=== PATIENT | male | born 1955 | race Caucasian/White ===

== ENCOUNTER 2020-08-10 12:06 | Emergency (ER) | payer MEDICARE, MEDICAID, SELFPAY ==
[2020-08-10 11:43] VITALS: BP 99/64; PULSE 100; O2SAT 91
[2020-08-10 11:46] VITALS: BP 151/131; PULSE 103; RESP 20; TEMP 36.6; O2SAT 99; BMI 33.4
--- NOTE | 2020-08-10 11:48 | HMH.EDNVD ---
ED Disposition Clinical Impression: Gastroenteritis Leukocytosis Qualifiers: Leukocytosis type: other Qualified Code(s): D72.828 - Other elevated white blood cell count Disposition: Home, Self-Care Condition on Discharge: Good Instructions: DI for Diarrhea and Traveler's Diarrhea -- Adult, DI for Nausea -- Adult Referrals: Leonel Dixon MD [Primary Care Provider] - 3 days - Critical Care Critical Care Time: No Attestation: On , the high probability of a clinically significant, sudden or life threatening deterioration of the following system(s) required my full and direct attention, intervention and personal management. The time I documented below is in addition to time spent performing reported procedures but includes the following listed in this critical care notation. Medical Decision Making - Mikey Inquiry Pt receiving controlled substance: No Mikey was queried for this patient: No Vital Signs: 08/10/20 11:43 08/10/20 11:46 08/10/20 12:13 Temperature 97.9 F Temperature Source Oral Pulse Rate [Radial] 100 H 103 H 89 Respiratory Rate 20 Blood Pressure [Right Arm] 99/64 L 151/131 H 90/65 L Blood Pressure Mean [Right Arm] 75 137 73 Blood Pressure Source [Right Arm] Manual Cuff/ Doppler Automatic Cuff Automatic Cuff Blood Pressure Position [Right Arm] Sitting Sitting Sitting 02 Sat by Pulse Oximetry 91 L 99 91 L Oxygen Delivery Method Room Air Room Air Room Air 08/10/20 12:30 Temperature Temperature Source Pulse Rate [Radial] 89 Respiratory Rate Blood Pressure [Right Arm] 102/63 L Blood Pressure Mean [Right Arm] 76 Blood Pressure Source [Right Arm] Automatic Cuff Blood Pressure Position [Right Arm] Sitting 02 Sat by Pulse Oximetry Oxygen Delivery Method - Lab Data Lab Results 08/10/20 11:56: WBC 18.1 H, RBC 4.90, Hgb 15.1, Hct 46.3, MCV 94.3 H, MCH 30.9, MCHC 32.7, RDW 13.8, Plt Count 249, MPV 8.0, Neut % (Auto) 87.6 H, Lymph % (Auto) 2.9 L, [place] % (Auto) 8.2, Eos % (Auto) 0.9, Baso % (Auto) 0.4, Neut # (Auto) 15.9 H, Lymph # (Auto) 0.5 L, [place] # (Auto) 1.5 H, Eos # (Auto) 0.2, Baso # (Auto) 0.1, Total Counted 100, Neutrophils % (Manual) 84 H, Lymphocytes % (Manual) 3 L, Monocytes % (Manual) 12 H, Eosinophils % (Manual) 1, Platelet Estimate Normal, RBC Morphology Normal 08/10/20 11:56: Sodium 143, Potassium 4.5, Chloride 106, Carbon Dioxide 26, Anion Gap 15.5 H, BUN 21 H, Creatinine 1.30 H, Estimated Creat Clear 82, Estimated GFR 56 L, Est GFR ( Amer) 67, Glucose 188 H, Calcium 9.2, Total Bilirubin 0.3, AST 26, ALT 28, Alkaline Phosphatase 82, Total Protein 6.8, Albumin 4.0, Globulin 2.8, Albumin/Globulin Ratio 1.4, Lipase 55 08/10/20 12:05: Urine Color Yellow, Urine Appearance Clear, Urine pH 5.5, Ur Specific [place] >= 1.030, Urine Protein 1+, Urine Glucose (UA) Negative, Urine Ketones Trace, Urine Blood Negative, Urine Nitrate Negative, Urine Bilirubin 1+ A, Urine Urobilinogen 0.2, Ur Leukocyte Esterase Negative, Urine WBC 3-5, Ur Squamous Epith Cells 3-5 Result diagrams: 08/10/20 11:56 08/10/20 11:56 Orders (Tests/Meds): ED MEDICATIONS Discontinued Medications Generic Name Dose Route Start Last Admin Trade Name Freq PRN Reason Stop Dose Admin Sodium Chloride 1,000 mls @ 999 mls/hr 08/10/20 12:00 08/10/20 12:00 Sod Chlor 0.9% 1000ml Bag IV 08/10/20 13:00 999 mls/hr .Q1H1M MARLEN Administration Ondansetron HCl 4 mg 08/10/20 11:48 08/10/20 12:00 Ondansetron 4mg/2ml Vial IV 08/10/20 11:49 4 mg ONCE ONE Administration ORDERS Category Date Time Status Covid-19 IgG/IgM ([facility]) Stat Lab 08/10/20 11:56 Received Covid-19 Nasal PCR ([facility]) Routine Lab 08/10/20 11:46 Ordered Diarrhea 6-11 Panel, Cdiff PCR Stat Lab 08/10/20 12:05 Received Medical Decision Narrative: 65yo M evaluated for nausea/vomiting/diarrhea. Differential diagnosis includes but not limited to: Gastroenteritis, foodborne illness, colitis, small bowel obstruction, ileus, s
[2020-08-10 12:09] LABS: Chloride 106 mmol/L (98-107); Potassium 4.5 mmoL/L (3.5-5.1); Sodium 143 mmol/L (136-145)
[2020-08-10 12:11] LABS: Alanine Aminotransferase 28 U/L (12-78); Aspartate Amino Transferase 26 U/L (17-59); Blood Urea Nitrogen 21 mg/dl (9-20); Creatinine Clearance Estimated 82 mL/min (50-200); Estimated Glomerular Filt Rate 56 ml/min (>60); GFR (African American) 67 ML/MIN (>60)
[2020-08-10 12:12] LABS: Adenovirus F 40/41, stool Not Detected (NotDetected); Astrovirus Not Detected (NotDetected); Campylobacter Not Detected (NotDetected); Clostridium Difficile A/B, PCR Not Detected (NotDetected); Cryptosporidium Not Detected (NotDetected); Cyclospora Cayetanesis Not Detected (NotDetected); Entamoeba histolytica Not Detected (NotDetected); Enteroaggregative E coli Not Detected (NotDetected); Enteropathogenic E coli Not Detected (NotDetected); Enterotoxigenic E coli Not Detected (NotDetected); Giardia lamblia Not Detected (NotDetected); Microscopic, Urine URINE MICROSCOPIC (MICROSCOPIC); Norovirus Not Detected (NotDetected); Plesimonas Shigalloides, PCR Not Detected (NotDetected); Rotavirus A Not Detected (NotDetected); Salmonella, PCR Not Detected (NotDetected); Sapovirus Not Detected (NotDetected); Shiga-like toxin E coli Not Detected (NotDetected); Shigella Enterovasive E coli Not Detected (NotDetected); Vibrio Cholerae Not Detected (NotDetected); Vibrio, PCR Not Detected (NotDetected); Yersinia Entercolitica, PCR Not Detected (NotDetected)
[2020-08-10 12:12] LABS: Albumin/Globulin Ratio 1.4 (1.1-1.8); Alkaline Phosphatase 82 U/L (38-126); Anion Gap 15.5 mEq/L (5-15); Bilirubin,Total 0.3 mg/dl (0.2-1.3); Calcium 9.2 mg/dl (8.4-10.2); Carbon Dioxide 26 mmol/L (22.0-30.0); Globulin 2.8 g/dL (1.3-3.2); Glucose 188 mg/dl (74-100); Lipase 55 U/L (23-300); Total Protein,Serum 6.8 g/dl (6.3-8.2)
[2020-08-10 12:13] VITALS: BP 90/65; PULSE 89; O2SAT 91
[2020-08-10 12:13] LABS: Basophils # 0.1 K/mm3 (0-0.2); Basophils % 0.4 % (0.1-2.0); Eosinophils # 0.2 K/mm3 (0.0-0.4); Eosinophils % 0.9 % (0.1-12.0); Hematocrit 46.3 % (42.0-52.0); Hemoglobin 15.1 g/dL (14.1-18.0); Lymphocytes # 0.5 K/mm3 (0.7-4.5); Lymphocytes % 2.9 % (10-50); Mean Corpuscular HGB Conc 32.7 g/dL (31.8-35.4); Mean Corpuscular Hemoglobin 30.9 pg (27.0-31.2); Mean Corpuscular Volume 94.3 fl (80-94); Monocytes # 1.5 K/mm3 (0.1-1.0); Monocytes % 8.2 % (1.7-9.3); Neutrophils # 15.9 K/mm3 (1.8-7.8); Neutrophils % 87.6 % (37.0-80.0); Platelet Count 249 K/mm3 (142-424); Red Cell Distribution Width 13.8 % (11.5-17.5); White Blood Count 18.1 K/mm3 (4.8-10.8)
[2020-08-10 12:17] LABS: Appearance,Urine CLEAR (Clear); Blood, Urine Negative (Negative); Color,Urine YELLOW (Yellow); Glucose,Urine (UA) Negative (Negative); Ketones,Urine TRACE (Negative); Leukocyte Esterase,Urine Negative (Negative); Nitrate,Urine Negative (Negative); PH,Urine 5.5 (5.0-8.5); Protein,Urine 1+ (Negative); Specific Gravity, Urine >= 1.030 (1.005-1.030); Urobilinogen,Urine 0.2 EU/dl (0.2)
[2020-08-10 12:21] LABS: Bilirubin,Urine 1+ (Negative)
[2020-08-10 12:22] LABS: MANUAL DIFFERENTIAL MANUAL DIFFERENTIAL (MANUAL DIFF)
--- NOTE | 2020-08-10 12:22 | CT_ITS ---
PROCEDURE: CT ABDOMEN PELVIS WO CON CLINICAL INDICATION: n/v, pain, wbc 18 COMPARISON: No exams were available for comparison TECHNIQUE: Axial images obtained with sagittal and coronal reformats. All CT scans at the facility use one or more dose reduction, viz: automated exposure control, ma/kV adjustment per patient size (including targeted exams where dose is matched to indication, i.e. head), or iterative reconstruction technique. FINDINGS: Lower thorax: The lower lung davila are clear. There are small bilateral pleural effusions. There is mild generalized cardiomegaly. ABDOMEN: Liver: No masses or biliary dilatation. Gallbladder: Markedly contracted with a probable tiny calcified gallstone Pancreas: No masses or peripancreatic fluid collections. Spleen: unremarkable Adrenals: unremarkable Kidneys/ureters: Kidneys are normal in size and there is a tiny nonobstructing calculus lower pole of each kidney. There is a tiny exophytic benign-appearing cystic lesion mid pole right kidney. There is no obstructive uropathy of either kidney. ABDOMEN & PELVIS: Stomach bowel: There is a small hiatal hernia. The stomach is mildly dilated with air but appears normal, the duodenal sweep is normal. Small bowel is unremarkable. There are apparent surgical clips in the cecum. There is mild scattered stool and gas seen throughout the colon. There is moderate diffuse diverticulosis of the lower descending and sigmoid colon but there is no evidence of diverticulitis. The rectum appears normal. Peritoneum: There is a ventral hernia just inferior to the umbilicus the mouth of the hernia measuring 2.5 cm containing mesentery and a nondilated loop of small bowel. The hernia sac measures 12.8 x 7.2 by 9.6 cm. There are mild postsurgical changes from left inguinal hernia repair. There is slight haziness to the subcutaneous fat just at and inferior to the umbilicus in adjacent to the hernia which could represent a small area of cellulitis. Lymph nodes: No enlarged lymph nodes apparent. Vasculature: There is mild scattered arteriosclerotic calcification of the lower abdominal aorta at the bifurcation but there is no aneurysm. Bones: There are moderate multilevel degenerate changes lower thoracic spine. PELVIS: Reproductive: unremarkable Bladder: The urinary bladder is decompressed, the prostate is mildly enlarged. .. Appendix: The appendix is not definitely visualized and there may have been a previous appendectomy as there is a surgical clip right lower quadrant. IMPRESSION: Moderate sized ventral hernia inferior to the umbilicus with measurements as described above with nondilated non incarcerated loop of small bowel and mesentery. Possible small diffuse area of cellulitis just to the right of the ventral hernia 1. Small contracted gallbladder with a probable small gallstone 2. Moderate diffuse diverticulosis of the sigmoid colon without diverticulitis Dictated by: Dr. Ernst Mayen MD 08/10/2020 13:32 Dr. Ernst Mayen MD in [place] 08/10/2020 13:32
[2020-08-10 12:24] LABS: Eosinophils % 1 % (0-3); Lymphocytes % 3 % (10-50); Monocytes % 12 % (2-9); Neutrophils % 84 % (42-76); Total Cells Counted 100
[2020-08-10 12:25] LABS: RBC Morphology Normal
[2020-08-10 12:26] LABS: Platelet Estimate Normal
[2020-08-10 12:30] VITALS: BP 102/63; PULSE 89
--- NOTE | 2020-08-10 12:57 | PC.NURSE ---
pt going to radiology
--- NOTE | 2020-08-10 13:12 | PC.NURSE ---
pt returning from radiology
--- NOTE | 2020-08-10 13:13 | PC.NURSE ---
pt taken to restroom
--- NOTE | 2020-08-10 13:27 | PC.NURSE ---
pt going back to restroom
--- NOTE | 2020-08-10 13:39 | PC.NURSE ---
pt returned to room
[2020-08-10 13:59] LABS: Coronavirus 19 IgG Antibody Negative (Negative); Coronavirus 19 IgM Antibody Negative (Negative)
--- NOTE | 2020-08-10 14:16 | PC.NURSE ---
pt taken to restroom
--- NOTE | 2020-08-10 14:40 | PC.NURSE ---
Report given to [facility] by SHAINA Grimes and notified he is ready for pickup at this time.
[2020-08-10 14:48] VITALS: BP 102/63; PULSE 89; RESP 20; TEMP 36.6; O2SAT 99
== END 2020-08-10 14:49 | disposition home or self-care (01) ==
PROVIDERS: Emergency Provider Family Medicine; PCP Emergency Medicine
DX: K52.9 Noninfective gastroenteritis and colitis, unspecified (principal); R19.7 Diarrhea, unspecified; D72.828 Other elevated white blood cell count; Z01.84 Encounter for antibody response examination; E78.5 Hyperlipidemia, unspecified; I10 Essential (primary) hypertension; F41.8 Other specified anxiety disorders; Z79.899 Other long term (current) drug therapy
CPT/HCPCS: 74176; 80053; 81001; 83690; 85007; 85025; 86328; 87506; 96365; 96375; 99284; J2405

== ENCOUNTER 2020-08-12 20:26 | Emergency (ER) | payer MEDICARE, MEDICAID, SELFPAY ==
[2020-08-12 20:31] VITALS: BP 96/61; PULSE 94; RESP 16; TEMP 36.9; O2SAT 95; BMI 34.4
--- NOTE | 2020-08-12 21:21 | HMH.EDNVD ---
ED Disposition Clinical Impression: Ventral hernia without obstruction or gangrene, Diverticulosis, Obesity (BMI 30-39.9), Gastroenteritis, Elevated C-reactive protein (CRP) Disposition: Home, Self-Care Condition on Discharge: Good Instructions: DI for Diarrhea and Traveler's Diarrhea -- Adult Additional Instructions: see dr jo for follow up and use meds as directed Prescriptions: metroNIDAZOLE [Flagyl 500mg Tablet] 500 mg PO TID #30 tab Transmission Status: Pending to [facility] Referrals: Leonel Dioxn MD [Primary Care Provider] - - Critical Care Critical Care Time: No Attestation: On 08/12/20, the high probability of a clinically significant, sudden or life threatening deterioration of the following system(s) required my full and direct attention, intervention and personal management. The time I documented below is in addition to time spent performing reported procedures but includes the following listed in this critical care notation. Medical Decision Making - Medical Records Medical records reviewed: Yes: I reviewed the patient's medical records. - Mikey Inquiry Pt receiving controlled substance: No Vital Signs: 08/12/20 20:31 08/12/20 22:00 08/12/20 22:30 Temperature 98.5 F Temperature Source Oral Pulse Rate [Right] 94 H 97 H 90 Respiratory Rate 16 17 18 Blood Pressure [Right Arm] 96/61 L 121/65 116/65 Blood Pressure Mean [Right Arm] 72 83 82 Blood Pressure Source [Right Arm] Automatic Cuff Automatic Cuff Automatic Cuff Blood Pressure Position [Right Arm] Supine Supine Supine 02 Sat by Pulse Oximetry 95 94 L 93 L Oxygen Delivery Method Room Air Room Air Room Air 08/12/20 23:00 08/12/20 23:46 08/12/20 23:47 Temperature Temperature Source Pulse Rate [Right] 94 H Respiratory Rate 18 Blood Pressure [Right Arm] 107/56 L 144/77 H 102/58 L Blood Pressure Mean [Right Arm] 73 99 72 Blood Pressure Source [Right Arm] Automatic Cuff Automatic Cuff Automatic Cuff Blood Pressure Position [Right Arm] Supine Supine Standing 02 Sat by Pulse Oximetry 92 L Oxygen Delivery Method Room Air 08/13/20 00:30 Temperature Temperature Source Pulse Rate [Right] 80 Respiratory Rate 16 Blood Pressure [Right Arm] 110/65 Blood Pressure Mean [Right Arm] 80 Blood Pressure Source [Right Arm] Automatic Cuff Blood Pressure Position [Right Arm] Supine 02 Sat by Pulse Oximetry 94 L Oxygen Delivery Method Room Air - Lab Data Lab results reviewed: Yes: I reviewed the patient's lab results. Lab Results 08/12/20 20:50: WBC 7.9 D, RBC 4.71, Hgb 14.5, Hct 45.5, MCV 96.5 H, MCH 30.9, MCHC 32.0, RDW 14.0, Plt Count 247, MPV 8.5, Neut % (Auto) 62.5, Lymph % (Auto) 18.3, [place] % (Auto) 15.0 H, Eos % (Auto) 4.0, Baso % (Auto) 0.3, Neut # (Auto) 4.9, Lymph # (Auto) 1.4, [place] # (Auto) 1.2 H, Eos # (Auto) 0.3, Baso # (Auto) 0.0, ESR 25 H 08/12/20 20:50: Sodium 139, Potassium 4.0, Chloride 107, Carbon Dioxide 23, Anion Gap 13.0, BUN 29 H D, Creatinine 1.20, Estimated Creat Clear 89, Estimated GFR 61, Est GFR ( Amer) 74, Glucose 121 H, Calcium 8.5, Total Bilirubin 0.4, AST 23, ALT 21, Alkaline Phosphatase 57, C-Reactive Protein 76.6 H, Total Protein 6.5, Albumin 3.6, Globulin 2.9, Albumin/Globulin Ratio 1.2, Amylase < 30 L, Lipase 35, Procalcitonin 0.555 08/12/20 20:50: SARS-CoV-2 IgG Ab (Rapid) Negative, SARS-CoV-2 IgM Ab (Rapid) Negative Result diagrams: 08/12/20 20:50 08/12/20 20:50 Orders (Tests/Meds): ED MEDICATIONS Generic Name Dose Route Start Last Admin Trade Name Freq PRN Reason Stop Dose Admin Sodium Chloride 1,000 mls @ 999 mls/hr 08/12/20 20:45 08/12/20 22:17 Sod Chlor 0.9% 1000ml Bag IV 08/12/20 21:45 999 mls/hr .Q1H1M MARLEN Administration Sodium Chloride 1,000 mls @ 999 mls/hr 08/12/20 23:45 08/12/20 23:36 Sod Chlor 0.9% 1000ml Bag IV 08/13/20 00:45 999 mls/hr .Q1H1M MARLEN Administration Discontinued Medications Generic Name Dose Route Start Las
[2020-08-12 21:43] LABS: Sodium 139 mmol/L (136-145)
[2020-08-12 21:45] LABS: Alanine Aminotransferase 21 U/L (12-78); Alkaline Phosphatase 57 U/L (38-126); Aspartate Amino Transferase 23 U/L (17-59); Basophils % 0.3 % (0.1-2.0); Bilirubin,Total 0.4 mg/dl (0.2-1.3); Blood Urea Nitrogen 29 mg/dl (9-20); Carbon Dioxide 23 mmol/L (22.0-30.0); Creatinine Clearance Estimated 89 mL/min (50-200); Eosinophils # 0.3 K/mm3 (0.0-0.4); Estimated Glomerular Filt Rate 61 ml/min (>60); GFR (African American) 74 ML/MIN (>60); Hematocrit 45.5 % (42.0-52.0); Hemoglobin 14.5 g/dL (14.1-18.0); Lymphocytes # 1.4 K/mm3 (0.7-4.5); Lymphocytes % 18.3 % (10-50); Mean Corpuscular Hemoglobin 30.9 pg (27.0-31.2); Mean Corpuscular Volume 96.5 fl (80-94); Mean Platelet Volume 8.5 fl (7.4-10.4); Monocytes # 1.2 K/mm3 (0.1-1.0); Neutrophils # 4.9 K/mm3 (1.8-7.8); Neutrophils % 62.5 % (37.0-80.0); Platelet Count 247 K/mm3 (142-424); Red Blood Count 4.71 M/mm3 (4.60-6.20); White Blood Count 7.9 K/mm3 (4.8-10.8)
[2020-08-12 21:46] LABS: Albumin Level 3.6 g/dl (3.5-5.0); Albumin/Globulin Ratio 1.2 (1.1-1.8); Calcium 8.5 mg/dl (8.4-10.2); Chloride 107 mmol/L (98-107); Globulin 2.9 g/dL (1.3-3.2); Glucose 121 mg/dl (74-100); Lipase 35 U/L (23-300); Total Protein,Serum 6.5 g/dl (6.3-8.2)
[2020-08-12 21:51] LABS: C-Reactive Protein 76.6 mg/L (0-4)
[2020-08-12 21:59] LABS: Amylase < 30 U/L (30-110)
[2020-08-12 22:00] VITALS: BP 121/65; PULSE 97; RESP 17; O2SAT 94
[2020-08-12 22:00] LABS: Coronavirus 19 IgG Antibody Negative (Negative); Coronavirus 19 IgM Antibody Negative (Negative)
[2020-08-12 22:07] LABS: Procalcitonin 0.555 ng/mL (0.0-2.0)
[2020-08-12 22:30] VITALS: BP 116/65; PULSE 90; RESP 18; O2SAT 93
[2020-08-12 22:33] LABS: Erythrocyte Sedimentation Rate 25 mm/hr (0-20)
[2020-08-12 23:00] VITALS: BP 107/56; PULSE 94; RESP 18; O2SAT 92
[2020-08-12 23:46] VITALS: BP 144/77
[2020-08-12 23:47] VITALS: BP 102/58; BP 104/59
[2020-08-13 00:30] VITALS: BP 110/65; PULSE 80; RESP 16; O2SAT 94
[2020-08-13 02:19] LABS: Adenovirus F 40/41, stool Not Detected (NotDetected); Astrovirus Not Detected (NotDetected); Campylobacter Not Detected (NotDetected); Clostridium Difficile A/B, PCR Not Detected (NotDetected); Cryptosporidium Not Detected (NotDetected); Cyclospora Cayetanesis Not Detected (NotDetected); Entamoeba histolytica Not Detected (NotDetected); Enteroaggregative E coli Not Detected (NotDetected); Enteropathogenic E coli Not Detected (NotDetected); Enterotoxigenic E coli Not Detected (NotDetected); Giardia lamblia Not Detected (NotDetected); Norovirus Not Detected (NotDetected); Plesimonas Shigalloides, PCR Not Detected (NotDetected); Rotavirus A Not Detected (NotDetected); Salmonella, PCR Not Detected (NotDetected); Sapovirus Not Detected (NotDetected); Shiga-like toxin E coli Not Detected (NotDetected); Shigella Enterovasive E coli Not Detected (NotDetected); Vibrio Cholerae Not Detected (NotDetected); Vibrio, PCR Not Detected (NotDetected); Yersinia Entercolitica, PCR Not Detected (NotDetected)
[2020-08-13 02:31] VITALS: BP 115/67; PULSE 82; RESP 16; TEMP 36.7; O2SAT 98
[2020-08-13 02:35] LABS: Valproic Acid, (Depakene) 63.6 ug/ml (50-100)
== END 2020-08-13 02:34 | disposition home or self-care (01) ==
PROVIDERS: Emergency Provider Emergency Medicine; PCP Emergency Medicine
DX: K43.9 Ventral hernia without obstruction or gangrene (principal); K52.9 Noninfective gastroenteritis and colitis, unspecified; K57.90 Diverticulosis of intestine, part unspecified, without perforation or abscess without bleeding; R79.82 Elevated C-reactive protein (CRP); Z01.84 Encounter for antibody response examination; E66.9 Obesity, unspecified; Z68.34 Body mass index [BMI] 34.0-34.9, adult
CPT/HCPCS: 80053; 80164; 80165; 82150; 83690; 84145; 85025; 85651; 86140; 86328; 87507; 96365; 96366; 96375; 99283; J2405

== ENCOUNTER 2020-10-16 15:13 | Emergency (ER) | payer MEDICARE, MEDICAID, SELFPAY ==
[2020-10-16 15:14] VITALS: BP 140/65; PULSE 104; RESP 16; TEMP 36.6; O2SAT 96; BMI 36.0
--- NOTE | 2020-10-16 15:23 | XR_ITS ---
PROCEDURE: XR CHEST PORTABLE CLINICAL HISTORY: R/O pneumonia Cough COMPARISON: CT CT ABDOMEN PELVIS WO CON from 08/10/2020 FINDINGS: Borderline cardiomegaly without failure. There is an irregular opacity in the right lung base laterally possibly due to an area scarring. Upright PA and lateral chest may provide further evaluation. There is some atelectatic or fibrotic change in the right midlung. No acute bony abnormalities. IMPRESSION: There is an irregular opacity in the right lung base laterally possibly due to an area scarring. Upright PA and lateral chest may provide further evaluation. There is some atelectatic or fibrotic change in the right midlung Dictated by: Josias Thacker MD 10/16/2020 15:59 Josias Thacker MD in [place] 10/16/2020 15:59
[2020-10-16 15:32] LABS: Basophils % 0.3 % (0.1-2.0); Eosinophils # 0.1 K/mm3 (0.0-0.4); Eosinophils % 1.4 % (0.1-12.0); Hematocrit 44.9 % (42.0-52.0); Hemoglobin 14.8 g/dL (14.1-18.0); Lymphocytes # 1.1 K/mm3 (0.7-4.5); Lymphocytes % 13.3 % (10-50); Mean Corpuscular HGB Conc 32.9 g/dL (31.8-35.4); Mean Corpuscular Hemoglobin 30.9 pg (27.0-31.2); Mean Corpuscular Volume 93.8 fl (80-94); Mean Platelet Volume 7.9 fl (7.4-10.4); Monocytes # 0.4 K/mm3 (0.1-1.0); Monocytes % 4.6 % (1.7-9.3); Neutrophils # 6.4 K/mm3 (1.8-7.8); Neutrophils % 80.4 % (37.0-80.0); Platelet Count 198 K/mm3 (142-424); Red Blood Count 4.78 M/mm3 (4.60-6.20); Red Cell Distribution Width 13.9 % (11.5-17.5)
[2020-10-16 15:33] LABS: Chloride 106 mmol/L (98-107); Sodium 141 mmol/L (136-145)
[2020-10-16 15:34] LABS: Potassium 4.3 mmoL/L (3.5-5.1)
[2020-10-16 15:36] LABS: Blood Urea Nitrogen 15 mg/dl (9-20); Creatinine Clearance Estimated 112 mL/min (50-200); Estimated Glomerular Filt Rate 98 ml/min (>60); GFR (African American) 118 ML/MIN (>60)
[2020-10-16 15:37] LABS: Anion Gap 11.3 mEq/L (5-15); Calcium 9.4 mg/dl (8.4-10.2); Carbon Dioxide 28 mmol/L (22.0-30.0); Glucose 205 mg/dl (74-100)
--- NOTE | 2020-10-16 16:02 | HMH.EDNVD ---
ED Disposition Clinical Impression: Nausea vomiting and diarrhea Disposition: Home, Self-Care Condition on Discharge: Good Instructions: DI for Diarrhea and Traveler's Diarrhea -- Adult, Nausea and Vomiting-Adult Prescriptions: Ondansetron [Zofran 4mg ODT] 4 mg PO Q6 PRN #10 tab.rapdis PRN Reason: Nausea Prescription Printed Referrals: Leonel Dixon MD [Primary Care Provider] - 3 days - Critical Care Critical Care Time: No Attestation: On 10/16/20, the high probability of a clinically significant, sudden or life threatening deterioration of the following system(s) required my full and direct attention, intervention and personal management. The time I documented below is in addition to time spent performing reported procedures but includes the following listed in this critical care notation. Medical Decision Making - Medical Records Medical records reviewed: Yes: I reviewed the patient's medical records. - Mikey Inquiry Pt receiving controlled substance: No Vital Signs: 10/16/20 15:14 10/16/20 16:43 Temperature 97.9 F Temperature Source Oral Pulse Rate [Right Radial] 104 H 93 H Respiratory Rate 16 Blood Pressure [Right Arm] 140/65 102/53 L Blood Pressure Mean [Right Arm] 90 69 Blood Pressure Source [Right Arm] Automatic Cuff Automatic Cuff Blood Pressure Position [Right Arm] Supine Sitting 02 Sat by Pulse Oximetry 96 Oxygen Delivery Method Room Air - Lab Data Lab results reviewed: Yes: I reviewed the patient's lab results. Lab Results 10/16/20 15:15: WBC 8.0, RBC 4.78, Hgb 14.8, Hct 44.9, MCV 93.8, MCH 30.9, MCHC 32.9, RDW 13.9, Plt Count 198, MPV 7.9, Neut % (Auto) 80.4 H, Lymph % (Auto) 13.3, [place] % (Auto) 4.6, Eos % (Auto) 1.4, Baso % (Auto) 0.3, Neut # (Auto) 6.4, Lymph # (Auto) 1.1, [place] # (Auto) 0.4, Eos # (Auto) 0.1, Baso # (Auto) 0.0 10/16/20 15:15: Sodium 141, Potassium 4.3, Chloride 106, Carbon Dioxide 28, Anion Gap 11.3, BUN 15, Creatinine 0.80, Estimated Creat Clear 112, Estimated GFR 98, Est GFR ( Amer) 118, Glucose 205 H, Calcium 9.4 10/16/20 15:15: SARS-CoV-2 IgG Ab (Rapid) Negative, SARS-CoV-2 IgM Ab (Rapid) Negative Result diagrams: 10/16/20 15:15 10/16/20 15:15 Orders (Tests/Meds): ED MEDICATIONS Generic Name Dose Route Start Last Admin Trade Name Freq PRN Reason Stop Dose Admin Sodium Chloride 1,000 mls @ 999 mls/hr 10/16/20 16:15 10/16/20 16:15 Sod Chlor 0.9% 1000ml Bag IV 10/16/20 17:15 999 mls/hr .Q1H1M MARLEN Administration Discontinued Medications Generic Name Dose Route Start Last Admin Trade Name Freq PRN Reason Stop Dose Admin Ondansetron HCl 4 mg 10/16/20 16:03 10/16/20 16:16 Ondansetron 4mg/2ml Vial IV 10/16/20 16:04 4 mg ONCE ONE Administration Medical Decision Narrative: Patient has no vomiting or diarrhea here over the course of several hours. His labs are reassuring with no signs of acute dehydration and his clinical exam is not consistent with dehydration. No signs of significant metabolic derangement. His abdominal exam is benign with good bowel sounds in all 4 quadrants. Low suspicion for acute bowel obstruction given history and exam. No urinary symptoms, unlikely UTI. Discharged home with advised to follow-up with primary care provider in 2 to 3 days for reevaluation. Covid antibodies negative Nausea/Vomiting/Diarrhea HPI - General Chief complaint: Nausea/Vomiting/Diarrhea Stated complaint: N/V/D Time Seen by Provider: 10/16/20 16:02 Mode of Arrival: EMS Limitations: No Limitations Description of Symptoms (Recalled from ER Triage Doc. by RN): N/V/D - History of Present Illness HPI Narrative: This is a 65-year-old male with a past medical history significant for diabetes, resident of [facility], who presents here for nausea, vomiting, watery diarrhea he reports for several months, although nausea and vomiting only reported by [facility] this morning. He denies any abdominal pain. Not
[2020-10-16 16:43] VITALS: BP 102/53; PULSE 93
[2020-10-16 16:45] LABS: Coronavirus 19 IgG Antibody Negative (Negative); Coronavirus 19 IgM Antibody Negative (Negative)
--- NOTE | 2020-10-16 17:44 | PC.NURSE ---
[facility] called and stated that they do not have anyone to come pick pt up at this time but they should in about an hour or so.
[2020-10-16 19:14] VITALS: BP 124/79; PULSE 81; RESP 15; TEMP 36.7; O2SAT 98
--- NOTE | 2020-10-16 19:33 | PC.NURSE ---
unable to get a hold of [facility]. called [facility] and they advised they will try and get a hold of them or contact their strategic partner development manager to get in contact with them
--- NOTE | 2020-10-16 20:30 | PC.NURSE ---
continue to wait on ride
--- NOTE | 2020-10-16 20:54 | PC.NURSE ---
called asked for status update on transport. was advised that they wouldn't have any one till in the am. We advised them that we are unable to keep patient in the er all night. was advised they will call their abattoir supervisor.
--- NOTE | 2020-10-16 21:45 | PC.NURSE ---
spoke with [facility] [phone] who states he absolutely cannot get him home. offers car to staff and staff takes home. kraig garza [facility]
== END 2020-10-16 21:44 | disposition home or self-care (01) ==
PROVIDERS: Emergency Provider Emergency Medicine; PCP Emergency Medicine
DX: R11.2 Nausea with vomiting, unspecified (principal); R19.7 Diarrhea, unspecified; E11.9 Type 2 diabetes mellitus without complications; Z79.899 Other long term (current) drug therapy
CPT/HCPCS: 71045; 80048; 85025; 86328; 96365; 96375; 99283; J2405

== ENCOUNTER 2020-10-29 17:14 | Emergency (ER) | payer MEDICARE, MEDICAID, SELFPAY ==
[2020-10-29 17:15] VITALS: BP 118/67; PULSE 70; RESP 20; TEMP 36.7; O2SAT 96; BMI 34.4
[2020-10-29 17:45] VITALS: BP 95/58; PULSE 77; RESP 18; O2SAT 96
--- NOTE | 2020-10-29 17:55 | XR_ITS ---
PROCEDURE: XR LUMBAR SPINE 2-3V CLINICAL INDICATION: pain COMPARISON: CT CT ABDOMEN PELVIS WO CON from 08/10/2020 FINDINGS: AP and cross-table lateral views were obtained. There is normal curvature and alignment. All lumbar vertebrae appear intact. There is no significant joint space narrowing. The SI joints appear normal. There appear to be mild hypertrophic facet changes L4-5 and L5-S1 levels. IMPRESSION: Mild hypertrophic facet changes lower lumbar spine otherwise unremarkable study Dictated by: Dr. Ernst Mayen MD 10/30/2020 08:42 Dr. Ernst Mayen MD in [place] 10/30/2020 08:42
--- NOTE | 2020-10-29 17:55 | HMH.EDBACK ---
ED Disposition Clinical Impression: Lumbago Qualifiers: Chronicity: acute Back pain laterality: unspecified Sciatica presence: without sciatica Qualified Code(s): M54.5 - Low back pain Disposition: Home, Self-Care Condition on Discharge: Good Instructions: DI for Low Back Pain Referrals: PCP,No [Primary Care Provider] - 3 days - Critical Care Critical Care Time: No Attestation: On 10/29/20, the high probability of a clinically significant, sudden or life threatening deterioration of the following system(s) required my full and direct attention, intervention and personal management. The time I documented below is in addition to time spent performing reported procedures but includes the following listed in this critical care notation. Medical Decision Making - Mikey Inquiry Pt receiving controlled substance: No Vital Signs: 10/29/20 17:15 10/29/20 17:45 10/29/20 18:15 Temperature 98.1 F Temperature Source Oral Pulse Rate [Left Radial] 70 77 76 Respiratory Rate 20 18 20 Blood Pressure [Right Arm] 118/67 95/58 L 102/61 L Blood Pressure Mean [Right Arm] 84 70 74 Blood Pressure Source [Right Arm] Automatic Cuff Blood Pressure Position [Right Arm] Sitting 02 Sat by Pulse Oximetry 96 96 96 Oxygen Delivery Method Room Air Room Air Room Air 10/29/20 18:30 Temperature Temperature Source Pulse Rate [Left Radial] 76 Respiratory Rate 18 Blood Pressure [Right Arm] 133/85 Blood Pressure Mean [Right Arm] 101 Blood Pressure Source [Right Arm] Blood Pressure Position [Right Arm] 02 Sat by Pulse Oximetry 97 Oxygen Delivery Method Room Air Orders (Tests/Meds): ORDERS Category Date Time Status Lumbar spine XR 2-3 views [XR lumbar spine 2-3V] Stat Exams 10/29/20 17:55 Taken - Radiology Data #1 Image(s): L-Spine Image Reviewed: Yes I reviewed the patient's radiology image Preliminary Findings: Normal/NAD Medical Decision Narrative: 65yo M evaluated for nontraumatic low back pain. Patient is in no acute distress on initial evaluation. He is tolerating p.o. intake in the emergency department. X-rays reviewed by me personally without acute finding. Patient complains of a intermittent sore throat but denies fever. HEENT exam is benign. Patient seems appropriate and stable for discharge home at this time. He can follow-up with his PCP in 1 to 2 days. Back Pain HPI - General Chief Complaint: Back Pain/Injury Stated Complaint: back pain Time Seen by Provider: 10/29/20 17:55 Mode of Arrival: EMS Limitations: Physical Limitations Description of Symptoms (Recalled from ER Triage Doc. by RN): Patient c/o low back pain this day, assisted living staff reports patient almost fell off of [facility], also reports decreased mobility over past weeks. - History of Present Illness HPI Narrative: 65yo M resident of [facility] presents the emergency department secondary to low back pain. Patient reports he was using the restroom when he almost fell from the commode. He denies fall. Denies any other injury. Patient denies chest pain or shortness of breath. Reports he has a normal appetite. Denies fever, difficulty voiding or having a bowel movement. - Related Data Home Medications Medication Instructions Recorded Confirmed Atorvastatin Calcium [Lipitor 20mg 20 mg PO HS 08/12/20 10/29/20 Tab] Divalproex Sodium [Depakote] 750 mg PO BID 08/12/20 10/29/20 Tamsulosin HCl [Flomax 0.4mg 0.4 mg PO HS 08/12/20 10/29/20 capsule] risperiDONE [Risperidone] 1 mg PO HS 08/12/20 10/29/20 metroNIDAZOLE [Flagyl 500mg 500 mg PO TID 10/16/20 10/29/20 Tablet] Previous Rx's Medication Instructions Recorded lorazepam 0.5 mg tablet 0.5 mg PO TID PRN #90 tab 08/08/20 Ondansetron [Zofran 4mg ODT] 4 mg PO TIDP PRN #12 tab 08/10/20 Ondansetron [Zofran 4mg ODT] 4 mg PO Q6 PRN #10 tab.rapdis 10/16/20 hydrocodone 5 mg-acetaminophen 325 1 tab PO BID #30 tab 10/24/20 mg tablet
[2020-10-29 18:15] VITALS: BP 102/61; PULSE 76; RESP 20; O2SAT 96
[2020-10-29 18:30] VITALS: BP 133/85; PULSE 76; RESP 18; O2SAT 97
--- NOTE | 2020-10-29 19:18 | PC.NURSE ---
called and spoke with live. stated they have to see if management can come get him, as they have nobody on duty that is driving.
[2020-10-29 19:20] VITALS: BP 140/90; PULSE 73; RESP 16; TEMP 36.8; O2SAT 98
== END 2020-10-29 20:41 | disposition home or self-care (01) ==
PROVIDERS: Emergency Provider Family Medicine
DX: M54.5 Low back pain (principal); E78.5 Hyperlipidemia, unspecified; E11.9 Type 2 diabetes mellitus without complications; Z79.899 Other long term (current) drug therapy
CPT/HCPCS: 72100; 99283

== ENCOUNTER → 2021-02-21 07:25 | Outpatient (CLI) | payer MEDICARE, MEDICAID, SELFPAY ==
[2021-02-21 14:43] LABS: Basophils % 0.2 % (0.1-2.0); Eosinophils # 0.6 K/mm3 (0.0-0.4); Eosinophils % 7.6 % (0.1-12.0); Hematocrit 40.2 % (42.0-52.0); Hemoglobin 12.7 g/dL (14.1-18.0); Lymphocytes # 2.1 K/mm3 (0.7-4.5); Lymphocytes % 27.5 % (10-50); Mean Corpuscular HGB Conc 31.6 g/dL (31.8-35.4); Mean Corpuscular Hemoglobin 29.7 pg (27.0-31.2); Mean Corpuscular Volume 93.8 fl (80-94); Monocytes # 0.8 K/mm3 (0.1-1.0); Monocytes % 10.1 % (1.7-9.3); Neutrophils # 4.1 K/mm3 (1.8-7.8); Neutrophils % 54.5 % (37.0-80.0); Platelet Count 202 K/mm3 (142-424); Red Blood Count 4.28 M/mm3 (4.60-6.20); Red Cell Distribution Width 12.8 % (11.5-17.5); White Blood Count 7.5 K/mm3 (4.8-10.8)
[2021-02-21 14:51] LABS: Blood Urea Nitrogen 24 mg/dl (9-20); Chol/HDL Ratio 5.6 (1-3.5); Cholesterol 146 mg/dl (140-200); Estimated Glomerular Filt Rate 114 ml/min (>60); GFR (African American) 138 ML/MIN (>60); HDL Cholesterol 26 mg/dl (40-60); Triglycerides 189 mg/dl (30-150); VLDL Cholesterol 38 mg/dL (0-40)
[2021-02-21 15:02] LABS: Direct LDL Cholesterol 97.52 mg/dL (100-129)
== END ==
PROVIDERS: Visit Provider Emergency Medicine
DX: E11.65 Type 2 diabetes mellitus with hyperglycemia (principal); Z79.4 Long term (current) use of insulin
CPT/HCPCS: 36415; 80061; 82565; 83036; 84520; 85025

== ENCOUNTER 2021-04-12 09:13 | Inpatient (IN) | payer MEDICARE, MEDICAID, SELFPAY ==
[2021-04-12] VITALS (34 sets, daily range): BP systolic 74–110; BP diastolic 47–72; PULSE 63–119; RESP 16–45; TEMP 36.6–38.8; O2SAT 89–99; BMI 22.4; BMI 26.4
--- NOTE | 2021-04-12 09:15 | HMH.EDGENADL ---
ED Disposition Clinical Impression: Acute respiratory failure with hypoxia Sepsis Qualifiers: Sepsis type: sepsis due to unspecified organism Sepsis acute organ dysfunction status: with acute organ dysfunction Severe sepsis acute organ dysfunction type: acute respiratory failure Acute respiratory failure type: with hypoxia Severe sepsis shock status: without septic shock Qualified Code(s): A41.9 - Sepsis, unspecified organism; R65.20 - Severe sepsis without septic shock; J96.01 - Acute respiratory failure with hypoxia PNA (pneumonia) Qualifiers: Pneumonia type: due to unspecified organism Laterality: bilateral Lung location: lower lobe of lung Qualified Code(s): J18.9 - Pneumonia, unspecified organism Disposition: Admitted As Inpatient Condition on Discharge: Fair Time of Disposition: 10:42 - Critical Care Critical Care Time: Yes Attestation: On , the high probability of a clinically significant, sudden or life threatening deterioration of the following system(s) required my full and direct attention, intervention and personal management. The time I documented below is in addition to time spent performing reported procedures but includes the following listed in this critical care notation. Total Critical Care Time: 35 Vital system(s) involved:: Respiratory Failure My critical care processes included: Assessment & monitoring of V/S, Initial and Re-exams, Data Review/Interpretation, Coordinating Care, Medication Orders and management, Documentation Medical Decision Making - Medical Records Medical records reviewed: Yes: I reviewed the patient's medical records. - Mikey Inquiry Pt receiving controlled substance: No Vital Signs: 04/12/21 09:14 Temperature 101.8 F H Temperature Source Rectal Pulse Rate [Right] 114 H Respiratory Rate 42 H Blood Pressure [Right Arm] 102/70 L Blood Pressure Mean [Right Arm] 80 Blood Pressure Source [Right Arm] Automatic Cuff Blood Pressure Position [Right Arm] Supine 02 Sat by Pulse Oximetry 90 L Oxygen Delivery Method Nasal Cannula Oxygen Flow Rate (LPM) 4 - Lab Data Lab results reviewed: Yes: I reviewed the patient's lab results. Lab Results 04/12/21 09:16: SARS-CoV-2 (PCR) Not detected, Influenza A Untype (PCR) Not detected, Influenza Type B (PCR) Not detected 04/12/21 09:25: WBC 10.9 H, RBC 5.05, Hgb 15.4, Hct 46.8, MCV 92.7, MCH 30.5, MCHC 32.9, RDW 14.2, Plt Count 230, MPV 7.8, Neut % (Auto) 82.4 H, Lymph % (Auto) 8.2 L, [place] % (Auto) 9.0, Eos % (Auto) 0.2, Baso % (Auto) 0.2, Neut # (Auto) 9.0 H, Lymph # (Auto) 0.9, [place] # (Auto) 1.0, Eos # (Auto) 0.0, Baso # (Auto) 0.0 04/12/21 09:25: Sodium 147 H, Potassium 4.5, Chloride 109 H, Carbon Dioxide 28, Anion Gap 14.5, BUN 51 H, Creatinine 1.10, Estimated Creat Clear 67, Estimated GFR 68, Est GFR ( Amer) 82, Glucose 233 H, Calcium 9.4, Total Bilirubin 0.4, AST 29, ALT 20, Alkaline Phosphatase 57, Troponin I 0.02, NT-Pro-B Natriuret Pep 267 H, Total Protein 6.6, Albumin 3.6, Globulin 3.0, Albumin/Globulin Ratio 1.2 04/12/21 09:25: Lactate 1.6 Result diagrams: 04/12/21 09:25 04/12/21 09:25 Orders (Tests/Meds): ED MEDICATIONS Generic Name Dose Route Start Last Admin Trade Name Freq PRN Reason Stop Dose Admin Vancomycin HCl 1,000 mg/ 250 mls @ 125 mls/hr 04/12/21 09:16 Sodium Chloride IV 04/12/21 11:15 ONCE ONE Protocol Lactated Ringer's 2,070 mls @ 1,035 mls/hr 04/12/21 09:20 04/12/21 09:33 Lactated Ringer's 1000 Ml Bag 30 ml/kg infuse over 2 hr (2070 ml) 04/12/21 11:19 1,035 mls/hr IV Administration .Q2H ONE Discontinued Medications Generic Name Dose Route Start Last Admin Trade Name Freq PRN Reason Stop Dose Admin Cefepime HCl 2 gm/ Sodium 100 mls @ 200 mls/hr 04/12/21 09:16 04/12/21 09:33 Chloride IV 04/12/21 09:45 200 mls/hr ONCE ONE Administration Protocol ORDERS Category Date Time Status Troponin I Q3H Lab 04/12/21 12:30 Ordered Troponin I Q3H L
--- NOTE | 2021-04-12 09:16 | XR_ITS ---
PROCEDURE: XR CHEST PORTABLE CLINICAL HISTORY: sepsis COMPARISON: CR XR CHEST PORTABLE from 10/16/2020 FINDINGS: The cardiomediastinal silhouette and pulmonary vascularity are within normal limits. Patchy infiltrates are present in both lower lobes. Upper lobes are clear. No acute bony abnormalities. IMPRESSION: Patchy bilateral lower lobe infiltrates Dictated by: Josias Thacker MD 04/12/2021 09:50 Josias Thacker MD in [facility] 04/12/2021 09:50
--- NOTE | 2021-04-12 09:39 | ECG_ITS ---
APPROVED REPORT Exam: Resting ECG HR:114 bpm ECG Measurements Heart Rate 114 AXES PA 122 P 44 QRSd 84 QRS 0 QT 292 T 76 QTc 402 Conclusion Sinus tachycardia Possible Inferior infarct, age undetermined Abnormal ECG Electronically signed by : Flaquito Stewart, 04/14/2021 21:06:49
[2021-04-12 09:41] LABS: Basophils % 0.2 % (0.1-2.0); Eosinophils % 0.2 % (0.1-12.0); Hematocrit 46.8 % (42.0-52.0); Hemoglobin 15.4 g/dL (14.1-18.0); Lymphocytes # 0.9 K/mm3 (0.7-4.5); Lymphocytes % 8.2 % (10-50); Mean Corpuscular HGB Conc 32.9 g/dL (31.8-35.4); Mean Corpuscular Hemoglobin 30.5 pg (27.0-31.2); Mean Corpuscular Volume 92.7 fl (80-94); Mean Platelet Volume 7.8 fl (7.4-10.4); Neutrophils % 82.4 % (37.0-80.0); Platelet Count 230 K/mm3 (142-424); Red Blood Count 5.05 M/mm3 (4.60-6.20); Red Cell Distribution Width 14.2 % (11.5-17.5); White Blood Count 10.9 K/mm3 (4.8-10.8)
[2021-04-12 09:44] LABS: Chloride 109 mmol/L (98-107); Potassium 4.5 mmoL/L (3.5-5.1); Sodium 147 mmol/L (136-145)
[2021-04-12 09:46] LABS: Alanine Aminotransferase 20 U/L (12-78); Aspartate Amino Transferase 29 U/L (17-59); Blood Urea Nitrogen 51 mg/dl (9-20); Creatinine Clearance Estimated 67 mL/min (50-200); Estimated Glomerular Filt Rate 68 ml/min (>60); GFR (African American) 82 ML/MIN (>60)
[2021-04-12 09:47] LABS: Albumin Level 3.6 g/dl (3.5-5.0); Albumin/Globulin Ratio 1.2 (1.1-1.8); Alkaline Phosphatase 57 U/L (38-126); Anion Gap 14.5 mEq/L (5-15); Bilirubin,Total 0.4 mg/dl (0.2-1.3); Calcium 9.4 mg/dl (8.4-10.2); Carbon Dioxide 28 mmol/L (22.0-30.0); Glucose 233 mg/dl (74-100); Total Protein,Serum 6.6 g/dl (6.3-8.2)
[2021-04-12 09:48] LABS: Lactic Acid 1.6 mmol/L (0.7-2.1)
[2021-04-12 09:56] LABS: NT Pro Brain Natriuretic Pep. 267 pg/mL (0-125)
[2021-04-12 09:57] LABS: Coronavirus 19, PCR Not Detected (NotDetected); Influenza A, PCR Not Detected (NotDetected); Influenza B, PCR Not Detected (NotDetected)
[2021-04-12 10:00] LABS: Troponin I 0.02 ng/ml (0.00-0.034)
--- NOTE | 2021-04-12 10:00 | PC.NURSE ---
Spoke with Keke Carranza from [facility] to update her on patient condition and that patient was getting discharged. Keke states that she is leaving facility within the next 5 minutes and will be at hospital within the next 45 min.
--- NOTE | 2021-04-12 11:04 | PC.NURSE ---
Addendum entered by Jude Connolly RN 04/12/21 12:09: called * Original Note: cad second floor to give report to João. At this time he is busy and states that he will call me back to receive report.
--- NOTE | 2021-04-12 12:11 | PC.NURSE ---
tried to call report again, and stock handler floorperson states that João RN is trying to transfer a patient. waiting call back to take report on patient
--- NOTE | 2021-04-12 12:15 | PC.NURSE ---
called [facility] S[facility] to provide update on patient condition and informing them that he will be admitted as inpatient into the hospital.
--- NOTE | 2021-04-12 13:05 | PC.NURSE ---
contacted second floor again at this time to get report called on pt, SHAINA Simon speaking with receiving nurse at this time.
--- NOTE | 2021-04-12 13:07 | PC.NURSE ---
called report to SHAINA hale
--- NOTE | 2021-04-12 15:18 | HMH.PHACONS ---
- Pharmacy Consult Date: 04/12/21 Time: 15:18 Referring provider: AYE Reason for Consult:: VANCOMYCIN DOSING Allergies and ADEs:: Allergies Allergy/AdvReac Type Severity Reaction Status Date / Time No Known Allergies Allergy Verified 03/23/21 11:16 Home Medications:: Home Medications Medication Instructions Recorded Confirmed Type Ondansetron [Zofran 4mg ODT] 4 mg PO TIDP PRN #12 tab 08/10/20 04/12/21 Rx Atorvastatin Calcium [Lipitor 20mg 20 mg PO HS 08/12/20 04/12/21 History Tab] Divalproex Sodium [Depakote] 750 mg PO BID 08/12/20 04/12/21 History risperiDONE [Risperidone] 1 mg PO HS 08/12/20 04/12/21 History Benztropine Mesylate [Cogentin 1mg 1 mg PO DAILY 04/12/21 04/12/21 History tablet] Celecoxib [Celebrex 200mg cap] 200 mg PO BID 04/12/21 04/12/21 History Docusate Sodium [Colace] 100 mg PO BID 04/12/21 04/12/21 History Linagliptin [Tradjenta 5mg tablet] 5 mg PO DAILY 04/12/21 04/12/21 History Loperamide HCl [Imodium 2 mg 2 mg PO DAILY 04/12/21 04/12/21 History capsule] Metformin HCl [Glucophage 500mg 500 mg PO BID 04/12/21 04/12/21 History Tablet] Pantoprazole Sodium [Protonix 40mg 40 mg PO DAILY 04/12/21 04/12/21 History (granule) packet] Sertraline HCl [Zoloft 100mg 100 mg PO DAILY 04/12/21 04/12/21 History tablet] glipiZIDE [Glucotrol 5mg tablet] 5 mg PO BID 04/12/21 04/12/21 History lisinopriL [Zestril 10mg Tab] 10 mg PO DAILY 04/12/21 04/12/21 History Height: 1.7 m Weight: 76.459 kg Laboratory Results:: Laboratory Results - last 24 hr 04/12/21 09:16: SARS-CoV-2 (PCR) Not detected, Influenza A Untype (PCR) Not detected, Influenza Type B (PCR) Not detected 04/12/21 09:25: WBC 10.9 H, RBC 5.05, Hgb 15.4, Hct 46.8, MCV 92.7, MCH 30.5, MCHC 32.9, RDW 14.2, Plt Count 230, MPV 7.8, Neut % (Auto) 82.4 H, Lymph % (Auto) 8.2 L, [place] % (Auto) 9.0, Eos % (Auto) 0.2, Baso % (Auto) 0.2, Neut # (Auto) 9.0 H, Lymph # (Auto) 0.9, [place] # (Auto) 1.0, Eos # (Auto) 0.0, Baso # (Auto) 0.0 04/12/21 09:25: Sodium 147 H, Potassium 4.5, Chloride 109 H, Carbon Dioxide 28, Anion Gap 14.5, BUN 51 H, Creatinine 1.10, Estimated Creat Clear 67, Estimated GFR 68, Est GFR ( Amer) 82, Glucose 233 H, Calcium 9.4, Total Bilirubin 0.4, AST 29, ALT 20, Alkaline Phosphatase 57, Troponin I 0.02, NT-Pro-B Natriuret Pep 267 H, Total Protein 6.6, Albumin 3.6, Globulin 3.0, Albumin/Globulin Ratio 1.2 04/12/21 09:25: Lactate 1.6 Medical History: Reports:: BPH, Diabetes Mellitus Type 2, Gastroesophageal Reflux Disease(GERD), Hyperlipidemia, Hypertension, Seizures Assessment and Plan - Assessment and plan all Dx Assessment and Plan for all problems:: Subjective and Objective Data: This is a 65 year old MALE patient. Measured serum creatinine (SCr) is 1.1 mg/dL. Given a height of 170.18 cm and a weight of 76.459 kg, estimated creatinine clearance is 74.3 mL/min (using the CrCl TBW body weight). Patient received a one-time loading dose of vancomycin IV 1 gram in the ED 04/12/21 at 10:37. The following targets were selected for dosing: - Desired AUC = 500 mcg*h/mL - Desired Cmax = 35 mcg/mL - Desired Cmin = 12.5 mcg/mL - Vd coefficient = 0.65 L/kg - Ke equation = CrCl*0.54722+0.0044 Calculations: Based on above, the following are calculated parameters for AUC-based vancomycin dosing in this patient: - Calculated Vd = 49.55612L - Calculated Ke = 0.066 inverse hours - Calculated half-life = 10.5 hours Prescribed Dosing: Recommend empiric dose of vancomycin IV 1750mg [id number] Which is predicted to achieve the following parameters: - Estimated AUC = 532.7 mcg*h/mL - Estimated Cmax = 44.3 mcg/mL - Estimated Cmin = 10.3 mcg/mL Thank you for involving pharmacy in the care of this patient.
[2021-04-12 15:21] LABS: ABG Base Excess 1.6 mmol/L (-2.4-2.3); ABG HCO3 26.2 mmhg (22.0-26.0); ABG Oxygen Saturation 92 % (90-100); ABG PCO2 41.9 mmhg (35.0-45.0); ABG PH 7.41 mmol/L (7.35-7.45); ABG PO2 63.6 mmhg (80-100); ABG TCO2 27.5 mmhg (23-27)
[2021-04-12 15:22] LABS: Allen's Test Patient Unable; Source Left Radial
[2021-04-12 15:24] LABS: Lactate Arterial 1.7 mmol/L (0.4-2.0)
--- NOTE | 2021-04-12 15:32 | PC.NURSE ---
received report from jannette campbell
--- NOTE | 2021-04-12 16:39 | CA_ITS ---
APPROVED REPORT EXAM: Comprehensive 2D, Doppler, and color-flow Echocardiogram Livestock Counter: Ana Laura Ellison RT(R) Ht: 5 ft 7 in Wt: 168lbs BSA: 1.88 BP: 102/70 mmHg Indications: sepsis, HTN, DM, SOB, hyperlipidemia, acute resp failure, GERD LV Diastology E Decel Time 257.00 (160-240 msec) E/A Ratio 1.0 MED E' 7.80 (< 7 cm/sec) E'/MED E' Ratio 9.08 (>14) LAT E' 9.30 (<10 cm/sec) E/LAT E' Ratio 7.61 (>14) Mitral Valve MV E Max Doug. 71.00 (40-130 cm/s) MV A Velocity 71.00 (40-130 cm/s) E/A Ratio 1.00 MV Decel. Time 257.00 (160-240 ms) MV PHT 75.00 ms Left Ventricle Technically difficult study because of the patient factors and poor acoustic windows. Left atrium is mildly enlarged, left ventricle is normal size, mild concentric left ventricular hypertrophy, visually estimated ejection fraction 55% with no regional wall motion abnormality, grade 1 diastolic dysfunction seen without tissue Doppler evidence of raise left atrial pressure. Right Ventricle Right atrium and right ventricle are normal size and contractility. Aortic Valve Aortic valve is minimally thickened and fibrosed, there is no aortic stenosis or aortic insufficiency. Mitral Valve Mitral valve is grossly normal, there is trace mitral regurgitation. Tricuspid Valve Tricuspid valve grossly normal, there is trace tricuspid regurgitation, tricuspid regurgitation jet velocity is inadequate for calculation of the right ventricular systolic pressure. Pulmonic Valve Pulmonic valve is poorly visualized. Great Vessels Aortic root is normal size. Pericardium No significant pericardial effusion noted. Conclusion 1. Technically difficult study because of the patient factors and poor acoustic windows 2. Mildly enlarged left atrium, normal left ventricular size, mild concentric left ventricular hypertrophy, visually estimated ejection fraction 55% with no regional wall motion abnormality, grade 1 diastolic dysfunction without tissue Doppler evidence of raise left atrial pressure. 3. Mild mitral and tricuspid regurgitation. 4. No significant pericardial effusion noted. Electronically signed by : Eric Marsh, 04/12/2021 18:37:00
--- NOTE | 2021-04-12 16:44 | HMH.HP ---
*Admission Date: 04/12/21 *Chief complaint: pneumonia *History of present illness: Patient is a 65-year-old white male, jail resident. The jail staff had called the office earlier today late symptoms of labored breathing cough and clinical suggestions of pneumonia. Was taken to the emergency room for further evaluation. Imaging revealed patchy lower lobe infiltrations. Patient's saturations were marginal spite supplemental O2. Was tachypneic, and met criteria for sepsis. He is admitted for further evaluation and treatment. Shortly after arriving to the floor patient's oxygen requirements increased he became hypotensive. Vapotherm at 50%, 30 L was initiated as well as Levophed, concurrent with a fluid bolus. Placed on a regimen of cefepime and vancomycin, cultures were obtained. [facility] History Medical History: Reports:: BPH, Diabetes Mellitus Type 2, Gastroesophageal Reflux Disease(GERD), Hyperlipidemia, Hypertension, Seizures *Have you ever received a pneumonia vaccine?: Yes *Have you received a flu vaccine this season?: Yes Laterality Cases: Bilateral: Tonsillectomy - *Social History Smoking Status: Unknown if ever smoked Alcohol Intake: never *Occupational Status:: disabled *Travel in the last 8 weeks: None Family Hx:: Unable to obtain Review of Systems - Constitutional Reports fatigue, Reports fever(s) - Eyes Denies change in vision - ENT Denies abnormal hearing - *Cardiovascular Reports shortness of breath, Reports shortness of breath with activity - *Respiratory Reports change in phlegm color, Reports chest congestion, Reports cough, Reports shortness of breath - *Gastrointestinal Denies abdominal pain - *Genitourinary Denies difficulty urinating - *Musculoskeletal Reports abnormal walking, Reports muscle weakness - Integumentary/Breasts Denies change in skin color - *Neurologic Reports weakness - Psychiatric Denies behavioral changes - Endocrine Denies cold intolerance - Hematologic/Lymphatic Denies easy bleeding, Denies easy bruising - Allergic/Immunologic Reports hives Meds Home Medications Medication Instructions Recorded Confirmed Type Ondansetron [Zofran 4mg ODT] 4 mg PO TIDP PRN #12 tab 08/10/20 04/12/21 Rx Atorvastatin Calcium [Lipitor 20mg 20 mg PO HS 08/12/20 04/12/21 History Tab] Divalproex Sodium [Depakote] 750 mg PO BID 08/12/20 04/12/21 History risperiDONE [Risperidone] 1 mg PO HS 08/12/20 04/12/21 History Benztropine Mesylate [Cogentin 1mg 1 mg PO DAILY 04/12/21 04/12/21 History tablet] Celecoxib [Celebrex 200mg cap] 200 mg PO BID 04/12/21 04/12/21 History Docusate Sodium [Colace] 100 mg PO BID 04/12/21 04/12/21 History Linagliptin [Tradjenta 5mg tablet] 5 mg PO DAILY 04/12/21 04/12/21 History Loperamide HCl [Imodium 2 mg 2 mg PO DAILY 04/12/21 04/12/21 History capsule] Metformin HCl [Glucophage 500mg 500 mg PO BID 04/12/21 04/12/21 History Tablet] Pantoprazole Sodium [Protonix 40mg 40 mg PO DAILY 04/12/21 04/12/21 History (granule) packet] Sertraline HCl [Zoloft 100mg 100 mg PO DAILY 04/12/21 04/12/21 History tablet] glipiZIDE [Glucotrol 5mg tablet] 5 mg PO BID 04/12/21 04/12/21 History lisinopriL [Zestril 10mg Tab] 10 mg PO DAILY 04/12/21 04/12/21 History Allergies Allergy/AdvReac Type Severity Reaction Status Date / Time No Known Allergies Allergy Verified 03/23/21 11:16 Exam Vital signs and Labs for Last 24 Hours: Temp Pulse Resp BP Pulse Ox 98.2 F 83 19 95/59 L 97 04/12/21 16:00 04/12/21 16:00 04/12/21 16:00 04/12/21 16:00 04/12/21 16:14 Laboratory Results - last 24 hr 04/12/21 09:16: SARS-CoV-2 (PCR) Not detected, Influenza A Untype (PCR) Not detected, Influenza Type B (PCR) Not detected 04/12/21 09:25: WBC 10.9 H, RBC 5.05, Hgb 15.4, Hct 46.8, MCV 92.7, MCH 30.5, MCHC 32.9, RDW 14.2, Plt Count 230, MPV 7.8, Neut % (Auto) 82.4 H, Lymph % (Auto) 8.2 L, [place] % (Auto)
--- NOTE | 2021-04-12 16:45 | PC.NURSE ---
per telephone conversation with dr collier, we may attempt to wean pt off of vapotherm as tolerated. keep map above 65
--- NOTE | 2021-04-12 17:25 | DIET.NUTRFU ---
Addendum entered by Merline Nava 04/15/21 17:23: Speech eval recommendations per speech for mechanical soft diet with thin liquids with assistance all meals, diet altered. Please observe aspiration precautions and alternate sips/bites. No straws. Addendum entered by Merline Nava 04/15/21 16:29: Pt doing okay, had speech eval and placed on pureed diet with honey thickened liquids, awaiting MBS results. PO intakes 75% Original Note: Price Serna confirms pt has been on regular consistency diet but has been having new difficulty with s/s aspiration, was admit here at [facility] before speech eval was able to take place. Recommend speech evaluation, advancement to appropriate dysphagia therapeutic/ADA diet.
--- NOTE | 2021-04-12 18:06 | P.CONPHA_ITS ---
[facility] Pharmacy VTE Monitoring - Patient Demographics Admission date: 04/12/21 Report Date: 04/12/21 Time: 18:06 Allergies/Adverse Reactions: Patient Allergies No Known Allergies Allergy (Verified 03/23/21 11:16) Height: 1.7 m Weight: 76.459 kg Patient Problems: Current Active Problems Leukocytosis (Acute) Sepsis (Acute) PNA (pneumonia) (Acute) Acute respiratory failure with hypoxia (Acute) - VTE Risk Labs: VTE Related Lab Results Hgb 15.4 g/dL (14.1-18.0) 04/12/21 09:25 Hct 46.8 % (42.0-52.0) 04/12/21 09:25 Plt Count 230 K/mm3 (142-424) 04/12/21 09:25 BUN 51 mg/dl (9-20) H 04/12/21 09:25 Creatinine 1.10 mg/dl (0.66-1.25) 04/12/21 09:25 Estimated Creat Clear 67 mL/min (50-200) 04/12/21 09:25 VTE Risk Level: Low Risk - Prophylaxis VTE Prophylaxis Ordered?: Yes Types of VTE Prophylaxis: TEDS Knee High Location of Applied Device: Not Applicable Pharmacologic Type: Enoxaparin - VTE Diagnosis Confirmed Treatment or plan recommended: Continue Current Treatment
[2021-04-13] VITALS (18 sets, daily range): BP systolic 112–135; BP diastolic 60–83; PULSE 61–96; RESP 16–21; TEMP 36.7–36.9; O2SAT 93–100; BMI 27.3
--- NOTE | 2021-04-13 01:02 | PC.NURSE ---
He is alert to name and birthday. He does not answer questions at times. His speech is clear when he does speak. Difficulty getting him to take medications. His hands are contracted. He is incontinent of urine. Still need UA. Have attempted to obtain urine but was unsuccessful. He has been weaned off of vapotherm to 4LPM n/c. Levophed has been discontinued.
[2021-04-13 05:07] LABS: POC Glucose,Bedside 142 (70-110)
[2021-04-13 06:36] LABS: Basophils % 0.3 % (0.1-2.0); Eosinophils % 0.2 % (0.1-12.0); Lymphocytes # 0.8 K/mm3 (0.7-4.5); Lymphocytes % 12.3 % (10-50); Mean Corpuscular HGB Conc 33.4 g/dL (31.8-35.4); Mean Corpuscular Hemoglobin 31.5 pg (27.0-31.2); Mean Corpuscular Volume 94.1 fl (80-94); Mean Platelet Volume 8.8 fl (7.4-10.4); Monocytes # 0.4 K/mm3 (0.1-1.0); Monocytes % 6.7 % (1.7-9.3); Neutrophils # 5.2 K/mm3 (1.8-7.8); Neutrophils % 80.4 % (37.0-80.0); Platelet Count 103 K/mm3 (142-424); Red Blood Count 3.55 M/mm3 (4.60-6.20); Red Cell Distribution Width 13.9 % (11.5-17.5); White Blood Count 6.5 K/mm3 (4.8-10.8)
[2021-04-13 06:37] LABS: Hematocrit 33.4 % (42.0-52.0); Hemoglobin 11.2 g/dL (14.1-18.0)
[2021-04-13 06:53] LABS: Blood Urea Nitrogen 35 mg/dl (9-20); Carbon Dioxide 30 mmol/L (22.0-30.0); Chloride 112 mmol/L (98-107); Creatinine Clearance Estimated 85 mL/min (50-200); Estimated Glomerular Filt Rate 136 ml/min (>60); GFR (African American) 165 ML/MIN (>60); Glucose 160 mg/dl (74-100); Sodium 146 mmol/L (136-145)
[2021-04-13 06:57] LABS: Calcium 8.4 mg/dl (8.4-10.2)
--- NOTE | 2021-04-13 12:22 | HMH.ACPN2 ---
Internal Medicine - PN: Subj *Date: 04/13/21 *Time: 12:28 Interval history: wbc trending down to 6.5 hgb stable at 11.2 02 at 4 lpm off pressors lethargic, baseline Exam Vital signs and Labs for Last 24 Hours: Temp Pulse Resp BP Pulse Ox 98.3 F 73 18 123/80 96 04/13/21 08:00 04/13/21 11:04 04/13/21 10:00 04/13/21 10:00 04/13/21 11:03 Laboratory Results - last 24 hr 04/12/21 14:32: Specimen Source Left radial, O2 % 4plm nc, ABG pH 7.41, ABG pCO2 41.9, ABG pO2 63.6 L, ABG HCO3 26.2 H, ABG Total CO2 27.5 H, ABG O2 Saturation 92, ABG Base Excess 1.6, Josias Test Patient unable 04/12/21 14:32: ABG Lactate 1.7 04/13/21 05:00: POC Glucose 142 H 04/13/21 05:55: WBC 6.5 D, RBC 3.55 L D, Hgb 11.2 L D, Hct 33.4 L, MCV 94.1 H, MCH 31.5 H, MCHC 33.4, RDW 13.9, Plt Count 103 L D, MPV 8.8, Neut % (Auto) 80.4 H, Lymph % (Auto) 12.3, [place] % (Auto) 6.7, Eos % (Auto) 0.2, Baso % (Auto) 0.3, Neut # (Auto) 5.2, Lymph # (Auto) 0.8, [place] # (Auto) 0.4, Eos # (Auto) 0.0, Baso # (Auto) 0.0 04/13/21 05:55: Sodium 146 H, Potassium 4.0, Chloride 112 H, Carbon Dioxide 30, Anion Gap 8.0, BUN 35 H D, Creatinine 0.60 L D, Estimated Creat Clear 85, Estimated GFR 136, Est GFR ( Amer) 165 D, Glucose 160 H D, Calcium 8.4 D I & O for Last 24 hours: Intake & Output 04/10/21 04/11/21 04/12/21 04/13/21 23:59 23:59 23:59 23:59 Intake Total 1367 / 1367 Output Total 0 / 0 0 / 0 Balance 0 / 0 1367 / 1367 Weight 168 lb 9 oz 174 lb 11.2 oz Microbiology Reports for the Last 24 Hours: Microbiology 04/12/21 08:02 Sputum - Expectorated Sputum Gram Stain - Final 04/12/21 08:02 Sputum - Expectorated Sputum Sputum Culture - Preliminary - Constitutional no acute distress, disheveled, somnolent - *Routine HEENT Exam Head: Present: normocephalic Eye: Present: EOMI, PERRL ENT: Present: mucous membranes moist - *Routine Neck Exam Present: supple. Absent: lymphadenopathy - *Routine Respiratory Exam Present: crackles, diminished air movement. Absent: accessory muscle use, wheezes - *Routine Cardiovascular Exam Present: RRR - *Routine Abdominal Exam Present: soft, normoactive bowel sounds. Absent: tenderness - *Routine Extremities Exam Absent: cyanosis, clubbing, edema - *Routine Skin Exam Present: lesions. Absent: intact, jaundice Comments: stage 2 sacrum decub - *Routine Neurological Exam Present: vision grossly intact, hearing grossly intact. Absent: facial asymmetry - Routine Psychiatric Exam Present: depressed. Absent: good insight, agitated, paranoid Assessment and Plan (1) Acute respiratory failure with hypoxia Status: Acute Category: Medical Code(s): J96.01 - Acute respiratory failure with hypoxia (2) PNA (pneumonia) Status: Acute Qualifiers: Pneumonia type: due to unspecified organism Laterality: bilateral Lung location: lower lobe of lung Qualified Code(s): J18.9 - Pneumonia, unspecified organism Category: Medical Code(s): J18.9 - Pneumonia, unspecified organism (3) Sepsis Status: Acute Qualifiers: Sepsis type: sepsis due to unspecified organism Sepsis acute organ dysfunction status: with acute organ dysfunction Severe sepsis acute organ dysfunction type: acute respiratory failure Acute respiratory failure type: with hypoxia Severe sepsis shock status: without septic shock Qualified Code(s): A41.9 - Sepsis, unspecified organism; R65.20 - Severe sepsis without septic shock; J96.01 - Acute respiratory failure with hypoxia Category: Medical Code(s): A41.9 - Sepsis, unspecified organism (4) Leukocytosis Status: Acute Qualifiers: Leukocytosis type: other Qualified Code(s): D72.828 - Other elevated white blood cell count Category: Medical Code(s): D72.829 - Elevated white blood cell count, unspecified (5) Sacral decubitus ulcer, stage II Status: Acute Category: Medical Code(s): L89.152 - Pressure ulcer
--- NOTE | 2021-04-13 16:01 | PC.WOUNDNOTE ---
left buttock stage II [id number]
[2021-04-14] VITALS (12 sets, daily range): BP systolic 112–161; BP diastolic 62–89; PULSE 59–90; RESP 18–20; TEMP 36.6–37.6; O2SAT 92–99; BMI 27.7
--- NOTE | 2021-04-14 03:45 | PC.NURSE ---
He is A&Ox2. He stated he was in [place]. He is being turned and repositioned q 2 hours. He has been incontinent of urine. No BM this shift. Oral care provided.
[2021-04-14 06:11] LABS: Basophils % 0.5 % (0.1-2.0); Eosinophils # 0.1 K/mm3 (0.0-0.4); Eosinophils % 1.3 % (0.1-12.0); Hematocrit 32.1 % (42.0-52.0); Hemoglobin 10.5 g/dL (14.1-18.0); Lymphocytes # 1.1 K/mm3 (0.7-4.5); Mean Corpuscular HGB Conc 32.7 g/dL (31.8-35.4); Mean Corpuscular Hemoglobin 30.9 pg (27.0-31.2); Mean Corpuscular Volume 94.5 fl (80-94); Mean Platelet Volume 8.1 fl (7.4-10.4); Monocytes # 0.4 K/mm3 (0.1-1.0); Monocytes % 6.5 % (1.7-9.3); Neutrophils # 4.5 K/mm3 (1.8-7.8); Neutrophils % 73.7 % (37.0-80.0); Platelet Count 126 K/mm3 (142-424); White Blood Count 6.1 K/mm3 (4.8-10.8)
[2021-04-14 07:08] LABS: Chloride 114 mmol/L (98-107)
[2021-04-14 07:09] LABS: Sodium 147 mmol/L (136-145)
[2021-04-14 07:11] LABS: Alanine Aminotransferase 19 U/L (12-78); Aspartate Amino Transferase 25 U/L (17-59); Blood Urea Nitrogen 25 mg/dl (9-20); Carbon Dioxide 32 mmol/L (22.0-30.0); Creatinine Clearance Estimated 86 mL/min (50-200); Estimated Glomerular Filt Rate 168 ml/min (>60); GFR (African American) 203 ML/MIN (>60)
[2021-04-14 07:12] LABS: Albumin Level 2.4 g/dl (3.5-5.0); Albumin/Globulin Ratio 1.1 (1.1-1.8); Alkaline Phosphatase 49 U/L (38-126); Bilirubin,Total 0.2 mg/dl (0.2-1.3); Calcium 8.4 mg/dl (8.4-10.2); Globulin 2.2 g/dL (1.3-3.2); Glucose 117 mg/dl (74-100); Total Protein,Serum 4.6 g/dl (6.3-8.2)
--- NOTE | 2021-04-14 16:28 | HMH.ACPN2 ---
Internal Medicine - PN: Subj *Date: 04/14/21 *Time: 16:28 Interval history: His white count continues to trend down, he is off pressors. Is more alert, more talkative. Is complaining of being hungry, we will start a pur?ed diet. Speech evaluation is planned at the bedside. Currently receiving O2 at 3 L/min and maintaining a decent saturation. Exam Vital signs and Labs for Last 24 Hours: Temp Pulse Resp BP Pulse Ox 99.6 F 65 18 161/89 H 99 04/14/21 15:27 04/14/21 15:27 04/14/21 15:27 04/14/21 15:27 04/14/21 15:27 Laboratory Results - last 24 hr 04/14/21 05:45: WBC 6.1, RBC 3.40 L, Hgb 10.5 L, Hct 32.1 L, MCV 94.5 H, MCH 30.9, MCHC 32.7, RDW 14.0, Plt Count 126 L, MPV 8.1, Neut % (Auto) 73.7, Lymph % (Auto) 18.0, [place] % (Auto) 6.5, Eos % (Auto) 1.3, Baso % (Auto) 0.5, Neut # (Auto) 4.5, Lymph # (Auto) 1.1, [place] # (Auto) 0.4, Eos # (Auto) 0.1, Baso # (Auto) 0.0 04/14/21 05:45: Sodium 147 H, Potassium 4.0, Chloride 114 H, Carbon Dioxide 32 H, Anion Gap 5.0, BUN 25 H D, Creatinine 0.50 L, Estimated Creat Clear 86, Estimated GFR 168, Est GFR ( Amer) 203 D, Glucose 117 H D, Calcium 8.4, Total Bilirubin 0.2, AST 25, ALT 19, Alkaline Phosphatase 49, Total Protein 4.6 L D, Albumin 2.4 L, Globulin 2.2, Albumin/Globulin Ratio 1.1 I & O for Last 24 hours: Intake & Output 04/11/21 04/12/21 04/13/21 04/14/21 23:59 23:59 23:59 23:59 Intake Total 2422 / 2422 848 / 848 Output Total 0 / 0 0 / 0 Balance 0 / 0 2422 / 2422 848 / 848 Weight 168 lb 9 oz 174 lb 11.2 oz 176 lb 11.2 oz Microbiology Reports for the Last 24 Hours: Microbiology 04/12/21 09:25 Blood Blood Culture - Preliminary NO GROWTH AFTER 48 HOURS 04/12/21 09:25 Blood Blood Culture - Preliminary NO GROWTH AFTER 48 HOURS 04/12/21 08:02 Sputum - Expectorated Sputum Gram Stain - Final 04/12/21 08:02 Sputum - Expectorated Sputum Sputum Culture - Preliminary - Constitutional no acute distress, chronically ill appearing - *Routine HEENT Exam Head: Present: normocephalic Eye: Present: EOMI, PERRL ENT: Present: mucous membranes moist - *Routine Neck Exam Present: supple. Absent: lymphadenopathy - *Routine Respiratory Exam Present: crackles. Absent: accessory muscle use, respiratory distress - *Routine Cardiovascular Exam Present: RRR - *Routine Abdominal Exam Present: soft, normoactive bowel sounds. Absent: tenderness - *Routine Extremities Exam Absent: cyanosis, clubbing, edema - *Routine Skin Exam Present: warm. Absent: rash - *Routine Neurological Exam Present: alert, oriented X3, moving all extremities, vision grossly intact, hearing grossly intact Assessment and Plan (1) Acute respiratory failure with hypoxia Status: Acute Category: Medical Code(s): J96.01 - Acute respiratory failure with hypoxia (2) PNA (pneumonia) Status: Acute Qualifiers: Pneumonia type: due to unspecified organism Laterality: bilateral Lung location: lower lobe of lung Qualified Code(s): J18.9 - Pneumonia, unspecified organism Category: Medical Code(s): J18.9 - Pneumonia, unspecified organism (3) Sepsis Status: Acute Qualifiers: Sepsis type: sepsis due to unspecified organism Sepsis acute organ dysfunction status: with acute organ dysfunction Severe sepsis acute organ dysfunction type: acute respiratory failure Acute respiratory failure type: with hypoxia Severe sepsis shock status: without septic shock Qualified Code(s): A41.9 - Sepsis, unspecified organism; R65.20 - Severe sepsis without septic shock; J96.01 - Acute respiratory failure with hypoxia Category: Medical Code(s): A41.9 - Sepsis, unspecified organism (4) Leukocytosis Status: Acute Qualifiers: Leukocytosis type: other Qualified Code(s): D72.828 - Other elevated white blood cell count Category: Medical Code(s): D72.829 - Elevated white blood ce
[2021-04-14 21:18] LABS: Vancomycin,Trough 8.4 ug/mL (5.0-10.0)
[2021-04-15] VITALS (11 sets, daily range): BP systolic 109–121; BP diastolic 60–68; PULSE 58–71; RESP 16–19; TEMP 36.6–36.8; O2SAT 92–97; BMI 28.1
[2021-04-15 02:00] LABS: Vancomycin,Peak 23.3 ug/ml (11-39)
--- NOTE | 2021-04-15 03:48 | PC.NURSE ---
Patient is alert and oriented x2. Dsg applied to left gluteus. Patient has had no complaints this shift. He has been turned q 2 hour. He is incontinent of bowel & bladder. No BM this shift. Patient's vital signs are stable. Will continue to monitor.
[2021-04-15 05:50] LABS: POC Glucose,Bedside 121 (70-110)
--- NOTE | 2021-04-15 06:00 | FL_ITS ---
PROCEDURE: FL BARIUM SWALLOW MODIFIED CLINICAL INDICATION: Dysphagia COMPARISON: No exams were available for comparison TECHNIQUE: Patient administered varying consistencies of barium contrast, while viewed in lateral position under real-time fluoroscopy with cine recording. FLUOROSCOPY TIME:3 minutes and 43 seconds The study was performed in conjunction with speech pathologist. Please see that report & recommendations. FINDINGS: Patient was given varying consistencies of barium. No aspiration or penetration. No significant delay. There is some residual with mechanical soft. Initially the pill was lodged in the vallecular region.. IMPRESSION: No aspiration or penetration. There is some residual with mechanical soft. There was difficulty swallowing the barium tablet which was lodged initially in the vallecular region but eventually passed with thin wash. Please see speech pathologist report and recommendations. Dictated by: Josias Thacker MD 04/16/2021 15:15 Josias Thacker MD in [place] 04/16/2021 15:15
--- NOTE | 2021-04-15 08:22 | XR_ITS ---
PROCEDURE: XR CHEST PORTABLE CLINICAL HISTORY: pneumonia COMPARISON: CR XR CHEST PORTABLE from 10/16/2020 CR XR CHEST PORTABLE from 04/12/2021 FINDINGS: Cardiomegaly without failure. Patchy bibasilar airspace disease once again noted and may be slightly improved. Upper lobes are clear. No acute bony abnormalities. IMPRESSION: Slight improvement bibasilar infiltrates Dictated by: Josias Thacker MD 04/15/2021 08:50 Josias Thacker MD in [place] 04/15/2021 08:50
[2021-04-15 09:05] LABS: POC Glucose,Bedside 211 (70-110)
[2021-04-15 09:05] LABS: POC Glucose,Bedside 120 (70-110)
[2021-04-15 09:05] LABS: POC Glucose,Bedside 112 (70-110)
[2021-04-15 09:05] LABS: POC Glucose,Bedside 101 (70-110)
[2021-04-15 09:05] LABS: POC Glucose,Bedside 118 (70-110)
--- NOTE | 2021-04-15 09:33 | HMH.PTWOUND ---
Rehab Inpt Wound Evaluation Rehab IP Wound Evaluation Start: 04/15/21 09:28 Freq: Status: Active Protocol: Document 04/15/21 09:28 LEYDA (Rec: 04/15/21 09:33 LEYDA [id number]) Rehab PT Wound Assessment Patient Status Premedicated Prior to Dressing Change No Subjective Subjective Pt is alert to name, birthday and place. Pt agreea to allow CWS to look at wound on buttocks. Wound Medial Buttock Wound Type Skin Tear Wound Length (cm) 4 Wound Width (cm) 4 Wound Bed Appearance Dusky Red Percentage of Eschar (Purple) (%) 100 Wound Margins Description Indistinct Surrounding Tissue Appearance [place],Dark Red,Purple Drainage Amount Scant Drainage Odor No Odor Dressing Status Dry & Intact Primary Dressing Absorbant Pad Comment optifoam sacral Wound Debridement Amount of Tissue None Removed Dressing Change Patient Tolerance Tolerated Well Plan/Recommendation Comment At this time pressure relief and covering of wound are necessary. No debridement or skilled wound care required at this time. Wound appears to be a shearing injury and/or DTI. Monitor wound for continue changes and re- consult wound care if changes occur. Thank you Eval Complexity Eval Charge Codes 48155 - Moderate Complexity G-codes PT Current Status Other PT/OT Status PT Current Status Modifier CM-At least 80% but less than 100% impaired, limited or restricted PT Goal Status Other PT/OT Status PT Goal Status Modifer CM-At least 80% but less than 100% impaired, limited or restricted PHYSICIAN CERTIFICATION: I certify the specified therapy services for Jamil Sahu are required, authorized, and reviewed every 30 days.
--- NOTE | 2021-04-15 09:55 | PC.NURSE ---
Pt room air sat 95%
[2021-04-15 12:32] LABS: POC Glucose,Bedside 166 (70-110)
--- NOTE | 2021-04-15 12:35 | HMH.PULMCON ---
*Admission Date: 04/12/21 *Reason for consult:: Acute hypoxic respiratory failure, pneumonia *History of present illness: Mr. Sahu is a 65-year-old male no prior respiratory complaints, not on therapy, no significant smoking history presented to the hospital with worsening respiratory failure with hypoxia and presumed shock chest x-ray showing pulmonary infiltrates and pulmonary was called for further management. Patient admits significant improvement in his symptoms [facility] History Medical History: Reports:: BPH, Diabetes Mellitus Type 2, Gastroesophageal Reflux Disease(GERD), Hyperlipidemia, Hypertension, Seizures *Have you ever received a pneumonia vaccine?: Yes *Have you received a flu vaccine this season?: Yes Laterality Cases: Bilateral: Tonsillectomy - *Social History Smoking Status: Unknown if ever smoked Alcohol Intake: never *Occupational Status:: disabled *Travel in the last 8 weeks: None Family Hx:: Unable to obtain ROS - Cons Denies anorexia, Denies body ache(s), Denies chills - Card Reports shortness of breath with activity - Resp Respiratory: Reports shortness of breath, Reports chest congestion, Reports dyspnea, Reports excessive phlegm production, Reports cough with sputum production - GI Gastrointestingal: Denies: abdominal pain - Psych Reports abnormal sleep pattern Meds Home Medications Medication Instructions Recorded Confirmed Type Ondansetron [Zofran 4mg ODT] 4 mg PO TIDP PRN #12 tab 08/10/20 04/12/21 Rx Atorvastatin Calcium [Lipitor 20mg 20 mg PO HS 08/12/20 04/12/21 History Tab] Divalproex Sodium [Depakote] 750 mg PO BID 08/12/20 04/12/21 History risperiDONE [Risperidone] 1 mg PO HS 08/12/20 04/12/21 History Benztropine Mesylate [Cogentin 1mg 1 mg PO DAILY 04/12/21 04/12/21 History tablet] Celecoxib [Celebrex 200mg cap] 200 mg PO BID 04/12/21 04/12/21 History Docusate Sodium [Colace] 100 mg PO BID 04/12/21 04/12/21 History Linagliptin [Tradjenta 5mg tablet] 5 mg PO DAILY 04/12/21 04/12/21 History Loperamide HCl [Imodium 2 mg 2 mg PO DAILY 04/12/21 04/12/21 History capsule] Metformin HCl [Glucophage 500mg 500 mg PO BID 04/12/21 04/12/21 History Tablet] Pantoprazole Sodium [Protonix 40mg 40 mg PO DAILY 04/12/21 04/12/21 History (granule) packet] Sertraline HCl [Zoloft 100mg 100 mg PO DAILY 04/12/21 04/12/21 History tablet] glipiZIDE [Glucotrol 5mg tablet] 5 mg PO BID 04/12/21 04/12/21 History lisinopriL [Zestril 10mg Tab] 10 mg PO DAILY 04/12/21 04/12/21 History Allergies Allergy/AdvReac Type Severity Reaction Status Date / Time No Known Allergies Allergy Verified 03/23/21 11:16 Exam - Constitutional Constitutional:: Present: no acute distress, comfortable - HENMT Exam HENMT: Present: normocephalic, atraumatic - Eye Exam Eyes:: Present: normal appearance both eyes and related structures - Neck Exam Neck:: Present: normal visual inspection - Respiratory Exam Respiratory:: Present: able to speak in complete sentences, no respiratory distress, normal respiratory effort, crackles - Cardiovascular Exam Cardiac:: Present: S1, S2 - GI Exam GI:: Present: soft - Skin Exam Skin: Present: warm, no rash - Neurological Exam Neurological: Present: alert, awake - Extremities Exam Extremities: Present: no cyanosis, no clubbing, no edema Internal Medicine - CN: Reslt - Labs CBC & Chem 7: 04/14/21 05:45 04/14/21 05:45 - ABG Interpretation ABG results: 04/12/21 14:32 ABG pH 7.41 ABG pCO2 41.9 ABG pO2 63.6 L ABG HCO3 26.2 H ABG Total CO2 27.5 H ABG O2 Saturation 92 ABG Base Excess 1.6 Assessment and Plan (1) Acute respiratory failure with hypoxia Status: Acute Category: Medical Code(s): J96.01 - Acute respiratory failure with hypoxia (2) PNA (pneumonia) Status: Acute Qualifiers: Pneumonia type: due to unspecified organism Laterality: bilateral Lung location: lower lobe
--- NOTE | 2021-04-15 12:45 | HMH.ACPN2 ---
Internal Medicine - PN: Subj *Date: 04/15/21 *Time: 08:25 Interval history: pt states he is feeling ok Exam Vital signs and Labs for Last 24 Hours: Temp Pulse Resp BP Pulse Ox 98.3 F 58 L 16 121/68 92 L 04/15/21 11:29 04/15/21 12:43 04/15/21 11:29 04/15/21 11:29 04/15/21 11:29 Laboratory Results - last 24 hr 04/13/21 11:58: POC Glucose 120 H 04/13/21 16:30: POC Glucose 101 04/13/21 20:52: POC Glucose 118 H 04/14/21 11:40: POC Glucose 112 H 04/14/21 20:44: Vancomycin Trough 8.4 04/14/21 21:09: POC Glucose 211 H 04/15/21 01:00: Vancomycin Peak 23.3 04/15/21 05:30: POC Glucose 121 H 04/15/21 12:16: POC Glucose 166 H I & O for Last 24 hours: Intake & Output 04/13/21 04/14/21 04/15/21 04/16/21 11:59 11:59 11:59 11:59 Intake Total 1367 / 1367 1903 / 1903 2427 / 2427 Output Total 0 / 0 0 / 0 Balance 1367 / 1367 1903 / 1903 2427 / 2427 Weight 174 lb 11.2 oz 176 lb 11.2 oz 179 lb 9.6 oz Microbiology Reports for the Last 24 Hours: Microbiology 04/12/21 08:02 Sputum - Expectorated Sputum Gram Stain - Final 04/12/21 08:02 Sputum - Expectorated Sputum Sputum Culture - Preliminary 04/12/21 09:25 Blood Blood Culture - Preliminary NO GROWTH AFTER 48 HOURS 04/12/21 09:25 Blood Blood Culture - Preliminary NO GROWTH AFTER 48 HOURS - Constitutional no acute distress, chronically ill appearing - *Routine HEENT Exam Head: Present: normocephalic Eye: Present: PERRL ENT: Present: mucous membranes moist - *Routine Neck Exam Present: supple. Absent: lymphadenopathy - *Routine Respiratory Exam Present: CTA bilaterally - *Routine Cardiovascular Exam Present: RRR - *Routine Abdominal Exam Present: soft, normoactive bowel sounds. Absent: tenderness - *Routine Extremities Exam Absent: cyanosis, clubbing, edema Comments: left side weakness- prior cva - *Routine Skin Exam Present: warm. Absent: rash Comments: stage 2 on buttocks - *Routine Neurological Exam Present: alert, oriented X3 - Routine Psychiatric Exam Present: normal affect Assessment and Plan (1) Acute respiratory failure with hypoxia Status: Acute Category: Medical Code(s): J96.01 - Acute respiratory failure with hypoxia (2) PNA (pneumonia) Status: Acute Qualifiers: Pneumonia type: due to unspecified organism Laterality: bilateral Lung location: lower lobe of lung Qualified Code(s): J18.9 - Pneumonia, unspecified organism Category: Medical Code(s): J18.9 - Pneumonia, unspecified organism (3) Sepsis Status: Acute Qualifiers: Sepsis type: sepsis due to unspecified organism Sepsis acute organ dysfunction status: with acute organ dysfunction Severe sepsis acute organ dysfunction type: acute respiratory failure Acute respiratory failure type: with hypoxia Severe sepsis shock status: without septic shock Qualified Code(s): A41.9 - Sepsis, unspecified organism; R65.20 - Severe sepsis without septic shock; J96.01 - Acute respiratory failure with hypoxia Category: Medical Code(s): A41.9 - Sepsis, unspecified organism (4) Leukocytosis Status: Acute Qualifiers: Leukocytosis type: other Qualified Code(s): D72.828 - Other elevated white blood cell count Category: Medical Code(s): D72.829 - Elevated white blood cell count, unspecified (5) Sacral decubitus ulcer, stage II Status: Acute Category: Medical Code(s): L89.152 - Pressure ulcer of sacral region, stage 2 (6) Hypotension Status: Acute Category: Medical Code(s): I95.9 - Hypotension, unspecified (7) 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
--- NOTE | 2021-04-15 14:11 | HMH.SLMBS2 ---
Speech & Language Evaluation Speech/Language Mod Barium Swallow Start: 04/13/21 12:31 Freq: ONCE Status: Complete Protocol: Document 04/15/21 14:04 SHARRON (Rec: 04/15/21 14:11 SHARRON [id number]) General Information General Current Food Consistancy Dysphagia Mechanical Soft, Ground Meats,Thin Liquids Dentition Good Dentition Oxygen Status Room Air Facial Symmetry Symmetrical Patient Orientation Person,Place Ability to Follow Directions Good Communication Ability Mild Impairment MBS Recommendations Diet Dietary Recommendations Dysphagia Mechanical Soft, Ground Meats,Thin Liquids Treatment/Strategies Strategy/Precaution Recommend Sitting Upright (90 deg),No Straw,Small Bites and Sips, Alternate Liquids/Solids Mod Barium Swallow Impressions Summary and Impressions Oral Phase Impression No Impairment (WFL) Oral Phase Summary Mr. Sahu was given the following consistencies: honey , nectar, thins via straw and open cup, pudding, pureed, mechanical soft, regular, and pill with thin wash. No oral phase impairments noted. Pharyngeal Phase Impression Mild Impairment Pharyngeal Phase Summary Mr. Sahu exhibited residue in valleculae, pharyngeal wall, and pyriform sinuses with mechanical soft and regular. Mr. Sahu had vallecular residue with pill with thin wash. It required 5 boluses to clear pill from valleculae. Speech/Language MBS Assessment/Goals/Plan Assessment Date of Evaluation: 04/15/21 Evaluation Type Initial Certification Assessment/Problems Dysphagia Does Patient Qualify for Service No Qualify/Failure Comment Patient placed on least restrictive diet. Recommendations PHYSICIAN CERTIFICATION: The specified therapy services are required, authorized, and reviewed every 30 days. Diet Recommendations Mechanical Soft Liquid Type Recommendations Normal/Thin SL Swallow Guidelines Assist w/all meals,Alt bite w/ sip thru meal,Standard Aspiration Prec. Dysphagia Swallow Precautions/Strategies Sitting Upright (90 deg),No Straw,Small Bites and Sips, Alternate Liquids/Solids Plan Pt/Guardian verbally ack understanding Yes: RN and CM notifie
--- NOTE | 2021-04-15 14:50 | SW/DCPLANNER ---
Addendum entered by Susanne Pagan 04/15/21 14:56: PATIENT IS UNDER STATE GUARDIANSHIP, HIS ADJUSTER LEADER IS HANK WHITE.. Original Note: PATIENT ADMITTED TO [facility] FROM [place] [facility] WITH A DIAGNOSIS OF SEPSIS AND PNEUMONIA....PATIENT IS A LONGSTANDING RESIDENT OF [facility] AND HE IS THERE UNDER MEDICAID ICF LEVEL OF CARE, THEY ARE HOLDING HIS BED FOR HIS RETURN... DISPOSITION UNCERTAIN, CM WILL CONTINUE TO FOLLOW PATIENT THROUGH HIS ACUTE CARE STAY...
[2021-04-15 16:09] LABS: POC Glucose,Bedside 178 (70-110)
--- NOTE | 2021-04-15 16:19 | P.PN_ITS ---
Internal Medicine - PN: Subj *Date: 04/15/21 *Time: 16:19 Exam Vital signs and Labs for Last 24 Hours: Temp Pulse Resp BP Pulse Ox 97.8 F 59 L 18 109/67 L 92 L 04/15/21 15:29 04/15/21 15:29 04/15/21 15:29 04/15/21 15:29 04/15/21 15:29 Laboratory Results - last 24 hr 04/13/21 11:58: POC Glucose 120 H 04/13/21 16:30: POC Glucose 101 04/13/21 20:52: POC Glucose 118 H 04/14/21 11:40: POC Glucose 112 H 04/14/21 20:44: Vancomycin Trough 8.4 04/14/21 21:09: POC Glucose 211 H 04/15/21 01:00: Vancomycin Peak 23.3 04/15/21 05:30: POC Glucose 121 H 04/15/21 12:16: POC Glucose 166 H 04/15/21 15:53: POC Glucose 178 H I & O for Last 24 hours: Intake & Output 04/12/21 04/13/21 04/14/21 04/15/21 23:59 23:59 23:59 23:59 Intake Total 2422 / 2422 2526 / 2526 1289 / 1289 Output Total 0 / 0 0 / 0 Balance 0 / 0 2422 / 2422 2526 / 2526 1289 / 1289 Weight 76.459 kg 79.243 kg 80.15 kg 81.465 kg Microbiology Reports for the Last 24 Hours: Microbiology 04/12/21 08:02 Sputum - Expectorated Sputum Gram Stain - Final 04/12/21 08:02 Sputum - Expectorated Sputum Sputum Culture - Preliminary Assessment and Plan (1) Acute respiratory failure with hypoxia Status: Acute Category: Medical Code(s): J96.01 - Acute respiratory failure with hypoxia (2) PNA (pneumonia) Status: Acute Qualifiers: Pneumonia type: due to unspecified organism Laterality: bilateral Lung location: lower lobe of lung Qualified Code(s): J18.9 - Pneumonia, unspecified organism Category: Medical Code(s): J18.9 - Pneumonia, unspecified organism (3) Sepsis Status: Acute Qualifiers: Sepsis type: sepsis due to unspecified organism Sepsis acute organ dysfunc tion status: with acute organ dysfunction Severe sepsis acute organ dysfunction type: acute respiratory failure Acute respiratory failure type: with hypoxia Severe sepsis shock status: without septic shock Qualified Code(s): A41.9 - Sepsis, unspecified organism; R65.20 - Severe sepsis without septic shock; J96.01 - Acute respiratory failure with hypoxia Category: Medical Code(s): A41.9 - Sepsis, unspecified organism (4) Leukocytosis Status: Acute Qualifiers: Leukocytosis type: other Qualified Code(s): D72.828 - Other elevated white blood cell count Category: Medical Code(s): D72.829 - Elevated white blood cell count, unspecified (5) Sacral decubitus ulcer, stage II Status: Acute Category: Medical Code(s): L89.152 - Pressure ulcer of sacral region, stage 2 (6) Hypotension Status: Acute Category: Medical Code(s): I95.9 - Hypotension, unspecified (7) 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
--- NOTE | 2021-04-15 17:34 | PC.NURSE ---
Pt has been pleasant and cooperative this shift. Alert to person only. No complaints of pain or SOA. Pt is currently on room air with sats. >90%. Lung sounds reveal expiratory rhonchi. Telemetry reveals NSR. No edema noted. Stage 2 ulceration noted to coccyx and covered with a pressure-relief dressing. Pt has been turned/repositioned Q2H this shift and requires frequent oral care. Pt is incontinent of bowel/bladder and a brief is in place. Urine is clear and yellow. No BM thus far today. Pt requires assistance with feeding and appetite is good. Pt eats the majority of all meals. FSBS results have been 166 and 178. 18 G peripheral IV in the LT forearm is patent and infusing LR @ 75 ML/HR. VSS. Call light within reach. Will continue to monitor.
[2021-04-15 21:36] LABS: Vancomycin,Trough 7.2 ug/mL (5.0-10.0)
[2021-04-15 22:18] LABS: POC Glucose,Bedside 236 (70-110)
[2021-04-16] VITALS: BP 115/64; PULSE 50; PULSE 72; RESP 17; TEMP 36.7; O2SAT 97
[2021-04-16 04:00] VITALS: BP 122/71; PULSE 40; PULSE 55; RESP 16; TEMP 36.6; O2SAT 95
[2021-04-16 05:00] VITALS: BMI 29.8
[2021-04-16 06:00] LABS: POC Glucose,Bedside 80 (70-110)
--- NOTE | 2021-04-16 06:00 | XR_ITS ---
PROCEDURE INFORMATION: Exam: XR Chest Exam date and time: 04/16/2021 6:00 AM Age: 65 years old Clinical indication: Cough; Additional info: Pneumonia TECHNIQUE: Imaging protocol: XR of the chest. Views: 1 view. COMPARISON: CR XR CHEST PORTABLE 04/15/2021 8:39 AM FINDINGS: Lungs: Small amount of streaky consolidation in the mid right lung. The remaining pulmonary parenchyma is clear. No other pulmonary infiltrate or consolidation. No pulmonary nodules or masses. Pleural spaces: Unremarkable. No pleural effusion. No pneumothorax. Heart/Mediastinum: Unremarkable. No cardiomegaly. Bones/joints: Unremarkable. IMPRESSION: 1. Minimal streaky consolidation in the mid right lung may represent atelectasis or pneumonia. 2. No other acute changes in the chest.
[2021-04-16 06:25] VITALS: PULSE 54; PULSE 56
[2021-04-16 07:22] LABS: Basophils % 0.5 % (0.1-2.0); Eosinophils # 0.2 K/mm3 (0.0-0.4); Eosinophils % 3.1 % (0.1-12.0); Hematocrit 33.3 % (42.0-52.0); Hemoglobin 11.2 g/dL (14.1-18.0); Lymphocytes # 1.3 K/mm3 (0.7-4.5); Lymphocytes % 16.8 % (10-50); Mean Corpuscular HGB Conc 33.7 g/dL (31.8-35.4); Mean Platelet Volume 9.2 fl (7.4-10.4); Monocytes # 0.5 K/mm3 (0.1-1.0); Monocytes % 6.8 % (1.7-9.3); Neutrophils # 5.5 K/mm3 (1.8-7.8); Neutrophils % 72.9 % (37.0-80.0); Platelet Count 162 K/mm3 (142-424); Red Blood Count 3.62 M/mm3 (4.60-6.20); Red Cell Distribution Width 13.9 % (11.5-17.5); White Blood Count 7.6 K/mm3 (4.8-10.8)
[2021-04-16 07:27] LABS: Chloride 109 mmol/L (98-107)
[2021-04-16 07:28] LABS: Potassium 3.3 mmoL/L (3.5-5.1); Sodium 143 mmol/L (136-145)
[2021-04-16 07:31] LABS: Anion Gap 7.3 mEq/L (5-15); Blood Urea Nitrogen 12 mg/dl (9-20); Calcium 8.3 mg/dl (8.4-10.2); Carbon Dioxide 30 mmol/L (22.0-30.0); Creatinine Clearance Estimated 92 mL/min (50-200); Estimated Glomerular Filt Rate 217 ml/min (>60); GFR (African American) 263 ML/MIN (>60); Glucose 84 mg/dl (74-100)
[2021-04-16 08:00] VITALS: BP 102/52; PULSE 61; RESP 18; TEMP 36.5; O2SAT 98
--- NOTE | 2021-04-16 08:53 | HMH.PHACONS ---
- Pharmacy Consult Date: 04/16/21 Time: 08:54 Referring provider: DR. GRIFFITHS Reason for Consult:: VANCOMYCIN DOSE CHANGE Allergies and ADEs:: Allergies Allergy/AdvReac Type Severity Reaction Status Date / Time No Known Allergies Allergy Verified 03/23/21 11:16 Home Medications:: Home Medications Medication Instructions Recorded Confirmed Type Ondansetron [Zofran 4mg ODT] 4 mg PO TIDP PRN #12 tab 08/10/20 04/12/21 Rx Atorvastatin Calcium [Lipitor 20mg 20 mg PO HS 08/12/20 04/12/21 History Tab] Divalproex Sodium [Depakote] 750 mg PO BID 08/12/20 04/12/21 History risperiDONE [Risperidone] 1 mg PO HS 08/12/20 04/12/21 History Benztropine Mesylate [Cogentin 1mg 1 mg PO DAILY 04/12/21 04/12/21 History tablet] Celecoxib [Celebrex 200mg cap] 200 mg PO BID 04/12/21 04/12/21 History Docusate Sodium [Colace] 100 mg PO BID 04/12/21 04/12/21 History Linagliptin [Tradjenta 5mg tablet] 5 mg PO DAILY 04/12/21 04/12/21 History Loperamide HCl [Imodium 2 mg 2 mg PO DAILY 04/12/21 04/12/21 History capsule] Metformin HCl [Glucophage 500mg 500 mg PO BID 04/12/21 04/12/21 History Tablet] Pantoprazole Sodium [Protonix 40mg 40 mg PO DAILY 04/12/21 04/12/21 History (granule) packet] Sertraline HCl [Zoloft 100mg 100 mg PO DAILY 04/12/21 04/12/21 History tablet] glipiZIDE [Glucotrol 5mg tablet] 5 mg PO BID 04/12/21 04/12/21 History lisinopriL [Zestril 10mg Tab] 10 mg PO DAILY 04/12/21 04/12/21 History Height: 1.7 m Weight: 86.228 kg Laboratory Results:: Laboratory Results - last 24 hr 04/13/21 11:58: POC Glucose 120 H 04/13/21 16:30: POC Glucose 101 04/13/21 20:52: POC Glucose 118 H 04/14/21 11:40: POC Glucose 112 H 04/14/21 21:09: POC Glucose 211 H 04/15/21 12:16: POC Glucose 166 H 04/15/21 15:53: POC Glucose 178 H 04/15/21 20:51: Vancomycin Trough 7.2 04/15/21 22:11: POC Glucose 236 H 04/16/21 05:49: POC Glucose 80 04/16/21 06:22: WBC 7.6, RBC 3.62 L, Hgb 11.2 L, Hct 33.3 L, MCV 92.0, MCH 31.0, MCHC 33.7, RDW 13.9, Plt Count 162 D, MPV 9.2, Neut % (Auto) 72.9, Lymph % (Auto) 16.8, [place] % (Auto) 6.8, Eos % (Auto) 3.1, Baso % (Auto) 0.5, Neut # (Auto) 5.5, Lymph # (Auto) 1.3, [place] # (Auto) 0.5, Eos # (Auto) 0.2, Baso # (Auto) 0.0 04/16/21 06:22: Sodium 143, Potassium 3.3 L, Chloride 109 H, Carbon Dioxide 30, Anion Gap 7.3, BUN 12 D, Creatinine 0.40 L, Estimated Creat Clear 92, Estimated GFR 217, Est GFR ( Amer) 263 D, Glucose 84, Calcium 8.3 L Medical History: Reports:: BPH, Diabetes Mellitus Type 2, Gastroesophageal Reflux Disease(GERD), Hyperlipidemia, Hypertension, Seizures Assessment and Plan (1) Acute respiratory failure with hypoxia Status: Acute Category: Medical Code(s): J96.01 - Acute respiratory failure with hypoxia (2) PNA (pneumonia) Status: Acute Qualifiers: Pneumonia type: due to unspecified organism Laterality: bilateral Lung location: lower lobe of lung Qualified Code(s): J18.9 - Pneumonia, unspecified organism Category: Medical Code(s): J18.9 - Pneumonia, unspecified organism (3) Sepsis Status: Acute Qualifiers: Sepsis type: sepsis due to unspecified organism Sepsis acute organ dysfunction status: with acute organ dysfunction Severe sepsis acute organ dysfunction type: acute respiratory failure Acute respiratory failure type: with hypoxia Severe sepsis shock status: without septic shock Qualified Code(s): A41.9 - Sepsis, unspecified organism; R65.20 - Severe sepsis without septic shock; J96.01 - Acute respiratory failure with hypoxia Category: Medical Code(s): A41.9 - Sepsis, unspecified organism (4) Leukocytosis Status: Acute Qualifiers: Leukocytosis type: other Qualified Code(s): D72.828 - Other elevated white blood cell count Category: Medical Code(s): D72.829 - Elevated white blood cell count, unspecified (5) Sacral decubitus ulcer, stage II Status: Acute Category: Medical Code(s): L89.152 -
--- NOTE | 2021-04-16 09:18 | HMH.DCSUM ---
General - General Admission date:: 04/12/21 Discharge date: 04/16/21 HPI HPI: Patient is a 65-year-old white male, intermediate resident. The intermediate staff had called the office earlier today late symptoms of labored breathing cough and clinical suggestions of pneumonia. Was taken to the emergency room for further evaluation. Imaging revealed patchy lower lobe infiltrations. Patient's saturations were marginal spite supplemental O2. Was tachypneic, and met criteria for sepsis. He is admitted for further evaluation and treatment. Shortly after arriving to the floor patient's oxygen requirements increased he became hypotensive. Vapotherm at 50%, 30 L was initiated as well as Levophed, concurrent with a fluid bolus. Placed on a regimen of cefepime and vancomycin, cultures were obtained. Hospital Course Hospital Course: Patient is a 65-year-old white male, intermediate resident. The intermediate staff had called the office earlier today late symptoms of labored breathing cough and clinical suggestions of pneumonia. Was taken to the emergency room for further evaluation. Imaging revealed patchy lower lobe infiltrations. Patient's saturations were marginal spite supplemental O2. Was tachypneic, and met criteria for sepsis. He is admitted for further evaluation and treatment. Shortly after arriving to the floor patient's oxygen requirements increased he became hypotensive. Vapotherm at 50%, 30 L was initiated as well as Levophed, concurrent with a fluid bolus. Placed on a regimen of cefepime and vancomycin, cultures were obtained. 04/12/21 ECHO: Conclusion 1. Technically difficult study because of the patient factors and poor acoustic windows 2. Mildly enlarged left atrium, normal left ventricular size, mild concentric left ventricular hypertrophy, visually estimated ejection fraction 55% with no regional wall motion abnormality, grade 1 diastolic dysfunction without tissue Doppler evidence of raise left atrial pressure. 3. Mild mitral and tricuspid regurgitation. 4. No significant pericardial effusion noted. Electronically signed by : Eric Marsh, 04/16/21 CXR: IMPRESSION: 1. Minimal streaky consolidation in the mid right lung may represent atelectasis or pneumonia. 2. No other acute changes in the chest. Electronically signed by Demario Pina MD Sputum cultures preliminary are showing gram-negative cocci, he has been on cefepime and vancomycin IV Blood cultures negative at 48 hours Pulmonary has seen and recommends: Plan: -De-escalate antibiotics to Augmentin to complete total of 10-day course. -DuoNebs every 6 hours as needed. -Speech evaluation and aspiration precautions. Thank you for involving pulmonary in this patient care. Will continue to follow. Follow in the clinic 4 weeks with a repeat chest x-ray. After admission patient became hypotensive and requiring Levophed to maintain blood pressure with MAP greater than 60, he was weaned off of these, blood pressure currently 110s over 60s he also required Vapotherm and was gradually weaned down to 4 L currently he is on room air and saturation is 97%. Speech therapy was consulted for possible aspiration modified barium swallow was performed and diet was changed to mechanical soft with thin liquids. Patient has been tolerating these without any difficulty 65-year-old male patient sitting up in bed resting quietly with eyes open, he denies any respiratory distress or chest pain during the night. Discussed discharge back to [facility], patient is agreement with this. PLAN: 1. We will discharge back to [facility] 2. Augmentin p.o. twice daily x10 days 3. Mechanical soft diet thin liquids 4. Follow-up with PCP in 1 week 5. Follow-up with pulmonary in 4 weeks with chest x-ray Objective Vital signs: Temp Pulse Resp BP Pulse Ox 97.7 F
--- NOTE | 2021-04-16 10:08 | SW/DCPLANNER ---
Addendum entered by Negin Beck 04/16/21 11:15: COVID is negative: all patient information has been faxed to [facility]. Patient will discharge back today. Original Note: The plan is for this patient to discharge back to [facility] today. Ping with [facility] has stated that patient will need another COVID swab prior to returning. COVID swab has been ordered and will be faxed to [facility] once resulted.
[2021-04-16 10:13] LABS: Coronavirus 19, PCR Not Detected (NotDetected); Influenza A, PCR Not Detected (NotDetected); Influenza B, PCR Not Detected (NotDetected)
--- NOTE | 2021-04-16 10:15 | HMH.PULMPN ---
Internal Medicine - PN: Subj *Date: 04/16/21 *Time: 10:16 Interval history: No acute respiratory events overnight. Patient continued to remain on room air. Exam - Constitutional Constitutional:: Present: no acute distress, comfortable - HENMT Exam HENMT: Present: normocephalic, moist mucous membranes - Eye Exam Eyes:: Present: normal appearance both eyes and related structures - Neck Exam Neck:: Present: normal visual inspection - Respiratory Exam Respiratory:: Present: able to speak in complete sentences, lungs clear, no respiratory distress, normal respiratory effort. Absent: accessory muscle use - Cardiovascular Exam Cardiac:: Present: S1, S2 - GI Exam GI:: Present: soft - Skin Exam Skin: Present: warm, no rash, dry - Neurological Exam Neurological: Present: alert, awake - Extremities Exam Extremities: Present: no cyanosis, no clubbing Assessment and Plan (1) Acute respiratory failure with hypoxia Status: Acute Category: Medical Code(s): J96.01 - Acute respiratory failure with hypoxia (2) PNA (pneumonia) Status: Acute Qualifiers: Pneumonia type: due to unspecified organism Laterality: bilateral Lung location: lower lobe of lung Qualified Code(s): J18.9 - Pneumonia, unspecified organism Category: Medical Code(s): J18.9 - Pneumonia, unspecified organism (3) Sepsis Status: Acute Qualifiers: Sepsis type: sepsis due to unspecified organism Sepsis acute organ dysfunction status: with acute organ dysfunction Severe sepsis acute organ dysfunction type: acute respiratory failure Acute respiratory failure type: with hypoxia Severe sepsis shock status: without septic shock Qualified Code(s): A41.9 - Sepsis, unspecified organism; R65.20 - Severe sepsis without septic shock; J96.01 - Acute respiratory failure with hypoxia Category: Medical Code(s): A41.9 - Sepsis, unspecified organism (4) Leukocytosis Status: Acute Qualifiers: Leukocytosis type: other Qualified Code(s): D72.828 - Other elevated white blood cell count Category: Medical Code(s): D72.829 - Elevated white blood cell count, unspecified (5) Sacral decubitus ulcer, stage II Status: Acute Category: Medical Code(s): L89.152 - Pressure ulcer of sacral region, stage 2 (6) Hypotension Status: Acute Category: Medical Code(s): I95.9 - Hypotension, unspecified (7) 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 Patient was also found to be hypotensive on admission improved with 2 L normal saline bolus. Patient needing high flow oxygen department presentation. Patient was given concern for MDR patient was initiated on vancomycin and cefepime. Patient condition significantly improved, he was weaned to room to RA with saturations maintaining 95%. Patient hemodynamics improved. Echocardiogram also performed and did not show any significant cardiac dysfunction. Cultures no growth at 48 hours. Sputum appears to be a poor sample, showing mixed respiratory raquel. Interval update: Patient denies any new respiratory complaints. Chest clear to auscultate. Remained on room air since yesterday. Continue Augmentin to complete a total of 10-day course and follow the patient in the clinic with a repeat chest x-ray. Plan: -Augmentin to complete total of 10-day course. -DuoNebs every 6 hours as needed. -Speech evaluation and aspiration precautions. Thank you for involving pulmonary in this patient care. Will continue to follow. Follow in the clinic 4 weeks with a
[2021-04-16 11:24] LABS: POC Glucose,Bedside 113 (70-110)
== END 2021-04-16 12:45 | DRG 871 ==
LOC: ER 09:40 → 2ND 10:42 → ICU 14:37 → 2ND 04-15 02:51
PROVIDERS: Nurse Practitioner Family; Admitting Provider Family Medicine; Emergency Provider Family Medicine; PCP Emergency Medicine; Visit Provider Family Medicine
DX: A41.9 Sepsis, unspecified organism (principal); J96.01 Acute respiratory failure with hypoxia; J18.9 Pneumonia, unspecified organism; I69.354 Hemiplegia and hemiparesis following cerebral infarction affecting left non-dominant side; R65.20 Severe sepsis without septic shock; Z20.822 Contact with and (suspected) exposure to COVID-19; L89.152 Pressure ulcer of sacral region, stage 2; E11.9 Type 2 diabetes mellitus without complications; E78.5 Hyperlipidemia, unspecified; I10 Essential (primary) hypertension; F81.9 Developmental disorder of scholastic skills, unspecified; K21.9 Gastro-esophageal reflux disease without esophagitis; Z79.84 Long term (current) use of oral hypoglycemic drugs; N40.0 Benign prostatic hyperplasia without lower urinary tract symptoms
CPT/HCPCS: 36415; 70371; 71045; 80048; 80053; 80202; 82803; 82962; 83605; 83880; 84484; 85025; 87040; 87070; 87077; 87186; 87205; 92611; 93005; 93306; 94640; 94760; 96365; 96366; 96367; 96372; 99285; J2405; J3370; U0003

== ENCOUNTER 2021-05-23 17:49 | Emergency (ER) | payer MEDICARE, MEDICAID, SELFPAY ==
[2021-05-23 17:50] VITALS: BP 127/69; PULSE 92; RESP 20; TEMP 36.7; O2SAT 97; BMI 28.1
--- NOTE | 2021-05-23 17:58 | HMH.EDGENADL ---
ED Disposition Clinical Impression: Sacral decubitus ulcer Qualifiers: Pressure injury stage: stage 4 Qualified Code(s): L89.154 - Pressure ulcer of sacral region, stage 4 Disposition: Xfer SNF Condition on Discharge: Fair Instructions: DI for Pressure Injuries, How to Pack a Wound Additional Instructions: Patient has been evaluated for sacral decubitus ulcer. He will need outpatient wound care. Please follow-up with his primary care doctor and the wound clinic. Give antibiotics as prescribed. Return for any new or worsening symptoms, fevers or other concerns. Prescriptions: Sulfamethoxazole/Trimethoprim [Bactrim DS tablet] 1 each PO BID #14 tab Transmission Status: Pending to [facility] Time of Disposition: 20:43 - Critical Care Critical Care Time: No Attestation: On , the high probability of a clinically significant, sudden or life threatening deterioration of the following system(s) required my full and direct attention, intervention and personal management. The time I documented below is in addition to time spent performing reported procedures but includes the following listed in this critical care notation. Medical Decision Making - Medical Records Medical records reviewed: Yes: I reviewed the patient's medical records. - Mikey Inquiry Pt receiving controlled substance: No Vital Signs: 05/23/21 17:50 Temperature 98.1 F Temperature Source Oral Pulse Rate [Left Radial] 92 H Respiratory Rate 20 Blood Pressure [Right Arm] 127/69 Blood Pressure Mean [Right Arm] 88 Blood Pressure Source [Right Arm] Automatic Cuff Blood Pressure Position [Right Arm] Sitting 02 Sat by Pulse Oximetry 97 Oxygen Delivery Method Room Air - Lab Data Lab Results 05/23/21 18:40: WBC 8.9, RBC 3.83 L, Hgb 11.7 L, Hct 36.7 L, MCV 95.7 H, MCH 30.6, MCHC 32.0, RDW 14.5, Plt Count 320, MPV 8.6, Neut % (Auto) 70.2, Lymph % (Auto) 19.0, [place] % (Auto) 9.6 H, Eos % (Auto) 0.7, Baso % (Auto) 0.5, Neut # (Auto) 6.2, Lymph # (Auto) 1.7, [place] # (Auto) 0.9, Eos # (Auto) 0.1, Baso # (Auto) 0.0 05/23/21 18:40: Sodium 137, Potassium 4.6, Chloride 98, Carbon Dioxide 30, Anion Gap 13.6, BUN 9, Creatinine 0.40 L, Estimated Creat Clear 90, Estimated GFR 217, Est GFR ( Amer) 263, Glucose 140 H, Calcium 9.0, Total Bilirubin 0.4, AST 19, ALT 11 L, Alkaline Phosphatase 75, C-Reactive Protein 65.4 H, Total Protein 6.4 D, Albumin 3.0 L, Globulin 3.4 H, Albumin/Globulin Ratio 0.9 L, Procalcitonin 0.387 05/23/21 18:40: Lactate 1.2 Result diagrams: 05/23/21 18:40 05/23/21 18:40 Orders (Tests/Meds): ORDERS Category Date Time Status Blood Culture Stat Micro 05/23/21 17:57 Received Medical Decision Narrative: In summary this is a 65-year-old male with history of chronic debility presenting to the emergency department with a sacral wound. Patient clinically stable on arrival. Vital signs within normal limits. Wound is well-appearing. May benefit from debridement. Concern for worsening infection. Will obtain CBC, CMP, procalcitonin, lactic acid, blood cultures. Laboratory results are reassuring. No leukocytosis. No renal insufficiency. No abnormalities of glucose or electrolytes. Patient is afebrile, doubt sepsis. Blood cultures obtained. Plan to discharge home with prescription for Bactrim. Will need outpatient wound care. Stable for discharge. General Adult HPI - General Chief complaint: Wound/Laceration Stated complaint: wound Time Seen by Provider: 05/23/21 17:58 Mode of Arrival: EMS Limitations: No Limitations Description of Symptoms (Recalled from ER Triage Doc. by RN): nursing staff concerned with pt coccyx wound is starting to tunneling, wound has foul odor. pt has not been acting his norm. - History of Present Illness HPI narrative: 65-year-old male, bedbound, presenting to the emergency department with a wound to his sacrum. Over the last few days nursing staff has noticed that it is increasing in siz
[2021-05-23 19:06] LABS: Basophils % 0.5 % (0.1-2.0); Eosinophils # 0.1 K/mm3 (0.0-0.4); Eosinophils % 0.7 % (0.1-12.0); Hematocrit 36.7 % (42.0-52.0); Hemoglobin 11.7 g/dL (14.1-18.0); Lymphocytes # 1.7 K/mm3 (0.7-4.5); Mean Corpuscular Hemoglobin 30.6 pg (27.0-31.2); Mean Corpuscular Volume 95.7 fl (80-94); Mean Platelet Volume 8.6 fl (7.4-10.4); Monocytes # 0.9 K/mm3 (0.1-1.0); Monocytes % 9.6 % (1.7-9.3); Neutrophils # 6.2 K/mm3 (1.8-7.8); Neutrophils % 70.2 % (37.0-80.0); Platelet Count 320 K/mm3 (142-424); Red Blood Count 3.83 M/mm3 (4.60-6.20); Red Cell Distribution Width 14.5 % (11.5-17.5); White Blood Count 8.9 K/mm3 (4.8-10.8)
[2021-05-23 19:19] LABS: Lactic Acid 1.2 mmol/L (0.7-2.1)
[2021-05-23 19:24] LABS: Alanine Aminotransferase 11 U/L (12-78); Albumin/Globulin Ratio 0.9 (1.1-1.8); Alkaline Phosphatase 75 U/L (38-126); Anion Gap 13.6 mEq/L (5-15); Aspartate Amino Transferase 19 U/L (17-59); Bilirubin,Total 0.4 mg/dl (0.2-1.3); Blood Urea Nitrogen 9 mg/dl (9-20); Carbon Dioxide 30 mmol/L (22.0-30.0); Chloride 98 mmol/L (98-107); Creatinine Clearance Estimated 90 mL/min (50-200); Estimated Glomerular Filt Rate 217 ml/min (>60); GFR (African American) 263 ML/MIN (>60); Globulin 3.4 g/dL (1.3-3.2); Glucose 140 mg/dl (74-100); Potassium 4.6 mmoL/L (3.5-5.1); Sodium 137 mmol/L (136-145); Total Protein,Serum 6.4 g/dl (6.3-8.2)
[2021-05-23 19:29] LABS: C-Reactive Protein 65.4 mg/L (0-4)
[2021-05-23 19:43] LABS: Procalcitonin 0.387 ng/mL (0.0-2.0)
[2021-05-23 22:22] VITALS: BP 135/77; PULSE 98; RESP 20; TEMP 36.7; O2SAT 97
== END 2021-05-23 22:24 ==
PROVIDERS: Emergency Provider Emergency Medicine
DX: L89.154 Pressure ulcer of sacral region, stage 4 (principal); K21.9 Gastro-esophageal reflux disease without esophagitis; G40.909 Epilepsy, unspecified, not intractable, without status epilepticus; Z79.899 Other long term (current) drug therapy
CPT/HCPCS: 80053; 83605; 84145; 85025; 86140; 87040; 87077; 87186; 99283

== ENCOUNTER → 2021-06-22 00:56 | Outpatient (CLI) | payer MEDICARE, MEDICAID, SELFPAY ==
[2021-06-22 01:28] LABS: Basophils % 0.1 % (0.1-2.0); Eosinophils % 0.2 % (0.1-12.0); Hematocrit 36.4 % (42.0-52.0); Hemoglobin 11.4 g/dL (14.1-18.0); Lymphocytes # 0.8 K/mm3 (0.7-4.5); Lymphocytes % 6.6 % (10-50); Mean Corpuscular HGB Conc 31.3 g/dL (31.8-35.4); Mean Corpuscular Hemoglobin 30.5 pg (27.0-31.2); Mean Corpuscular Volume 97.5 fl (80-94); Mean Platelet Volume 8.4 fl (7.4-10.4); Monocytes # 0.9 K/mm3 (0.1-1.0); Monocytes % 7.3 % (1.7-9.3); Neutrophils # 10.5 K/mm3 (1.8-7.8); Neutrophils % 85.8 % (37.0-80.0); Platelet Count 233 K/mm3 (142-424); Red Blood Count 3.73 M/mm3 (4.60-6.20); Red Cell Distribution Width 15.3 % (11.5-17.5); White Blood Count 12.2 K/mm3 (4.8-10.8)
[2021-06-22 01:29] LABS: MANUAL DIFFERENTIAL MANUAL DIFFERENTIAL (MANUAL DIFF)
[2021-06-22 01:40] LABS: Hypochromasia 1+; Lymphocytes % 8 % (10-50); Monocytes % 1 % (2-9); Neutrophils % 80 % (42-76); Platelet Estimate Normal; Total Cells Counted 100
== END ==
PROVIDERS: Visit Provider Emergency Medicine
DX: R06.2 Wheezing (principal); R06.89 Other abnormalities of breathing
CPT/HCPCS: 85007; 85025

== ENCOUNTER 2021-07-02 14:00 | Observation (INO) | payer MEDICARE, MEDICAID, SELFPAY ==
[2021-07-02] VITALS (9 sets, daily range): BP systolic 109–138; BP diastolic 69–87; PULSE 85–103; RESP 14–20; TEMP 36.6–36.9; O2SAT 98–100; BMI 27.2; BMI 22.2
--- NOTE | 2021-07-02 14:14 | XR_ITS ---
PROCEDURE: XR CHEST PORTABLE CLINICAL HISTORY: reported crackles in bilateral bases COMPARISON: CR XR CHEST PORTABLE from 04/12/2021 CR XR CHEST PORTABLE from 04/15/2021 CR XR CHEST PORTABLE from 04/16/2021 FINDINGS: The cardiomediastinal silhouette and pulmonary vascularity are within normal limits. Increased density right lower lobe consistent with pneumonia. The fibrotic changes are present in the right midlung. No acute bony abnormalities. IMPRESSION: Right lower lobe pneumonia Dictated by: Josias Thacker MD 07/02/2021 15:35 Josias Thacker MD in [facility] 07/02/2021 15:35
--- NOTE | 2021-07-02 14:16 | PC.NURSE ---
Notified Rad of portable CXR
--- NOTE | 2021-07-02 14:33 | ECG_ITS ---
APPROVED REPORT Exam: Resting ECG HR:100 bpm ECG Measurements Heart Rate 100 AXES SD 122 P 54 QRSd 82 QRS 21 QT 328 T 53 QTc 423 Conclusion Normal sinus rhythm Normal ECG Electronically signed by : Flaquito Stewart MD 07/03/2021 17:28:11
--- NOTE | 2021-07-02 14:36 | PC.NURSE ---
Rad at bedside
--- NOTE | 2021-07-02 14:49 | HMH.EDGENADL ---
ED Disposition Clinical Impression: Pneumonia Qualifiers: Pneumonia type: due to unspecified organism Laterality: right Lung location: lower lobe of lung Qualified Code(s): J18.9 - Pneumonia, unspecified organism Disposition: Admitted as Observation Condition on Discharge: Fair Referrals: Provider,Referral, [Primary Care Provider] - - Critical Care Critical Care Time: No Attestation: On 07/02/21, the high probability of a clinically significant, sudden or life threatening deterioration of the following system(s) required my full and direct attention, intervention and personal management. The time I documented below is in addition to time spent performing reported procedures but includes the following listed in this critical care notation. Medical Decision Making - Mikey Inquiry Pt receiving controlled substance: No Vital Signs: 07/02/21 14:00 07/02/21 14:30 07/02/21 15:00 Temperature 98.1 F Temperature Source Oral Pulse Rate 100 H 98 H Pulse Rate [Right Radial] 97 H Respiratory Rate 14 16 16 Blood Pressure 126/81 120/78 Blood Pressure [Right Arm] 120/75 Blood Pressure Mean [Right Arm] 90 Blood Pressure Source Automatic Cuff Automatic Cuff Blood Pressure Source [Right Arm] Automatic Cuff Blood Pressure Position Sitting Sitting Blood Pressure Position [Right Arm] Sitting 02 Sat by Pulse Oximetry 98 99 98 Oxygen Delivery Method Nasal Cannula Room Air Room Air Oxygen Flow Rate (LPM) 3 07/02/21 15:30 Temperature Temperature Source Pulse Rate 98 H Pulse Rate [Right Radial] Respiratory Rate 16 Blood Pressure 136/87 Blood Pressure [Right Arm] Blood Pressure Mean [Right Arm] Blood Pressure Source Automatic Cuff Blood Pressure Source [Right Arm] Blood Pressure Position Sitting Blood Pressure Position [Right Arm] 02 Sat by Pulse Oximetry 100 Oxygen Delivery Method Room Air Oxygen Flow Rate (LPM) - Lab Data Lab Results 07/02/21 14:45: WBC 8.4, RBC 3.85 L, Hgb 11.9 L, Hct 38.0 L, MCV 98.9 H, MCH 31.0, MCHC 31.3 L, RDW 14.9, Plt Count 294, MPV 7.4, Neut % (Auto) 71.5, Lymph % (Auto) 20.5, [place] % (Auto) 5.1, Eos % (Auto) 2.4, Baso % (Auto) 0.6, Neut # (Auto) 6.0, Lymph # (Auto) 1.7, [place] # (Auto) 0.4, Eos # (Auto) 0.2, Baso # (Auto) 0.1 07/02/21 14:45: Sodium 139, Potassium 4.5, Chloride 98, Carbon Dioxide 33 H, Anion Gap 12.5, BUN 11, Creatinine 0.40 L, Estimated Creat Clear 91, Estimated GFR 217, Est GFR ( Amer) 262, Glucose 54 L, Calcium 9.2, Total Bilirubin 0.2, AST 19, ALT 8 L, Alkaline Phosphatase 84, Troponin I < 0.01, Total Protein 6.1 L, Albumin 2.8 L, Globulin 3.3 H, Albumin/Globulin Ratio 0.8 L 07/02/21 15:27: Lactate 1.2 Result diagrams: 07/02/21 14:45 07/02/21 14:45 Orders (Tests/Meds): ED MEDICATIONS Discontinued Medications Generic Name Dose Route Start Last Admin Trade Name Freq PRN Reason Stop Dose Admin Dextrose 50 ml 07/02/21 15:29 07/02/21 15:44 Dextrose 50% 50ml Syringe (Crash Cart) IVP 07/02/21 15:30 50 ml ONCE ONE Administration ORDERS Category Date Time Status BNP [Brain Natriuretic Peptide] Stat Lab 07/02/21 14:45 Received Rapid PCR Covid and Flu A/B Stat Lab 07/02/21 15:01 Ordered Troponin I Q3H Lab 07/02/21 17:15 Ordered Troponin I Q3H Lab 07/02/21 20:15 Ordered Blood Culture Stat Micro 07/02/21 15:27 Received - Radiology Data #1 Image(s): Chest Image Reviewed: Yes I reviewed the patient's radiology image, Yes I have reviewed radiologist's interpretation PROCEDURE: XR CHEST PORTABLE CLINICAL HISTORY: reported crackles in bilateral bases COMPARISON: CR XR CHEST PORTABLE from 04/12/2021 CR XR CHEST PORTABLE from 04/15/2021 CR XR CHEST PORTABLE from 04/16/2021 FINDINGS: The cardiomediastinal silhouette and pulmonary vascularity are within normal limits. Increased density right lower lobe consistent with pneumonia. The fibrotic changes are present in the right midlung. N
[2021-07-02 15:08] LABS: Chloride 98 mmol/L (98-107)
[2021-07-02 15:09] LABS: Potassium 4.5 mmoL/L (3.5-5.1); Sodium 139 mmol/L (136-145)
[2021-07-02 15:11] LABS: Alanine Aminotransferase 8 U/L (12-78); Aspartate Amino Transferase 19 U/L (17-59); Blood Urea Nitrogen 11 mg/dl (9-20); Creatinine Clearance Estimated 91 mL/min (50-200); Estimated Glomerular Filt Rate 217 ml/min (>60); GFR (African American) 262 ML/MIN (>60)
[2021-07-02 15:12] LABS: Albumin Level 2.8 g/dl (3.5-5.0); Albumin/Globulin Ratio 0.8 (1.1-1.8); Alkaline Phosphatase 84 U/L (38-126); Anion Gap 12.5 mEq/L (5-15); Bilirubin,Total 0.2 mg/dl (0.2-1.3); Calcium 9.2 mg/dl (8.4-10.2); Carbon Dioxide 33 mmol/L (22.0-30.0); Globulin 3.3 g/dL (1.3-3.2); Glucose 54 mg/dl (74-100); Total Protein,Serum 6.1 g/dl (6.3-8.2)
[2021-07-02 15:25] LABS: Troponin I < 0.01 ng/ml (0.00-0.034)
[2021-07-02 15:47] LABS: Basophils # 0.1 K/mm3 (0-0.2); Basophils % 0.6 % (0.1-2.0); Eosinophils # 0.2 K/mm3 (0.0-0.4); Eosinophils % 2.4 % (0.1-12.0); Hemoglobin 11.9 g/dL (14.1-18.0); Lymphocytes # 1.7 K/mm3 (0.7-4.5); Lymphocytes % 20.5 % (10-50); Mean Corpuscular HGB Conc 31.3 g/dL (31.8-35.4); Mean Corpuscular Volume 98.9 fl (80-94); Mean Platelet Volume 7.4 fl (7.4-10.4); Monocytes # 0.4 K/mm3 (0.1-1.0); Monocytes % 5.1 % (1.7-9.3); Neutrophils % 71.5 % (37.0-80.0); Platelet Count 294 K/mm3 (142-424); Red Blood Count 3.85 M/mm3 (4.60-6.20); Red Cell Distribution Width 14.9 % (11.5-17.5); White Blood Count 8.4 K/mm3 (4.8-10.8)
[2021-07-02 15:48] LABS: Lactic Acid 1.2 mmol/L (0.7-2.1)
--- NOTE | 2021-07-02 15:59 | PC.NURSE ---
speaking with Dr. Dixon
--- NOTE | 2021-07-02 16:06 | PC.NURSE ---
notified house of admission
[2021-07-02 16:14] LABS: Coronavirus 19, PCR Not Detected (NotDetected); Influenza A, PCR Not Detected (NotDetected); Influenza B, PCR Not Detected (NotDetected)
--- NOTE | 2021-07-02 16:35 | PC.NURSE ---
[id number] bed assignment request, 203 all staff notified
--- NOTE | 2021-07-02 17:44 | PC.NURSE ---
FINGER STICK IS 84
[2021-07-02 18:01] LABS: POC Glucose,Bedside 84 (70-110)
[2021-07-02 21:00] LABS: POC Glucose,Bedside 63 (70-110)
--- NOTE | 2021-07-02 21:00 | PC.NURSE ---
spoke with MD Destiny woodall about pt's fsbs of 63, instructed to recheck in one hour, will do so and continue to monitor
[2021-07-02 22:16] LABS: POC Glucose,Bedside 59 (70-110)
[2021-07-02 23:45] LABS: POC Glucose,Bedside 69 (70-110)
[2021-07-03] VITALS (7 sets, daily range): BP systolic 98–128; BP diastolic 63–75; PULSE 89–106; RESP 16–18; TEMP 36.7–37.2; O2SAT 96–100; BMI 22.1
[2021-07-03 05:14] LABS: POC Glucose,Bedside 75 (70-110)
--- NOTE | 2021-07-03 07:16 | HMH.PHAVTE ---
[facility] Pharmacy VTE Monitoring - Patient Demographics Admission date: 07/02/21 Report Date: 07/03/21 Time: 07:16 Allergies/Adverse Reactions: Patient Allergies No Known Allergies Allergy (Verified 05/23/21 21:28) Height: 1.78 m Weight: 70.32 kg Patient Problems: Current Active Problems PNA (pneumonia) (Acute) - VTE Risk Labs: VTE Related Lab Results Hgb 11.9 g/dL (14.1-18.0) L 07/02/21 14:45 Hct 38.0 % (42.0-52.0) L 07/02/21 14:45 Plt Count 294 K/mm3 (142-424) 07/02/21 14:45 BUN 11 mg/dl (9-20) 07/02/21 14:45 Creatinine 0.40 mg/dl (0.66-1.25) L 07/02/21 14:45 Estimated Creat Clear 91 mL/min (50-200) 07/02/21 14:45 Was VTE Risk Assessment Performed: Yes VTE Score: 6 VTE Risk Level: Moderate Risk - Prophylaxis VTE Prophylaxis Ordered?: Yes Types of VTE Prophylaxis: TEDS Knee High Location of Applied Device: Bilateral Lower Extremeties
--- NOTE | 2021-07-03 08:02 | SW/DCPLANNER ---
Addendum entered by Negin Beck 07/04/21 09:58: I have informed Ping with [facility] the plan is for this patient to return today. COVID swab has been collected: negative and faxed to [facility]. Original Note: This patient currently resides at [facility]. I spoke with Ping and patient is [facility] level of care. I will continue to follow up with Ping until patient is medically stable for discharge. Discharge date is unknown at this time.
[2021-07-03 08:46] LABS: NT Pro Brain Natriuretic Pep. 126 pg/mL (0-125)
--- NOTE | 2021-07-03 09:24 | HMH.PHAINT ---
MEDICATION RECONCILIATION COMPLETE USING [facility]
--- NOTE | 2021-07-03 11:19 | HMH.HP ---
*Admission Date: 07/02/21 *Chief complaint: hypotension *History of present illness: 66 yr old male presented to ed via ambulance from [facility]. Staff reported to have had a low blood pressure and crackles in the bases of his lungs today. Patient is a poor historian as he is only oriented to person with previous stroke and has a left hemiparesis. Patient is on oxygen 2 L nasal cannula at . Patient finished Levaquin on 06/27/2021. Patient also has a unstable ulcer to coccyx. Admitted for rt lower lobe pneumonia. [facility] History I have reviewed the patient's past medical history: Yes Medical History: Reports:: BPH, Cerebrovascular Accident, Diabetes Mellitus Type 2, Gastroesophageal Reflux Disease(GERD), Hyperlipidemia, Hypertension, Seizures *Have you ever received a pneumonia vaccine?: Yes *Have you received a flu vaccine this season?: Yes Laterality Cases: Bilateral: Tonsillectomy - *Social History Smoking Status: Unknown if ever smoked Alcohol Intake: never *Occupational Status:: disabled Housing: alf *Travel in the last 8 weeks: None Family Hx:: Unable to obtain Review of Systems - Review of Systems Review of systems:: unable to obtain Meds Home Medications Medication Instructions Recorded Confirmed Type Ondansetron [Zofran 4mg ODT] 4 mg PO TIDP PRN #12 tab 08/10/20 07/02/21 Rx risperiDONE [Risperidone] 1 mg PO HS 08/12/20 07/02/21 History Benztropine Mesylate [Cogentin 1mg 1 mg PO DAILY 04/12/21 07/02/21 History tablet] Celecoxib [Celebrex 200mg cap] 200 mg PO BID 04/12/21 07/02/21 History Docusate Sodium [Colace] 100 mg PO BID 04/12/21 07/02/21 History Linagliptin [Tradjenta 5mg tablet] 5 mg PO DAILY 04/12/21 07/02/21 History Loperamide HCl [Imodium 2 mg 2 mg PO DAILY 04/12/21 07/02/21 History capsule] Metformin HCl [Glucophage 500mg 500 mg PO BID 04/12/21 07/02/21 History Tablet] glipiZIDE [Glucotrol 5mg tablet] 5 mg PO BID 04/12/21 07/02/21 History lisinopriL [Zestril 10mg Tab] 10 mg PO DAILY 04/12/21 07/02/21 History Omeprazole [Omeprazole 20mg 20 mg PO DAILY 07/02/21 07/02/21 History Capsule] Sertraline HCl [Zoloft 100mg 100 mg PO DAILY 07/02/21 07/02/21 History tablet] Divalproex Sodium [Depakote] 750 mg PO BID 07/03/21 07/03/21 History Allergies Allergy/AdvReac Type Severity Reaction Status Date / Time No Known Allergies Allergy Verified 05/23/21 21:28 Exam Vital signs and Labs for Last 24 Hours: Temp Pulse Resp BP Pulse Ox 98.6 F 101 H 16 101/63 L 97 07/03/21 08:00 07/03/21 08:00 07/03/21 08:00 07/03/21 08:00 07/03/21 08:00 Laboratory Results - last 24 hr 07/02/21 14:45: WBC 8.4, RBC 3.85 L, Hgb 11.9 L, Hct 38.0 L, MCV 98.9 H, MCH 31.0, MCHC 31.3 L, RDW 14.9, Plt Count 294, MPV 7.4, Neut % (Auto) 71.5, Lymph % (Auto) 20.5, [place] % (Auto) 5.1, Eos % (Auto) 2.4, Baso % (Auto) 0.6, Neut # (Auto) 6.0, Lymph # (Auto) 1.7, [place] # (Auto) 0.4, Eos # (Auto) 0.2, Baso # (Auto) 0.1 07/02/21 14:45: Sodium 139, Potassium 4.5, Chloride 98, Carbon Dioxide 33 H, Anion Gap 12.5, BUN 11, Creatinine 0.40 L, Estimated Creat Clear 91, Estimated GFR 217, Est GFR ( Amer) 262, Glucose 54 L, Calcium 9.2, Total Bilirubin 0.2, AST 19, ALT 8 L, Alkaline Phosphatase 84, Troponin I < 0.01, Total Protein 6.1 L, Albumin 2.8 L, Globulin 3.3 H, Albumin/Globulin Ratio 0.8 L 07/02/21 14:45: NT-Pro-B Natriuret Pep 126 H 07/02/21 15:27: Lactate 1.2 07/02/21 16:02: SARS-CoV-2 (PCR) Not detected, Influenza A Untype (PCR) Not detected, Influenza Type B (PCR) Not detected 07/02/21 17:43: POC Glucose 84 07/02/21 20:49: POC Glucose 63 L 07/02/21 22:09: POC Glucose 59 L 07/02/21 23:38: POC Glucose 69 L 07/03/21 05:07: POC Glucose 75 I & O for Last 24 hours: Intake & Output 06/30/21 07/01/21 07/02/21 07/03/21 11:59 11:59 11:59 11:59 Intake Total 489 / 489 Output Total 0 / 0 Balance 489 / 489 Weight 155 lb 0.465 oz - Consti
[2021-07-03 11:23] LABS: POC Glucose,Bedside 85 (70-110)
--- NOTE | 2021-07-03 14:37 | HMH.PTWOUND ---
Rehab Inpt Wound Evaluation Rehab IP Wound Evaluation Start: 07/03/21 11:19 Freq: ONCE Status: Active Protocol: Document 07/03/21 11:19 LEYDA (Rec: 07/03/21 14:37 [email or web address] [id number]) Rehab PT Wound Assessment Patient Status Premedicated Prior to Dressing Change No Subjective Subjective Pt reports he does not want to roll over for CWS to check wound Wound Medial Buttock Wound Type Pressure Ulcer Wound Staging Stage IV Query Text:Stage I - Unbroken, red skin, no blanching. Stage II - Skin broken, superficial skin loss involving epidermis alone or also dermis. Partial loss of skin layers. Stage III - Pressure area involves epidermis, dermis and subcutaneous tissue, full thickness skin loss. Stage IV - Pressure area involves epidermis, subcutaneous tissue, bone and other supportive tissue. Full thickness skin loss with extensive destruction of underlying tissue and structures. Wound Length (cm) 4.0 Wound Width (cm) 4.0 Wound Depth (cm) 2.0 Wound Bed Appearance Beefy Red,Dusky Red,[place] Percentage Granulated (%) 100 Percentage of Slough (%) 0 Wound Margins Description Roll Under Edges Wound Drainage Description Serous Drainage Amount Small Drainage Odor No Odor Wound Topical Solution/Irrigant Saline Irrigant Packing Type Woundvac Sponge Primary Dressing Film Dressing Wound Debridement Amount of Tissue None Removed Dressing Change Patient Tolerance Tolerated Poorly Plan/Recommendation Comment NSG to continue w/ wound vac application and change - wound care to continue to consult as needed. Eval Complexity Eval Charge Codes 36867 - Low Complexity G-codes PT Current Status Other PT/OT Status PT Current Status Modifier CN-At least 100% impaired, limited or restricted PT Goal Status Other PT/OT Status PT Goal Status Modifer CN-At least 100% impaired, limited or restricted PHYSICIAN CERTIFICATION: I certify the specified therapy services for Jamil Sahu are required, authorized, and reviewed every 30 days.
--- NOTE | 2021-07-03 16:31 | PC.NURSE ---
Sacral wound cleaned with sterile water. Wound vac dressing changed and window dressing applied to sacral wound. Barrier film placed first, then foam imbedded into site. Wound vac set to 125. No further orders at this time.
--- NOTE | 2021-07-03 16:41 | HMH.PULMCON ---
*Admission Date: 07/02/21 *Reason for consult:: Pneumonia. *History of present illness: Mr. Sahu is 66-year-old male no significant smoking history, resides at [facility] nursing was brought to the ED complaining of worsening respiratory distress, hypotensive episode and bilateral lower lobe crackles. [facility] History Medical History: Reports:: BPH, Cerebrovascular Accident, Diabetes Mellitus Type 2, Gastroesophageal Reflux Disease(GERD), Hyperlipidemia, Hypertension, Seizures *Have you ever received a pneumonia vaccine?: Yes *Have you received a flu vaccine this season?: Yes Laterality Cases: Bilateral: Tonsillectomy - *Social History Smoking Status: Unknown if ever smoked Alcohol Intake: never *Occupational Status:: disabled Housing: [facility] *Travel in the last 8 weeks: None Family Hx:: Unable to obtain ROS - Cons Reports fatigue, Reports fever(s) - Card Denies chest pain at rest - Resp Respiratory: Reports excessive phlegm production, Reports cough with sputum production - GI Gastrointestingal: Denies: abdominal pain Meds Home Medications Medication Instructions Recorded Confirmed Type Ondansetron [Zofran 4mg ODT] 4 mg PO TIDP PRN #12 tab 08/10/20 07/02/21 Rx risperiDONE [Risperidone] 1 mg PO HS 08/12/20 07/02/21 History Benztropine Mesylate [Cogentin 1mg 1 mg PO DAILY 04/12/21 07/02/21 History tablet] Celecoxib [Celebrex 200mg cap] 200 mg PO BID 04/12/21 07/02/21 History Docusate Sodium [Colace] 100 mg PO BID 04/12/21 07/02/21 History Linagliptin [Tradjenta 5mg tablet] 5 mg PO DAILY 04/12/21 07/02/21 History Loperamide HCl [Imodium 2 mg 2 mg PO DAILY 04/12/21 07/02/21 History capsule] Metformin HCl [Glucophage 500mg 500 mg PO BID 04/12/21 07/02/21 History Tablet] glipiZIDE [Glucotrol 5mg tablet] 5 mg PO BID 04/12/21 07/02/21 History lisinopriL [Zestril 10mg Tab] 10 mg PO DAILY 04/12/21 07/02/21 History Omeprazole [Omeprazole 20mg 20 mg PO DAILY 07/02/21 07/02/21 History Capsule] Sertraline HCl [Zoloft 100mg 100 mg PO DAILY 07/02/21 07/02/21 History tablet] Divalproex Sodium [Depakote] 750 mg PO BID 07/03/21 07/03/21 History Allergies Allergy/AdvReac Type Severity Reaction Status Date / Time No Known Allergies Allergy Verified 05/23/21 21:28 Exam - Constitutional Constitutional:: Present: no acute distress, comfortable - HENMT Exam HENMT: Present: normocephalic, atraumatic - Eye Exam Eyes:: Present: normal sclera - Neck Exam Neck:: Present: normal visual inspection - Respiratory Exam Respiratory:: Present: respiratory distress, rhonchi. Absent: able to speak in complete sentences - Cardiovascular Exam Cardiac:: Present: S1, S2 - GI Exam GI:: Present: soft - Skin Exam Skin: Present: warm, no rash - Neurological Exam Neurological: Present: awake - Extremities Exam Extremities: Present: no cyanosis, no clubbing, no edema Internal Medicine - CN: Reslt - Labs CBC & Chem 7: 07/02/21 14:45 07/02/21 14:45 Assessment and Plan (1) PNA (pneumonia) Status: Acute Qualifiers: Pneumonia type: due to unspecified organism Laterality: right Lung location: lower lobe of lung Qualified Code(s): J18.9 - Pneumonia, unspecified organism Category: Medical Code(s): J18.9 - Pneumonia, unspecified organism (2) Acute respiratory failure with hypoxia Status: Acute Category: Medical Code(s): J96.01 - Acute respiratory failure with hypoxia (3) Sacral decubitus ulcer Status: Acute Qualifiers: Pressure injury stage: stage 4 Qualified Code(s): L89.154 - Pressure ulcer of sacral region, stage 4 Category: Medical Code(s): L89.159 - Pressure ulcer of sacral region, unspecified stage (4) 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
[2021-07-03 16:44] LABS: POC Glucose,Bedside 68 (70-110)
--- NOTE | 2021-07-03 16:45 | CT_ITS ---
PROCEDURE INFORMATION: Exam: CTA Chest With Contrast Exam date and time: 07/03/2021 4:45 PM Age: 66 years old Clinical indication: Other: Hypoxic resp failure TECHNIQUE: Imaging protocol: Computed tomographic angiography of the chest with contrast. 3D rendering (Not supervised by radiologist): MIP and/or 3D reconstructed images were created by the technologist. Radiation optimization: All CT scans at this facility use at least one of these dose optimization techniques: automated exposure control; mA and/or kV adjustment per patient size (includes targeted exams where dose is matched to clinical indication); or iterative reconstruction. Contrast material: ISOVUE 370; Contrast volume: 70 ml; Contrast route: INTRAVENOUS (IV); COMPARISON: CR XR CHEST PORTABLE 07/02/2021 2:37 PM FINDINGS: Pulmonary arteries: The pulmonary trunk, main, and branch pulmonary arteries contain no filling defects. Aorta: There are atheromatous calcifications of the aorta. No aortic aneurysm. No aortic dissection. Lungs: Patchy parenchymal infiltrate at the right lung base. There are chronic parenchymal changes within both lung davila. Areas of linear scarring or atelectasis are identified at the lung bases. No masses. Pleural spaces: Small bibasilar pleural effusions. No pneumothorax. Heart: No cardiomegaly. No pericardial effusion. Heart RV/LV ratio: Within normal limits. Coronary arteries: There are calcifications identified within the coronary arteries. Mediastinal space: No evidence of mediastinal or hilar mass. Lymph nodes: Unremarkable. No enlarged lymph nodes. Bones/joints: There are degenerative changes noted within the thoracic spine. No acute fracture. Soft tissues: There are gallstones present within the gallbladder. Borderline splenic enlargement. IMPRESSION: 1. No evidence of main or branch pulmonary embolism. 2. There is a patchy infiltrate identified at the right lung base. 3. Chronic parenchymal changes noted within both lung davila. 4. Gallstones. 5. Borderline splenic enlargement.
[2021-07-03 18:27] LABS: POC Glucose,Bedside 82 (70-110)
[2021-07-03 18:50] LABS: Basophils % 0.3 % (0.1-2.0); Eosinophils # 0.1 K/mm3 (0.0-0.4); Eosinophils % 1.3 % (0.1-12.0); Hematocrit 35.5 % (42.0-52.0); Hemoglobin 10.9 g/dL (14.1-18.0); Lymphocytes # 1.3 K/mm3 (0.7-4.5); Lymphocytes % 12.8 % (10-50); Mean Corpuscular HGB Conc 30.7 g/dL (31.8-35.4); Mean Corpuscular Hemoglobin 30.3 pg (27.0-31.2); Mean Corpuscular Volume 98.7 fl (80-94); Mean Platelet Volume 7.2 fl (7.4-10.4); Monocytes # 0.7 K/mm3 (0.1-1.0); Monocytes % 6.9 % (1.7-9.3); Neutrophils # 7.9 K/mm3 (1.8-7.8); Neutrophils % 78.5 % (37.0-80.0); Platelet Count 219 K/mm3 (142-424); Red Blood Count 3.59 M/mm3 (4.60-6.20); Red Cell Distribution Width 14.8 % (11.5-17.5); White Blood Count 10.1 K/mm3 (4.8-10.8)
[2021-07-03 19:00] LABS: Chloride 101 mmol/L (98-107); Sodium 137 mmol/L (136-145)
[2021-07-03 19:03] LABS: Blood Urea Nitrogen 8 mg/dl (9-20); Creatinine Clearance Estimated 74 mL/min (50-200); Estimated Glomerular Filt Rate 302 ml/min (>60); GFR (African American) 365 ML/MIN (>60)
[2021-07-03 19:04] LABS: Calcium 8.8 mg/dl (8.4-10.2); Carbon Dioxide 31 mmol/L (22.0-30.0); Glucose 110 mg/dl (74-100)
[2021-07-03 20:36] LABS: POC Glucose,Bedside 133 (70-110)
[2021-07-04] VITALS: BP 118/69; PULSE 88; RESP 17; TEMP 36.6; O2SAT 97
[2021-07-04 04:00] VITALS: BP 108/69; PULSE 93; RESP 19; TEMP 36.6; O2SAT 97
[2021-07-04 04:50] VITALS: BMI 22.0
[2021-07-04 05:35] LABS: POC Glucose,Bedside 108 (70-110)
[2021-07-04 06:56] LABS: Basophils % 0.3 % (0.1-2.0); Eosinophils # 0.1 K/mm3 (0.0-0.4); Eosinophils % 1.3 % (0.1-12.0); Hematocrit 30.3 % (42.0-52.0); Lymphocytes # 1.4 K/mm3 (0.7-4.5); Lymphocytes % 17.2 % (10-50); Mean Corpuscular HGB Conc 31.3 g/dL (31.8-35.4); Mean Corpuscular Hemoglobin 30.6 pg (27.0-31.2); Mean Corpuscular Volume 97.7 fl (80-94); Mean Platelet Volume 7.4 fl (7.4-10.4); Monocytes # 0.6 K/mm3 (0.1-1.0); Neutrophils # 5.9 K/mm3 (1.8-7.8); Neutrophils % 73.2 % (37.0-80.0); Platelet Count 218 K/mm3 (142-424); Red Cell Distribution Width 14.9 % (11.5-17.5)
[2021-07-04 07:02] LABS: Chloride 103 mmol/L (98-107); Sodium 137 mmol/L (136-145)
[2021-07-04 07:03] LABS: Potassium 3.8 mmoL/L (3.5-5.1)
[2021-07-04 07:05] LABS: Blood Urea Nitrogen 8 mg/dl (9-20); Creatinine Clearance Estimated 74 mL/min (50-200); Estimated Glomerular Filt Rate 302 ml/min (>60); GFR (African American) 365 ML/MIN (>60)
[2021-07-04 07:06] LABS: Anion Gap 7.8 mEq/L (5-15); Calcium 8.2 mg/dl (8.4-10.2); Carbon Dioxide 30 mmol/L (22.0-30.0); Glucose 101 mg/dl (74-100)
[2021-07-04 07:18] LABS: Hemoglobin 9.5 g/dL (14.1-18.0)
[2021-07-04 08:00] VITALS: BP 122/72; PULSE 104; RESP 20; TEMP 37.4; O2SAT 94
[2021-07-04 09:10] LABS: Coronavirus 19, PCR Not Detected (NotDetected); Influenza A, PCR Not Detected (NotDetected); Influenza B, PCR Not Detected (NotDetected)
--- NOTE | 2021-07-04 09:17 | HMH.PULMPN ---
Internal Medicine - PN: Subj *Date: 07/04/21 *Time: 11:36 Interval history: No acute respiratory vents overnight. Exam - Constitutional Constitutional:: Present: no acute distress, comfortable - HENMT Exam HENMT: Present: normocephalic, atraumatic - Eye Exam Eyes:: Present: normal appearance both eyes and related structures - Neck Exam Neck:: Present: normal visual inspection - Respiratory Exam Respiratory:: Present: able to speak in complete sentences, no respiratory distress, crackles - Cardiovascular Exam Cardiac:: Present: S1, S2 - GI Exam GI:: Present: soft - Skin Exam Skin: Present: warm, no rash - Neurological Exam Neurological: Present: alert, awake - Extremities Exam Extremities: Present: no cyanosis, no clubbing, no edema Assessment and Plan (1) PNA (pneumonia) Status: Acute Qualifiers: Pneumonia type: due to unspecified organism Laterality: right Lung location: lower lobe of lung Qualified Code(s): J18.9 - Pneumonia, unspecified organism Category: Medical Code(s): J18.9 - Pneumonia, unspecified organism (2) Acute respiratory failure with hypoxia Status: Acute Category: Medical Code(s): J96.01 - Acute respiratory failure with hypoxia (3) Sacral decubitus ulcer Status: Acute Qualifiers: Pressure injury stage: stage 4 Qualified Code(s): L89.154 - Pressure ulcer of sacral region, stage 4 Category: Medical Code(s): L89.159 - Pressure ulcer of sacral region, unspecified stage (4) 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 Sahu is a 66-year-old male no prior respiratory complaints, no significant smoking history, prior stroke with residual left-sided weakness, high aspiration risk, recently admitted to the hospital around April 2020 in the bilateral lower lobe pulmonary infiltrates during which she was treated with vancomycin and cefepime and eventually deescalated to Augmentin complete total of 7-day course presented to the hospital with low blood pressure and bibasilar crackles. Patient was at baseline 2 L nasal cannula at [facility] He recently finished levofloxacin on 06/27/2021. Chest x-ray bilateral lower lobe pulmonary infiltrates, right greater than left. When patient recent completion of antibiotics unclear whether the infiltrate noted at part of resolving pneumonia. Interval update: CTA performed lateral lower lobe right greater than left very minimal patchy airspace disease along with associated pleural thickening which more appeared to be chronic. Number embolism noted. Continue to remain afebrile with no evidence of leukocytosis. We will closely monitor, and have a low threshold to de-escalate/discontinue antibiotics at this point of time. Plan: -Strict aspiration precautions, given patient's prior stroke and weakness patient is high risk for aspiration and risk for recurrent pneumonias and hospitalizations. Patient also appeared to be needing feeding assistance, recommend evaluation and support as needed -Initiate incentive spirometry every 4 hours on a scheduled basis -Patient weaned to room air this morning saturations maintained at 94% and above. -Wean antibiotics to levofloxacin to complete a total of 5-day course. Thank you for involving pulmonary in this patient care. We will continue to follow.
--- NOTE | 2021-07-04 10:46 | HMH.DCSUM ---
General - General Admission date:: 07/02/21 Discharge date: 07/04/21 HPI HPI: 66 yr old male presented to ed via ambulance from [facility]. Staff reported to have had a low blood pressure and crackles in the bases of his lungs today. Patient is a poor historian as he is only oriented to person with previous stroke and has a left hemiparesis. Patient is on oxygen 2 L nasal cannula at [facility]. Patient finished Levaquin on 06/27/2021. Patient also has a unstable ulcer to coccyx. Admitted for rt lower lobe pneumonia. Hospital Course Hospital Course: Laboratory Tests 07/02/21 07/02/21 07/02/21 14:45 14:45 14:45 WBC 8.4 RBC 3.85 L Hgb 11.9 L Hct 38.0 L MCV 98.9 H MCH 31.0 MCHC 31.3 L RDW 14.9 Plt Count 294 MPV 7.4 Neut % (Auto) 71.5 Lymph % (Auto) 20.5 [place] % (Auto) 5.1 Eos % (Auto) 2.4 Baso % (Auto) 0.6 Neut # (Auto) 6.0 Lymph # (Auto) 1.7 [place] # (Auto) 0.4 Eos # (Auto) 0.2 Baso # (Auto) 0.1 Sodium 139 Potassium 4.5 Chloride 98 Carbon Dioxide 33 H Anion Gap 12.5 BUN 11 Creatinine 0.40 L Estimated Creat Clear 91 Estimated GFR 217 Est GFR ( Amer) 262 Glucose 54 L POC Glucose Lactate Calcium 9.2 Total Bilirubin 0.2 AST 19 ALT 8 L Alkaline Phosphatase 84 Troponin I < 0.01 NT-Pro-B Natriuret Pep 126 H Total Protein 6.1 L Albumin 2.8 L Globulin 3.3 H Albumin/Globulin Ratio 0.8 L SARS-CoV-2 (PCR) Influenza A Untype (PCR) Influenza Type B (PCR) 07/02/21 07/02/21 07/02/21 15:27 16:02 17:43 WBC RBC Hgb Hct MCV MCH MCHC RDW Plt Count MPV Neut % (Auto) Lymph % (Auto) [place] % (Auto) Eos % (Auto) Baso % (Auto) Neut # (Auto) Lymph # (Auto) [place] # (Auto) Eos # (Auto) Baso # (Auto) Sodium Potassium Chloride Carbon Dioxide Anion Gap BUN Creatinine Estimated Creat Clear Estimated GFR Est GFR ( Amer) Glucose POC Glucose 84 Lactate 1.2 Calcium Total Bilirubin AST ALT Alkaline Phosphatase Troponin I NT-Pro-B Natriuret Pep Total Protein Albumin Globulin Albumin/Globulin Ratio SARS-CoV-2 (PCR) Not detected Influenza A Untype (PCR) Not detected Influenza Type B (PCR) Not detected 07/02/21 07/02/21 07/02/21 20:49 22:09 23:38 WBC RBC Hgb Hct MCV MCH MCHC RDW Plt Count MPV Neut % (Auto) Lymph % (Auto) [place] % (Auto) Eos % (Auto) Baso % (Auto) Neut # (Auto) Lymph # (Auto) [place] # (Auto) Eos # (Auto) Baso # (Auto) Sodium Potassium Chloride Carbon Dioxide Anion Gap BUN Creatinine Estimated Creat Clear Estimated GFR Est GFR ( Amer) Glucose POC Glucose 63 L 59 L 69 L Lactate Calcium Total Bilirubin AST ALT Alkaline Phosphatase Troponin I NT-Pro-B Natriuret Pep Total Protein Albumin Globulin Albumin/Globulin Ratio SARS-CoV-2 (PCR) Influenza A Untype (PCR) Influenza Type B (PCR) 07/03/21 07/03/21 07/03/21 05:07 11:16 16:37 WBC RBC Hgb Hct MCV MCH MCHC RDW Plt Count MPV Neut % (Auto) Lymph % (Auto) [place] % (Auto) Eos % (Auto) Baso % (Auto) Neut # (Auto) Lymph # (Auto) [place] # (Auto) Eos # (Auto) Baso # (Auto) Sodium Potassium Chloride Carbon Dioxide Anion Gap BUN Creatinine Estimated Creat Clear Estimated GFR Est GFR ( Amer) Glucose POC Glucose 75 85 68 L Lactate Calcium Total Bilirubin AST ALT Alkaline Phosphatase Troponin I NT-Pro-B Natriuret Pep Total Protein Albumin Globulin Albumin/Globulin Ratio SARS-CoV-2 (PCR) Influen
[2021-07-04 12:00] VITALS: BP 120/67; PULSE 109; RESP 18; TEMP 37.1; O2SAT 100
[2021-07-04 15:45] VITALS: O2SAT 97
[2021-07-04 16:00] VITALS: BP 95/63; PULSE 94; RESP 19; TEMP 36.8; O2SAT 97
--- NOTE | 2021-07-04 16:18 | PC.NURSE ---
R arm appeared to have infiltrated with IVF's. IV removed and arm elevated. Swelling was decreasing. Pt appeared to have no pain. Report given to SHAINA Green @ [facility]. Pt sats 97% on RA when leaving via ems. Wound vac dsg/tubing intact, Norma aware of need for wound vac to be placed as well @ [facility] home.
[2021-07-05 10:19] LABS: POC Glucose,Bedside 161 (70-110)
== END 2021-07-04 15:55 ==
LOC: ER 16:10 → 2ND 16:24
PROVIDERS: Nurse Practitioner Family; Admitting Provider Emergency Medicine; Emergency Provider Emergency Medicine; Visit Provider Emergency Medicine
DX: J18.9 Pneumonia, unspecified organism (principal); Z20.822 Contact with and (suspected) exposure to COVID-19; E11.9 Type 2 diabetes mellitus without complications; Z79.84 Long term (current) use of oral hypoglycemic drugs; K21.9 Gastro-esophageal reflux disease without esophagitis; G40.909 Epilepsy, unspecified, not intractable, without status epilepticus; I10 Essential (primary) hypertension; Z79.899 Other long term (current) drug therapy; J96.01 Acute respiratory failure with hypoxia; L89.154 Pressure ulcer of sacral region, stage 4; I69.354 Hemiplegia and hemiparesis following cerebral infarction affecting left non-dominant side; R06.9 Unspecified abnormalities of breathing
CPT/HCPCS: G0378; 36415; 71045; 71275; 80048; 80053; 82962; 83605; 83880; 84484; 85025; 87040; 87077; 87186; 93005; 96365; 96367; 96375; 99284; C9803; J1956; Q9967; U0003; U0005

== ENCOUNTER → 2021-07-16 11:12 | Outpatient (CLI) | payer MEDICARE, MEDICAID, SELFPAY | PROVIDERS: Visit Provider Emergency Medicine | DX: L89.152 Pressure ulcer of sacral region, stage 2 (principal) | CPT/HCPCS: 87070; 87077; 87186; 87205 ==

== ENCOUNTER → 2021-07-25 06:48 | Outpatient (CLI) | payer MEDICARE, MEDICAID, SELFPAY ==
[2021-07-25 08:52] LABS: Basophils % 0.4 % (0.1-2.0); Eosinophils # 0.1 K/mm3 (0.0-0.4); Eosinophils % 1.9 % (0.1-12.0); Hemoglobin 9.8 g/dL (14.1-18.0); Lymphocytes # 1.3 K/mm3 (0.7-4.5); Lymphocytes % 22.1 % (10-50); Mean Corpuscular HGB Conc 31.5 g/dL (31.8-35.4); Mean Corpuscular Hemoglobin 30.5 pg (27.0-31.2); Mean Platelet Volume 8.5 fl (7.4-10.4); Monocytes # 0.4 K/mm3 (0.1-1.0); Monocytes % 6.3 % (1.7-9.3); Neutrophils # 4.2 K/mm3 (1.8-7.8); Neutrophils % 69.3 % (37.0-80.0); Platelet Count 190 K/mm3 (142-424); Red Blood Count 3.19 M/mm3 (4.60-6.20); Red Cell Distribution Width 15.4 % (11.5-17.5)
[2021-07-25 09:14] LABS: Alanine Aminotransferase 8 U/L (12-78); Albumin Level 2.2 g/dl (3.5-5.0); Albumin/Globulin Ratio 0.8 (1.1-1.8); Alkaline Phosphatase 56 U/L (38-126); Anion Gap 5.5 mEq/L (5-15); Aspartate Amino Transferase 14 U/L (17-59); Bilirubin,Total 0.1 mg/dl (0.2-1.3); Blood Urea Nitrogen 8 mg/dl (9-20); Calcium 8.1 mg/dl (8.4-10.2); Carbon Dioxide 34 mmol/L (22.0-30.0); Chloride 110 mmol/L (98-107); Estimated Glomerular Filt Rate 217 ml/min (>60); GFR (African American) 262 ML/MIN (>60); Globulin 2.7 g/dL (1.3-3.2); Glucose 113 mg/dl (74-100); Potassium 3.5 mmoL/L (3.5-5.1); Sodium 146 mmol/L (136-145); Total Protein,Serum 4.9 g/dl (6.3-8.2)
[2021-07-26 07:11] LABS: Prealbumin 12 mg/dL (10-36); Transferrin 110 mg/dL (177-329)
== END ==
PROVIDERS: Visit Provider Emergency Medicine
DX: L89.152 Pressure ulcer of sacral region, stage 2 (principal); R79.89 Other specified abnormal findings of blood chemistry
CPT/HCPCS: 36415; 80053; 84134; 84466; 85025

== ENCOUNTER 2021-08-06 08:38 | Inpatient (IN) | payer MEDICARE, MEDICAID, SELFPAY ==
[2021-08-06] VITALS (10 sets, daily range): BP systolic 99–128; BP diastolic 54–90; PULSE 81–119; RESP 19–34; TEMP 36.8–39.4; O2SAT 90–98; BMI 24.4; BMI 18.1
--- NOTE | 2021-08-06 08:47 | XR_ITS ---
PROCEDURE INFORMATION: Exam: XR Chest Exam date and time: 08/06/2021 8:47 AM Age: 66 years old Clinical indication: Other: Fever TECHNIQUE: Imaging protocol: XR of the chest. Views: 1 view. COMPARISON: CR XR CHEST PORTABLE 07/02/2021 2:37 PM FINDINGS: Lungs: Increasing consolidation right lung base. Left lung is clear. Pleural spaces: Unremarkable. No pleural effusion. No pneumothorax. Heart/Mediastinum: Unremarkable. No cardiomegaly. Diaphragm: There is nonspecific elevation of the right hemidiaphragm. Bones/joints: Degenerative changes of the spine. Other findings: Study limited by patient rotation to the right. IMPRESSION: Increasing consolidation at the right lung base concerning for worsening pneumonia. Recommend following until clear.
--- NOTE | 2021-08-06 08:47 | CT_ITS ---
PROCEDURE: CT BONY PELVIS CLINICAL INDICATION: sacral ulcer and fever COMPARISON: CT CT ABDOMEN PELVIS WO CON from 08/10/2020 TECHNIQUE: Axial images obtained with sagittal and coronal reformats. All CT scans at the facility use one or more dose reduction, viz: automated exposure control, ma/kV adjustment per patient size (including targeted exams where dose is matched to indication, i.e. head), or iterative reconstruction technique. FINDINGS: Postsurgical changes anterior abdominal wall with fat containing left paracentral abdominal wall hernia adjacent to the mesh. The hernia defect measures 14 mm in transverse. An additional small hernia is present just inferior to this region also containing fat. A ventral abdominal wall hernia centrally is noted containing a loop of small bowel at the S1 level. No evidence of bowel obstruction. Colonic diverticulosis. Calcification present in the right lower quadrant possibly due to fat necrosis. Moderate amount of retained colonic feces. There is a small left inguinal hernia containing fat. Soft tissue thickening is noted posterior to the proximal coccyx level. Small amount of soft tissue gas is present just to the left of this region in the subcutaneous tissues. No obvious fluid collection. Small abscesses may not be visualized without IV contrast.. No obvious bony erosive change. No intrapelvic fluid collection.. IMPRESSION: Cellulitis posterior and to the left of the proximal coccyx. There is a small amount of soft tissue gas to the left of the proximal coccyx level. No obvious fluid collection. Small abscesses may not be visualized without IV contrast. Multiple abdominal wall hernias as described above. Other nonacute findings. Dictated by: Josias Thacker MD 08/06/2021 09:56 Josias Thacker MD in OV 08/06/2021 09:56
--- NOTE | 2021-08-06 08:54 | HMH.EDFEV ---
ED Disposition Clinical Impression: Pneumonia, Acute respiratory failure with hypoxia, Hypernatremia, Hypokalemia, Severe sepsis with acute organ dysfunction Disposition: Admitted As Inpatient Condition on Discharge: Good - Critical Care Critical Care Time: Yes Attestation: On 08/06/21, the high probability of a clinically significant, sudden or life threatening deterioration of the following system(s) required my full and direct attention, intervention and personal management. The time I documented below is in addition to time spent performing reported procedures but includes the following listed in this critical care notation. Total Critical Care Time: 30 Vital system(s) involved:: Shock (Septic) My critical care processes included: Assessment & monitoring of V/S, Initial and Re-exams, Data Review/Interpretation, Coordinating Care, Medication Orders and management, Documentation Medical Decision Making - Medical Records Medical records reviewed: Yes: I reviewed the patient's medical records. - Mikey Inquiry Pt receiving controlled substance: No Vital Signs: 08/06/21 09:12 08/06/21 10:00 08/06/21 10:30 Temperature 102.9 F H Temperature Source Rectal Pulse Rate 95 H 99 H Pulse Rate [Left Radial] 119 H Respiratory Rate 24 29 H 26 H Blood Pressure 118/77 114/81 Blood Pressure [Right Arm] 118/67 Blood Pressure Mean 83 88 Blood Pressure Mean [Right Arm] 84 Blood Pressure Source [Right Arm] Automatic Cuff Blood Pressure Position [Right Arm] Sitting 02 Sat by Pulse Oximetry 90 L 98 94 L Oxygen Delivery Method Nasal Cannula Oxygen Flow Rate (LPM) 5 08/06/21 11:00 Temperature Temperature Source Pulse Rate 96 H Pulse Rate [Left Radial] Respiratory Rate 24 Blood Pressure 128/90 Blood Pressure [Right Arm] Blood Pressure Mean 100 Blood Pressure Mean [Right Arm] Blood Pressure Source [Right Arm] Blood Pressure Position [Right Arm] 02 Sat by Pulse Oximetry 96 Oxygen Delivery Method Oxygen Flow Rate (LPM) - Lab Data Lab Results 08/06/21 09:15: WBC 7.7, RBC 3.79 L, Hgb 11.5 L, Hct 37.2 L, MCV 98.0 H, MCH 30.3, MCHC 30.9 L, RDW 15.1, Plt Count 330, MPV 8.3, Neut % (Auto) 78.3, Lymph % (Auto) 15.1, [place] % (Auto) 5.8, Eos % (Auto) 0.6, Baso % (Auto) 0.2, Neut # (Auto) 6.0, Lymph # (Auto) 1.2, [place] # (Auto) 0.5, Eos # (Auto) 0.0, Baso # (Auto) 0.0 08/06/21 09:15: Sodium 159 H*, Potassium 2.8 L*, Chloride 116 H, Carbon Dioxide 37 H, Anion Gap 8.8, BUN 20, Creatinine 0.60 L, Estimated Creat Clear 86, Estimated GFR 136, Est GFR ( Amer) 164, Glucose 144 H, Calcium 8.7, Total Bilirubin 0.4, AST 21, ALT 7 L, Alkaline Phosphatase 100, Troponin I < 0.01, Total Protein 6.1 L, Albumin 2.9 L, Globulin 3.2, Albumin/Globulin Ratio 0.9 L 08/06/21 09:15: Lactate 1.2 08/06/21 09:15: SARS-CoV-2 (PCR) Not detected, Influenza A Untype (PCR) Not detected, Influenza Type B (PCR) Not detected 08/06/21 10:40: VBG pH 7.42 H, VBG pCO2 42.0, VBG pO2 67.0 H, VBG HCO3 26.6, VBG Total CO2 27.9 H, VBG O2 Saturation 92.8 H, VBG Base Excess 2.2 Result diagrams: 08/06/21 15:50 08/06/21 15:50 Orders (Tests/Meds): ED MEDICATIONS Generic Name Dose Route Start Last Admin Trade Name Freq PRN Reason Stop Dose Admin Acetaminophen 650 mg 08/06/21 12:22 Acetaminophen 325mg Tab PO 09/05/21 12:21 Q4HP PRN Fever or Mild Pain Docusate Sodium 100 mg 08/06/21 12:22 08/06/21 14:17 Docusate Sodium 100 Mg Capsule PO 09/05/21 12:21 Not Given DAILY MARLEN Piperacillin Sod/Tazobactam 50 mls @ 100 mls/hr 08/06/21 13:00 08/06/21 13:36 Sod 3.375 gm/ Sodium Chloride IV 08/20/21 12:59 100 mls/hr Q8H MARLEN Administration Vancomycin/PEG/NADA/Lysine/Water 1.5 gm in 300 mls @ 150 mls/hr 08/06/21 23:00 Vancomycin 1.5gm/300ml (Peg) Premix IV 08/20/21 22:59 Q12H MARLEN Sodium Chloride 1,000 mls @ 50 mls/hr 08/06/21 12:22 08/06/21 13:27 Sod Chlor 0.9% 1000ml Bag IV 09/05/21 12:21 50 mls
--- NOTE | 2021-08-06 09:33 | ECG_ITS ---
APPROVED REPORT Exam: Resting ECG HR:101 bpm ECG Measurements Heart Rate 101 AXES MS 112 P 51 QRSd 80 QRS 24 QT 452 T 56 QTc 586 Conclusion Sinus tachycardia Nonspecific ST and T wave abnormality Abnormal ECG Electronically signed by : Flaquito Stewart MD 08/06/2021 20:01:58
[2021-08-06 09:37] LABS: Coronavirus 19, PCR Not Detected (NotDetected); Influenza A, PCR Not Detected (NotDetected); Influenza B, PCR Not Detected (NotDetected)
[2021-08-06 09:46] LABS: Chloride 116 mmol/L (98-107)
[2021-08-06 09:48] LABS: Basophils % 0.2 % (0.1-2.0); Blood Urea Nitrogen 20 mg/dl (9-20); Creatinine Clearance Estimated 86 mL/min (50-200); Eosinophils % 0.6 % (0.1-12.0); Estimated Glomerular Filt Rate 136 ml/min (>60); GFR (African American) 164 ML/MIN (>60); Hematocrit 37.2 % (42.0-52.0); Hemoglobin 11.5 g/dL (14.1-18.0); Lactic Acid 1.2 mmol/L (0.7-2.1); Lymphocytes # 1.2 K/mm3 (0.7-4.5); Lymphocytes % 15.1 % (10-50); Mean Corpuscular HGB Conc 30.9 g/dL (31.8-35.4); Mean Corpuscular Hemoglobin 30.3 pg (27.0-31.2); Mean Platelet Volume 8.3 fl (7.4-10.4); Monocytes # 0.5 K/mm3 (0.1-1.0); Monocytes % 5.8 % (1.7-9.3); Neutrophils % 78.3 % (37.0-80.0); Platelet Count 330 K/mm3 (142-424); Red Blood Count 3.79 M/mm3 (4.60-6.20); Red Cell Distribution Width 15.1 % (11.5-17.5); White Blood Count 7.7 K/mm3 (4.8-10.8)
[2021-08-06 09:49] LABS: Alanine Aminotransferase 7 U/L (12-78); Albumin Level 2.9 g/dl (3.5-5.0); Albumin/Globulin Ratio 0.9 (1.1-1.8); Alkaline Phosphatase 100 U/L (38-126); Aspartate Amino Transferase 21 U/L (17-59); Bilirubin,Total 0.4 mg/dl (0.2-1.3); Calcium 8.7 mg/dl (8.4-10.2); Carbon Dioxide 37 mmol/L (22.0-30.0); Globulin 3.2 g/dL (1.3-3.2); Glucose 144 mg/dl (74-100); Total Protein,Serum 6.1 g/dl (6.3-8.2)
[2021-08-06 09:53] LABS: Anion Gap 8.8 mEq/L (5-15); Potassium 2.8 mmoL/L (3.5-5.1); Sodium 159 mmol/L (136-145)
--- NOTE | 2021-08-06 09:57 | PC.NURSE ---
notified of critical lab results
[2021-08-06 10:12] LABS: Troponin I < 0.01 ng/ml (0.00-0.034)
--- NOTE | 2021-08-06 10:28 | HMH.PHACONS ---
- Pharmacy Consult Date: 08/06/21 Time: 10:28 Referring provider: DR. MCLEAN Reason for Consult:: VANCOMYCIN DOSING CONSULT Allergies and ADEs:: Allergies Allergy/AdvReac Type Severity Reaction Status Date / Time No Known Allergies Allergy Verified 05/23/21 21:28 Home Medications:: Home Medications Medication Instructions Recorded Confirmed Type Ondansetron [Zofran 4mg ODT] 4 mg PO TIDP PRN #12 tab 08/10/20 07/02/21 Rx risperiDONE [Risperidone] 1 mg PO HS 08/12/20 07/02/21 History Benztropine Mesylate [Cogentin 1mg 1 mg PO DAILY 04/12/21 07/02/21 History tablet] Docusate Sodium [Colace] 100 mg PO BID 04/12/21 07/02/21 History Linagliptin [Tradjenta 5mg tablet] 5 mg PO DAILY 04/12/21 07/02/21 History Loperamide HCl [Imodium 2 mg 2 mg PO DAILY 04/12/21 07/02/21 History capsule] Metformin HCl [Glucophage 500mg 500 mg PO BID 04/12/21 07/02/21 History Tablet] glipiZIDE [Glucotrol 5mg tablet] 5 mg PO BID 04/12/21 07/02/21 History lisinopriL [Zestril 10mg Tab] 10 mg PO DAILY 04/12/21 07/02/21 History Omeprazole [Omeprazole 20mg 20 mg PO DAILY 07/02/21 07/02/21 History Capsule] Sertraline HCl [Zoloft 100mg 100 mg PO DAILY 07/02/21 07/02/21 History tablet] Divalproex Sodium [Depakote] 750 mg PO BID 07/03/21 07/03/21 History levoFLOXacin [Levaquin 750mg 750 mg PO DAILY 4 Days #4 tab 07/04/21 Rx tablet] Height: 1.83 m Weight: 81.647 kg Laboratory Results:: Laboratory Results - last 24 hr 08/06/21 09:15: WBC 7.7, RBC 3.79 L, Hgb 11.5 L, Hct 37.2 L, MCV 98.0 H, MCH 30.3, MCHC 30.9 L, RDW 15.1, Plt Count 330, MPV 8.3, Neut % (Auto) 78.3, Lymph % (Auto) 15.1, [place] % (Auto) 5.8, Eos % (Auto) 0.6, Baso % (Auto) 0.2, Neut # (Auto) 6.0, Lymph # (Auto) 1.2, [place] # (Auto) 0.5, Eos # (Auto) 0.0, Baso # (Auto) 0.0 08/06/21 09:15: Sodium 159 H*, Potassium 2.8 L*, Chloride 116 H, Carbon Dioxide 37 H, Anion Gap 8.8, BUN 20, Creatinine 0.60 L, Estimated Creat Clear 86, Estimated GFR 136, Est GFR ( Amer) 164, Glucose 144 H, Calcium 8.7, Total Bilirubin 0.4, AST 21, ALT 7 L, Alkaline Phosphatase 100, Troponin I < 0.01, Total Protein 6.1 L, Albumin 2.9 L, Globulin 3.2, Albumin/Globulin Ratio 0.9 L 08/06/21 09:15: Lactate 1.2 08/06/21 09:15: SARS-CoV-2 (PCR) Not detected, Influenza A Untype (PCR) Not detected, Influenza Type B (PCR) Not detected Medical History: Reports:: BPH, Cerebrovascular Accident, Diabetes Mellitus Type 2, Gastroesophageal Reflux Disease(GERD), Hyperlipidemia, Hypertension, Seizures Assessment and Plan - Assessment and plan all Dx Assessment and Plan for all problems:: LOADING DOSE = 20 MG/KG x 81.647 KG = 1632.94 MG ~ 1750 MG RECOMMEND GIVING VANCOMYCIN 1750 MG IV ONCE A LOADING DOSE. THANK YOU FOR THE CONSULT, PHARMACY WILL CONTINUE TO FOLLOW AND WILL MAKE RECOMMENDATIONS FOR DOSING REGIMEN IF ADMITTED.
--- NOTE | 2021-08-06 11:48 | PC.NURSE ---
pt arrived to the floor at this time
--- NOTE | 2021-08-06 12:16 | HMH.PHAINT ---
MEDICATION RECONCILIATION COMPLETE USING COPY OF [facility].
[2021-08-06 12:17] LABS: VBG Base Excess 2.2 mmol/L (-2.4-2.3); VBG HCO3 26.6 mmol/L (23-30); VBG Oxygen Saturation 92.8 % (50-70); VBG PH 7.42 mmol/L (7.31-7.41); VBG Total CO2 27.9 mmol/L (23-27)
--- NOTE | 2021-08-06 12:17 | P.CONPHA_ITS ---
[facility] Pharmacy VTE Monitoring - Patient Demographics Admission date: 08/06/21 Report Date: 08/06/21 Time: 12:17 Allergies/Adverse Reactions: Patient Allergies No Known Allergies Allergy (Verified 05/23/21 21:28) Height: 1.83 m Weight: 81.647 kg - VTE Risk Labs: VTE Related Lab Results Hgb 11.5 g/dL (14.1-18.0) L 08/06/21 09:15 Hct 37.2 % (42.0-52.0) L 08/06/21 09:15 Plt Count 330 K/mm3 (142-424) 08/06/21 09:15 BUN 20 mg/dl (9-20) 08/06/21 09:15 Creatinine 0.60 mg/dl (0.66-1.25) L 08/06/21 09:15 Estimated Creat Clear 86 mL/min (50-200) 08/06/21 09:15 Was VTE Risk Assessment Performed: No Clinical Trial Participant: No - Prophylaxis VTE Prophylaxis Ordered?: Yes Types of VTE Prophylaxis: TEDS Knee High Location of Applied Device: Bilateral Lower Extremeties
--- NOTE | 2021-08-06 12:56 | HMH.HP ---
*Admission Date: 08/06/21 *Chief complaint: Fever, SOA *History of present illness: 66 YOM presented to [facility] ED with fever and increasing SOA. He has had pneumonia recently and oxygenation 91% on 4l per NC. He has a Stage 4 Ulcer with packing intact. [facility] History I have reviewed the patient's past medical history: Yes Medical History: Reports:: BPH, Cerebrovascular Accident, Diabetes Mellitus Type 2, Gastroesophageal Reflux Disease(GERD), Hyperlipidemia, Hypertension, Seizures *Have you ever received a pneumonia vaccine?: Yes *Have you received a flu vaccine this season?: Yes Laterality Cases: Bilateral: Tonsillectomy - *Social History Smoking Status: Unknown if ever smoked Alcohol Intake: never Alcohol Intake Frequency:: 0-2 drinks per day Substance Use Type: denies use *Occupational Status:: disabled Housing: assisted *Travel in the last 8 weeks: None Family Hx:: Unable to obtain Review of Systems - Review of Systems Review of systems:: unable to obtain - Constitutional Reports fatigue, Reports fever(s) - *Respiratory Reports chest congestion, Reports cough, Reports shortness of breath, Reports shortness of breath with activity Meds Home Medications Medication Instructions Recorded Confirmed Type risperiDONE [Risperidone] 1 mg PO HS 08/12/20 08/06/21 History Benztropine Mesylate [Cogentin 1mg 1 mg PO HS 04/12/21 08/06/21 History tablet] Linagliptin [Tradjenta 5mg tablet] 5 mg PO DAILYDM 04/12/21 08/06/21 History Metformin HCl [Glucophage 500mg 500 mg PO BIDWMEAL 04/12/21 08/06/21 History Tablet] glipiZIDE [Glucotrol 5mg tablet] 5 mg PO BIDWMEAL 04/12/21 08/06/21 History lisinopriL [Zestril 10mg Tab] 10 mg PO DAILY 04/12/21 08/06/21 History Omeprazole [Omeprazole 20mg 20 mg PO DAILY 07/02/21 08/06/21 History Capsule] Sertraline HCl [Zoloft 100mg 100 mg PO DAILY 07/02/21 08/06/21 History tablet] Divalproex Sodium [Depakote] 750 mg PO BID 07/03/21 08/06/21 History Docusate Sodium [Docusate Sod 100 mg PO BID 08/06/21 08/06/21 History Liquid 100mg/10mL udc] Ipratropium/Albuterol Sulfate 3 ml IH Q4HP PRN 08/06/21 08/06/21 History [Iprat-Albut 0.5-3(2.5) mg/3 ml] predniSONE [Prednisone 20mg 20 mg PO DAILY 08/06/21 08/06/21 History Tab] Allergies Allergy/AdvReac Type Severity Reaction Status Date / Time No Known Allergies Allergy Verified 05/23/21 21:28 Exam Vital signs and Labs for Last 24 Hours: Temp Pulse Resp BP Pulse Ox 98.4 F 90 34 H 126/83 95 08/06/21 12:35 08/06/21 12:35 08/06/21 12:35 08/06/21 12:35 08/06/21 12:35 Laboratory Results - last 24 hr 08/06/21 09:15: WBC 7.7, RBC 3.79 L, Hgb 11.5 L, Hct 37.2 L, MCV 98.0 H, MCH 30.3, MCHC 30.9 L, RDW 15.1, Plt Count 330, MPV 8.3, Neut % (Auto) 78.3, Lymph % (Auto) 15.1, [place] % (Auto) 5.8, Eos % (Auto) 0.6, Baso % (Auto) 0.2, Neut # (Auto) 6.0, Lymph # (Auto) 1.2, [place] # (Auto) 0.5, Eos # (Auto) 0.0, Baso # (Auto) 0.0 08/06/21 09:15: Sodium 159 H*, Potassium 2.8 L*, Chloride 116 H, Carbon Dioxide 37 H, Anion Gap 8.8, BUN 20, Creatinine 0.60 L, Estimated Creat Clear 86, Estimated GFR 136, Est GFR ( Amer) 164, Glucose 144 H, Calcium 8.7, Total Bilirubin 0.4, AST 21, ALT 7 L, Alkaline Phosphatase 100, Troponin I < 0.01, Total Protein 6.1 L, Albumin 2.9 L, Globulin 3.2, Albumin/Globulin Ratio 0.9 L 08/06/21 09:15: Lactate 1.2 08/06/21 09:15: SARS-CoV-2 (PCR) Not detected, Influenza A Untype (PCR) Not detected, Influenza Type B (PCR) Not detected 08/06/21 10:40: VBG pH 7.42 H, VBG pCO2 42.0, VBG pO2 67.0 H, VBG HCO3 26.6, VBG Total CO2 27.9 H, VBG O2 Saturation 92.8 H, VBG Base Excess 2.2 I & O for Last 24 hours: Intake & Output 08/03/21 08/04/21 08/05/21 08/06/21 23:59 23:59 23:59 23:59 Weight 134 lb 7 oz - Constitutional mild distress, thin, chronically ill appearing - *Routine HEENT Exam Head: Present: normocephalic Eye: Present: EOMI ENT: Present: mucous membranes dr
--- NOTE | 2021-08-06 13:12 | PC.NURSE ---
called maldonado of the court to get premession for pictures to be taken. verified conent with l.king nicolas. spoke with malika cervantes at guardianship. during this time it was relayed from them that guardianship was changed over to [facility] with a phone number of [phone].
[2021-08-06 13:33] LABS: Chloride 97 mmol/L (98-107)
[2021-08-06 13:34] LABS: Sodium 133 mmol/L (136-145)
[2021-08-06 13:36] LABS: Albumin Level 1.7 g/dl (3.5-5.0); Albumin/Globulin Ratio 0.9 (1.1-1.8); Alkaline Phosphatase 37 U/L (38-126); Anion Gap 16.9 mEq/L (5-15); Aspartate Amino Transferase 14 U/L (17-59); Bilirubin,Total 0.8 mg/dl (0.2-1.3); Blood Urea Nitrogen 13 mg/dl (9-20); Carbon Dioxide 21 mmol/L (22.0-30.0); Creatinine Clearance Estimated 64 mL/min (50-200); Estimated Glomerular Filt Rate 302 ml/min (>60); GFR (African American) 365 ML/MIN (>60); Total Protein,Serum 3.7 g/dl (6.3-8.2)
[2021-08-06 13:37] LABS: Glucose 95 mg/dl (74-100); Lactic Acid 0.8 mmol/L (0.7-2.1)
[2021-08-06 13:39] LABS: Alanine Aminotransferase < 4 U/L (12-78)
[2021-08-06 13:40] LABS: Potassium 1.9 mmoL/L (3.5-5.1)
[2021-08-06 13:40] LABS: Troponin I < 0.01 ng/ml (0.00-0.034)
--- NOTE | 2021-08-06 13:42 | PC.NURSE ---
lab called and reported a critical potassium of 1.9 and a calcium of 5.3. this was immediately relayed to lakesha lester. lakesha lester also stated to order a wound consult on patient for wound to coccyx
--- NOTE | 2021-08-06 13:48 | PC.NURSE ---
placed dressing over bilateral ankles. redness to r ankle and l ankle noted to have scab. will float heels. dressing placed over coccyx until wound eval done
[2021-08-06 13:53] LABS: Basophils % 0.3 % (0.1-2.0); Eosinophils % 0.6 % (0.1-12.0); Hematocrit 24.3 % (42.0-52.0); Lymphocytes # 0.9 K/mm3 (0.7-4.5); Lymphocytes % 17.8 % (10-50); Mean Corpuscular HGB Conc 29.9 g/dL (31.8-35.4); Mean Corpuscular Hemoglobin 30.3 pg (27.0-31.2); Mean Corpuscular Volume 101.2 fl (80-94); Mean Platelet Volume 9.3 fl (7.4-10.4); Monocytes # 0.3 K/mm3 (0.1-1.0); Neutrophils # 3.8 K/mm3 (1.8-7.8); Neutrophils % 76.3 % (37.0-80.0); Platelet Count 190 K/mm3 (142-424); Red Cell Distribution Width 15.5 % (11.5-17.5)
[2021-08-06 14:01] LABS: Hemoglobin 7.3 g/dL (14.1-18.0)
--- NOTE | 2021-08-06 14:21 | PC.WOUNDNOTE ---
l ankle scab 1cmx0.5cm
--- NOTE | 2021-08-06 14:22 | PC.WOUNDNOTE ---
Addendum entered by Negin Marr RN 08/06/21 14:23: l coccyx Original Note: [id number] wound. stage 4.
--- NOTE | 2021-08-06 14:23 | PC.WOUNDNOTE ---
picture of l coccyx wound without measurement tool
--- NOTE | 2021-08-06 14:30 | PC.NURSE ---
1425 notified of critical potassium 1.9 and hgb of 7.3. these relayed to lakesha lester. he stated to order wound care for patient on l coccyx wound
--- NOTE | 2021-08-06 14:46 | SW/DCPLANNER ---
Addendum entered by Negin Beck 08/13/21 14:24: This patient will return to [facility] today pending EOL. I have informed Nurse Community Service Director and Edison mansfield/ [facility]. I will continue to follow up w/ Nurse Community Service Director and Hospice once I receive approval for EOL. COVID swab from today is negative and has been faxed. Addendum entered by Negin Beck 08/13/21 11:15: I have received DNR approval and I am currently waiting for EOL approval to set up with Hospice and return to [facility]. Addendum entered by Negin Beck 08/12/21 10:24: Sindi (Nurse Community Service Director) reached out to me this AM regarding DNR/EOL paperwork has incomplete sections. I am working to get completed paperwork and to receive approval for DNR/EOL. I will continue to follow up with Dr Dixon/Sindi/Price Serna. Addendum entered by Susanne Pagan 08/09/21 11:34: PATIENT REMAINS IN THE ACUTE HOSPITAL AND IS A LONGSTANDING RESIDENT OF [facility] IN [place] WHERE HE IS UNDER STATE GUARDIANSHIP... PATIENTS CONTINUES TO SHOW DECLINE AND PATIENT HAS EXPRESSED THAT HE DOES NOT WANT ANY AIR TESTER FEEDING TUBES, I WITNESSED THIS MYSELF.. THE PROCESS OF GETTING A DNR/END OF LIFE PAPERWORK HAS BEEN STARTED... I HAVE GOTTEN A CONSULTING NOTE FROM DR WILL AND ALL THE PAPERWORK FROM HIS PRIMARY EDUAR HAS BEEN COMPLETED.. I HAVE SENT IT IN THE NURSE EXPAMINER AND HAVE BEEN IN TOUCH WITH EDISON AT [facility] TO LET HER KNOW WHAT HAS BEEN DONE..WAITING TO HEAR BACK FROM THE EXAMINER... Addendum entered by Negin Beck 08/07/21 11:42: Price Serna asked that I assist with DNR EOL forms for this patient. I have faxed forms to Abelino mansfield/ Dr Dixon office for completion. Addendum entered by Negin Beck 08/07/21 09:39: Edison mansfield/ [facility] Serna has stated that she is currently in the process of completing all DNR/EOL paperwork for this patient. Original Note: This patient currently resides at [facility]. I spoke with Edison from [facility] to confirm patient is ICF level of care. I will continue to follow up with Edison until patient is medically stable for discharge.
--- NOTE | 2021-08-06 15:22 | PC.NURSE ---
at 1340 lab called and stated that patient calcium was 5.3 and potassium was 1.9 d.beatrice lester was immediately notified of this. while on phone with him he stated to put in a wound consult on patient. 1426 hayden barron aprn was also notified of hgb dropping to 7.3. did attempt to redraw labs but patient is now refusing to be stuck
[2021-08-06 15:31] LABS: Calcium 5.3 mg/dl (8.4-10.2)
--- NOTE | 2021-08-06 15:46 | PC.NURSE ---
lab relayed they felt recent labs were invalid and were going to attempt a redraw. was made aware
[2021-08-06 16:14] LABS: Basophils % 0.3 % (0.1-2.0); Eosinophils # 0.1 K/mm3 (0.0-0.4); Eosinophils % 1.1 % (0.1-12.0); Hematocrit 33.4 % (42.0-52.0); Lymphocytes # 1.2 K/mm3 (0.7-4.5); Lymphocytes % 17.1 % (10-50); Mean Corpuscular HGB Conc 31.2 g/dL (31.8-35.4); Mean Corpuscular Hemoglobin 30.6 pg (27.0-31.2); Mean Platelet Volume 9.4 fl (7.4-10.4); Monocytes # 0.4 K/mm3 (0.1-1.0); Monocytes % 5.1 % (1.7-9.3); Neutrophils # 5.4 K/mm3 (1.8-7.8); Neutrophils % 76.5 % (37.0-80.0); Platelet Count 269 K/mm3 (142-424); Red Blood Count 3.41 M/mm3 (4.60-6.20); Red Cell Distribution Width 15.5 % (11.5-17.5); White Blood Count 7.1 K/mm3 (4.8-10.8)
[2021-08-06 16:18] LABS: Chloride 116 mmol/L (98-107); Potassium 3.1 mmoL/L (3.5-5.1)
[2021-08-06 16:20] LABS: Blood Urea Nitrogen 22 mg/dl (9-20); Creatinine Clearance Estimated 64 mL/min (50-200); Estimated Glomerular Filt Rate 217 ml/min (>60); GFR (African American) 262 ML/MIN (>60)
[2021-08-06 16:21] LABS: Alanine Aminotransferase 8 U/L (12-78); Albumin Level 2.6 g/dl (3.5-5.0); Albumin/Globulin Ratio 0.8 (1.1-1.8); Alkaline Phosphatase 91 U/L (38-126); Anion Gap 9.1 mEq/L (5-15); Aspartate Amino Transferase 23 U/L (17-59); Bilirubin,Total 0.6 mg/dl (0.2-1.3); Calcium 8.4 mg/dl (8.4-10.2); Carbon Dioxide 35 mmol/L (22.0-30.0); Globulin 3.1 g/dL (1.3-3.2); Glucose 149 mg/dl (74-100); Total Protein,Serum 5.7 g/dl (6.3-8.2)
[2021-08-06 16:31] LABS: Hemoglobin 10.4 g/dL (14.1-18.0)
[2021-08-06 16:40] LABS: Sodium 157 mmol/L (136-145)
[2021-08-06 16:41] LABS: Troponin I < 0.01 ng/ml (0.00-0.034)
[2021-08-07 00:09] LABS: POC Glucose,Bedside 140 (70-110)
[2021-08-07 04:00] VITALS: BP 134/87; PULSE 66; RESP 20; TEMP 37.1; O2SAT 97
--- NOTE | 2021-08-07 04:29 | PC.NURSE ---
Pt was febrile x1 this shift. Tyenol administered. Other VSS. Pt is currently on 6L high flow O2. No complaints stated. Pt noted to have wheezing to lungs. FSBS within normal limits this shift. Pt is incontinent of urine x3 this shift. Turned and repositioned. Will continue to monitor.
[2021-08-07 04:35] LABS: POC Glucose,Bedside 124 (70-110)
[2021-08-07 05:00] VITALS: BMI 19.5
[2021-08-07 06:17] LABS: Anion Gap 7.9 mEq/L (5-15); Blood Urea Nitrogen 18 mg/dl (9-20); Calcium 8.3 mg/dl (8.4-10.2); Carbon Dioxide 34 mmol/L (22.0-30.0); Chloride 118 mmol/L (98-107); Creatinine Clearance Estimated 69 mL/min (50-200); Estimated Glomerular Filt Rate 167 ml/min (>60); GFR (African American) 203 ML/MIN (>60); Glucose 123 mg/dl (74-100)
[2021-08-07 06:21] LABS: Potassium 2.9 mmoL/L (3.5-5.1); Sodium 157 mmol/L (136-145)
--- NOTE | 2021-08-07 06:31 | PC.NURSE ---
Critical lab values reported to . Sodium 157. Potasssium 2.9. New orders received.
[2021-08-07 08:00] VITALS: BP 125/64; PULSE 89; PULSE 90; RESP 20; TEMP 36.6; O2SAT 95
--- NOTE | 2021-08-07 08:39 | HMH.ACPN2 ---
Internal Medicine - PN: Subj *Date: 08/07/21 *Time: 08:39 Interval history: pt laying in bed. Exam Vital signs and Labs for Last 24 Hours: Temp Pulse Resp BP Pulse Ox 98.7 F 66 20 134/87 97 08/07/21 04:00 08/07/21 04:00 08/07/21 04:00 08/07/21 04:00 08/07/21 04:00 Laboratory Results - last 24 hr 08/06/21 09:15: WBC 7.7, RBC 3.79 L, Hgb 11.5 L, Hct 37.2 L, MCV 98.0 H, MCH 30.3, MCHC 30.9 L, RDW 15.1, Plt Count 330, MPV 8.3, Neut % (Auto) 78.3, Lymph % (Auto) 15.1, [place] % (Auto) 5.8, Eos % (Auto) 0.6, Baso % (Auto) 0.2, Neut # (Auto) 6.0, Lymph # (Auto) 1.2, [place] # (Auto) 0.5, Eos # (Auto) 0.0, Baso # (Auto) 0.0 08/06/21 09:15: Sodium 159 H*, Potassium 2.8 L*, Chloride 116 H, Carbon Dioxide 37 H, Anion Gap 8.8, BUN 20, Creatinine 0.60 L, Estimated Creat Clear 86, Estimated GFR 136, Est GFR ( Amer) 164, Glucose 144 H, Calcium 8.7, Total Bilirubin 0.4, AST 21, ALT 7 L, Alkaline Phosphatase 100, Troponin I < 0.01, Total Protein 6.1 L, Albumin 2.9 L, Globulin 3.2, Albumin/Globulin Ratio 0.9 L 08/06/21 09:15: Lactate 1.2 08/06/21 09:15: SARS-CoV-2 (PCR) Not detected, Influenza A Untype (PCR) Not detected, Influenza Type B (PCR) Not detected 08/06/21 10:40: VBG pH 7.42 H, VBG pCO2 42.0, VBG pO2 67.0 H, VBG HCO3 26.6, VBG Total CO2 27.9 H, VBG O2 Saturation 92.8 H, VBG Base Excess 2.2 08/06/21 12:15: Troponin I < 0.01 08/06/21 13:09: WBC Cancelled, Corrected WBC Cancelled, RBC Cancelled, Hgb Cancelled, Hct Cancelled, MCV Cancelled, MCH Cancelled, MCHC Cancelled, RDW Cancelled, Plt Count Cancelled, MPV Cancelled, Neut % (Auto) Cancelled, Lymph % (Auto) Cancelled, [place] % (Auto) Cancelled, Eos % (Auto) Cancelled, Baso % (Auto) Cancelled, Neut # (Auto) Cancelled, Lymph # (Auto) Cancelled, [place] # (Auto) Cancelled, Eos # (Auto) Cancelled, Baso # (Auto) Cancelled 08/06/21 13:09: Sodium Cancelled, Potassium Cancelled, Chloride Cancelled, Carbon Dioxide Cancelled, Anion Gap Cancelled, BUN Cancelled, Creatinine Cancelled, Estimated Creat Clear Cancelled, Estimated GFR Cancelled, Est GFR ( Amer) Cancelled, Glucose Cancelled, Calcium Cancelled, Total Bilirubin Cancelled, AST Cancelled, ALT Cancelled, Alkaline Phosphatase Cancelled, Total Protein Cancelled, Albumin Cancelled, Globulin Cancelled, Albumin/Globulin Ratio Cancelled 08/06/21 13:09: Lactate 0.8 08/06/21 15:50: Troponin I < 0.01 08/06/21 15:50: WBC 7.1, RBC 3.41 L, Hgb 10.4 L, Hct 33.4 L, MCV 98.0 H, MCH 30.6, MCHC 31.2 L, RDW 15.5, Plt Count 269, MPV 9.4, Neut % (Auto) 76.5, Lymph % (Auto) 17.1, [place] % (Auto) 5.1, Eos % (Auto) 1.1, Baso % (Auto) 0.3, Neut # (Auto) 5.4, Lymph # (Auto) 1.2, [place] # (Auto) 0.4, Eos # (Auto) 0.1, Baso # (Auto) 0.0 08/06/21 15:50: Sodium 157 H*, Potassium 3.1 L, Chloride 116 H, Carbon Dioxide 35 H, Anion Gap 9.1, BUN 22 H, Creatinine 0.40 L D, Estimated Creat Clear 64, Estimated GFR 217, Est GFR ( Amer) 262 D, Glucose 149 H, Calcium 8.4, Total Bilirubin 0.6, AST 23, ALT 8 L, Alkaline Phosphatase 91, Total Protein 5.7 L, Albumin 2.6 L D, Globulin 3.1, Albumin/Globulin Ratio 0.8 L 08/06/21 23:52: POC Glucose 140 H 08/07/21 04:18: POC Glucose 124 H 08/07/21 05:37: Sodium 157 H*, Potassium 2.9 L*, Chloride 118 H, Carbon Dioxide 34 H, Anion Gap 7.9, BUN 18, Creatinine 0.50 L D, Estimated Creat Clear 69, Estimated GFR 167, Est GFR ( Amer) 203 D, Glucose 123 H, Calcium 8.3 L I & O for Last 24 hours: Intake & Output 08/04/21 08/05/21 08/06/21 08/07/21 11:59 11:59 11:59 11:59 Intake Total 1354 / 1354 Balance 1354 / 1354 Weight 180 lb 144 lb 3 oz - Constitutional no acute distress, chronically ill appearing - *Routine HEENT Exam Head: Present: normocephalic Eye: Present: PERRL ENT: Present: mucous membranes moist - *Routine Neck Exam Present: supple. Absent: lymphadenopathy - *Routine Respiratory Exam Present: rhonchi - *Routine Cardiovascular Exam Present: RRR - *Routine Abdominal Exam Present: soft, normoactive
[2021-08-07 08:49] LABS: MANUAL DIFFERENTIAL MANUAL DIFFERENTIAL (MANUAL DIFF)
[2021-08-07 09:03] LABS: Basophils % 0.4 % (0.1-2.0); Eosinophils # 0.1 K/mm3 (0.0-0.4); Hematocrit 33.5 % (42.0-52.0); Lymphocytes # 0.9 K/mm3 (0.7-4.5); Lymphocytes % 17.6 % (10-50); Mean Platelet Volume 9.9 fl (7.4-10.4); Monocytes # 0.2 K/mm3 (0.1-1.0); Monocytes % 3.7 % (1.7-9.3); Neutrophils # 4.1 K/mm3 (1.8-7.8); Neutrophils % 76.5 % (37.0-80.0); Platelet Count 220 K/mm3 (142-424); Red Blood Count 3.35 M/mm3 (4.60-6.20); Red Cell Distribution Width 15.4 % (11.5-17.5); White Blood Count 5.4 K/mm3 (4.8-10.8)
--- NOTE | 2021-08-07 10:52 | HMH.PTWOUND ---
Rehab Inpt Wound Evaluation Rehab IP Wound Evaluation Start: 08/06/21 13:46 Freq: ONCE Status: Active Protocol: Document 08/07/21 10:19 [email or web address] (Rec: 08/07/21 10:37 [email or web address] [id number]) Rehab PT Wound Assessment Patient Status Premedicated Prior to Dressing Change Yes Subjective Subjective Pt reports he is okay today - repoorts no c/o pain in L ankle wound but does reports soreness in sacral wound Pt uses wound vac at snf for sacral wound Wound Left Lateral Ankle Wound Type Pressure Ulcer Is This a Chronic Wound Yes Wound Staging Stage II Query Text:Stage I - Unbroken, red skin, no blanching. Stage II - Skin broken, superficial skin loss involving epidermis alone or also dermis. Partial loss of skin layers. Stage III - Pressure area involves epidermis, dermis and subcutaneous tissue, full thickness skin loss. Stage IV - Pressure area involves epidermis, subcutaneous tissue, bone and other supportive tissue. Full thickness skin loss with extensive destruction of underlying tissue and structures. Wound Length (cm) 1.0 Wound Width (cm) 1.0 Wound Bed Appearance [place] Percentage Granulated (%) 100 Wound Margins Description Indistinct Surrounding Tissue Appearance [place] Wound Drainage Description None Drainage Amount None Drainage Odor No Odor Dressing Status Dry & Intact Primary Dressing Absorbant Pad Comment optifoam Dressing Change Date 08/07/21 Medial Sacrum Wound Type Pressure Ulcer Is This a Chronic Wound Yes Wound Staging Stage IV Query Text:Stage I - Unbroken, red skin, no blanching. Stage II - Skin broken, superficial skin loss involving epidermis alone or also dermis. Partial loss of skin layers. Stage III - Pressure area involves epidermis, dermis and subcutaneous tissue, full thickness skin loss. Stage IV - Pressure area involves epidermis, subcutaneous tissue, bone and other supportive tissue. Full thickness skin loss with extensive destruction of underlying tissue and structures. Wound Length (cm) 4.5 Wound Width (cm) 3.5 Wound Bed Appearance
[2021-08-07 12:00] VITALS: BP 115/66; PULSE 80; RESP 18; TEMP 37.2; O2SAT 100
[2021-08-07 12:13] LABS: POC Glucose,Bedside 224 (70-110)
[2021-08-07 13:04] LABS: Eosinophils % 1 % (0-3); Hypochromasia 2+; Lymphocytes % 18 % (10-50); Monocytes % 5 % (2-9); Neutrophils % 73 % (42-76); Platelet Estimate Normal; Total Cells Counted 100
[2021-08-07 15:18] VITALS: BMI 19.4
[2021-08-07 15:52] VITALS: BP 121/77; PULSE 74; RESP 25; TEMP 37; O2SAT 97
[2021-08-07 16:00] VITALS: PULSE 70
[2021-08-07 17:11] LABS: POC Glucose,Bedside 134 (70-110)
--- NOTE | 2021-08-07 18:10 | HMH.SLDYSPHA ---
Speech & Language Evaluation Speech/Language Dysphagia Evaluation Start: 08/07/21 13:43 Freq: ONCE Status: Active Protocol: Document 08/07/21 13:43 CMAY (Rec: 08/07/21 15:04 CMAY [id number]) Dysphagia Assess/Goals/Plan Assessment Date of Evaluation: 08/07/21 Evaluation Type Initial Certification Assessment/Problems Dysphagia; Past CVA Does Patient Qualify for Service No Qualify/Failure Comment Patient does not qualify for ST services at this time based on the results of today's evaluation. Recommendations PHYSICIAN CERTIFICATION: The specified therapy services are required, authorized, and reviewed every 30 days. Diet Recommendations If comfort care: Pureed and HTL SL Swallow Guidelines Assist w/all meals,High aspiration risk,Oral care pre/ post meals Crush Meds Crush all meds Dysphagia Swallow Precautions/Strategies Sitting Upright (90 deg), Liquids from Straw,Liquids from Spoon Plan Pt/Guardian verbally ack understanding Yes of dx/prognosis/goals G -code Required No Education Instructions provided Education provided to patient regarding swallowing safety strategies to implement such as sitting upright during intake and sitting upright for at least 30 minutes following intake. Pt/Caregiver able to recall information Reinforcement needed Reinforcement needed Yes Speech & Language HPI History Present Illness Description of Patient Problem Patient had a past CVA and is currently on a pureed diet with honey thick liquids at the [facility] he residues at. Pt/Caregiver Concerns Concerns of coughing/choking Rehab Services Assessed Speech therapy Language Primary Language [place]ammarinese [place] Lang/Spoken in Home Sammarinese General Information General Current Food Consistancy Pureed,Honey Liquids Dentition Poor Dentition Oxygen Status Nasal Cannula Patient Orientation Person Ability to Follow Directions Good Communication Ability Mild Impairment Dysphagia:Food Presentation Evaluation Food Type Pureed,Liquid,Pudding Normal/Thin Liquid Response Coughing after swallow,Wet voice [place] Consistency Liquid Response Multiple swallow attempts,
[2021-08-07 20:00] VITALS: BP 103/66; PULSE 86; PULSE 90; RESP 18; TEMP 36.8; O2SAT 97
[2021-08-08] VITALS (8 sets, daily range): BP systolic 100–119; BP diastolic 59–70; PULSE 60–94; RESP 16–21; TEMP 36.6–37.1; O2SAT 91–100; BMI 19.8
[2021-08-08 00:03] LABS: Vancomycin,Trough 20.9 ug/mL (5.0-10.0)
--- NOTE | 2021-08-08 00:07 | HMH.PHAINT ---
CALLED PHARMACY [facility] 20.9; SAULO FLORES WITH ORDERS RECEIVED TO GO AHEAD AND GIVE THE DOSE OF VANCOMYCIN SCHEDULED AT 2300, REPEATED AND VERIFIED
[2021-08-08 03:14] LABS: MANUAL DIFFERENTIAL MANUAL DIFFERENTIAL (MANUAL DIFF)
[2021-08-08 03:22] LABS: Basophils % 0.2 % (0.1-2.0); Eosinophils # 0.1 K/mm3 (0.0-0.4); Eosinophils % 1.8 % (0.1-12.0); Hematocrit 32.3 % (42.0-52.0); Hemoglobin 10.1 g/dL (14.1-18.0); Lymphocytes # 1.3 K/mm3 (0.7-4.5); Lymphocytes % 20.8 % (10-50); Mean Corpuscular HGB Conc 31.1 g/dL (31.8-35.4); Mean Corpuscular Hemoglobin 30.7 pg (27.0-31.2); Mean Corpuscular Volume 98.5 fl (80-94); Mean Platelet Volume 8.9 fl (7.4-10.4); Monocytes # 0.3 K/mm3 (0.1-1.0); Monocytes % 4.3 % (1.7-9.3); Neutrophils # 4.5 K/mm3 (1.8-7.8); Neutrophils % 72.9 % (37.0-80.0); Platelet Count 226 K/mm3 (142-424); Red Blood Count 3.28 M/mm3 (4.60-6.20); Red Cell Distribution Width 15.3 % (11.5-17.5); White Blood Count 6.2 K/mm3 (4.8-10.8)
[2021-08-08 03:59] LABS: Blood Urea Nitrogen 13 mg/dl (9-20); Carbon Dioxide 30 mmol/L (22.0-30.0); Chloride 118 mmol/L (98-107); Creatinine Clearance Estimated 69 mL/min (50-200); Estimated Glomerular Filt Rate 217 ml/min (>60); GFR (African American) 262 ML/MIN (>60); Glucose 142 mg/dl (74-100)
[2021-08-08 04:04] LABS: Vancomycin,Peak 45.1 ug/ml (11-39)
[2021-08-08 04:09] LABS: Sodium 151 mmol/L (136-145)
[2021-08-08 04:26] LABS: Eosinophils % 4 % (0-3); Lymphocytes % 20 % (10-50); Neutrophils % 76 % (42-76); Platelet Estimate Normal; Total Cells Counted 100
[2021-08-08 04:27] LABS: Macrocytosis 1+
--- NOTE | 2021-08-08 08:51 | HMH.ACPN2 ---
Internal Medicine - PN: Subj *Date: 08/08/21 *Time: 08:51 Interval history: awake with no specific c/o Exam Vital signs and Labs for Last 24 Hours: Temp Pulse Resp BP Pulse Ox 97.9 F 68 21 119/69 100 08/08/21 08:00 08/08/21 08:00 08/08/21 08:00 08/08/21 08:00 08/08/21 08:00 Laboratory Results - last 24 hr 08/06/21 13:09: WBC 5.0 D, Corrected WBC [employer]ist, RBC 2.40 L D, Hgb 7.3 L D, Hct 24.3 L, MCV 101.2 H, MCH 30.3, MCHC 29.9 L, RDW 15.5, Plt Count 190 D, MPV 9.3, Neut % (Auto) 76.3, Lymph % (Auto) 17.8, [place] % (Auto) 5.0, Eos % (Auto) 0.6, Baso % (Auto) 0.3, Neut # (Auto) 3.8, Lymph # (Auto) 0.9, [place] # (Auto) 0.3, Eos # (Auto) 0.0, Baso # (Auto) 0.0 08/06/21 13:09: Sodium 133 L, Potassium 1.9 L* D, Chloride 97 L, Carbon Dioxide 21 L, Anion Gap 16.9 H, BUN 13 D, Creatinine 0.30 L D, Estimated Creat Clear 64, Estimated GFR 302, Est GFR ( Amer) 365 D, Glucose 95 D, Calcium 5.3 L* D, Total Bilirubin 0.8, AST 14 L D, ALT < 4 L D, Alkaline Phosphatase 37 L, Total Protein 3.7 L D, Albumin 1.7 L D, Globulin 2.0, Albumin/Globulin Ratio 0.9 L 08/06/21 15:50: WBC 7.1 D, RBC 3.41 L D, Hgb 10.4 L D, Hct 33.4 L, MCV 98.0 H, MCH 30.6, MCHC 31.2 L, RDW 15.5, Plt Count 269 D, MPV 9.4, Neut % (Auto) 76.5, Lymph % (Auto) 17.1, [place] % (Auto) 5.1, Eos % (Auto) 1.1, Baso % (Auto) 0.3, Neut # (Auto) 5.4, Lymph # (Auto) 1.2, [place] # (Auto) 0.4, Eos # (Auto) 0.1, Baso # (Auto) 0.0 08/06/21 15:50: Sodium 157 H*, Potassium 3.1 L D, Chloride 116 H, Carbon Dioxide 35 H, Anion Gap 9.1, BUN 22 H D, Creatinine 0.40 L D, Estimated Creat Clear 64, Estimated GFR 217, Est GFR ( Amer) 262 D, Glucose 149 H D, Calcium 8.4, Total Bilirubin 0.6, AST 23 D, ALT 8 L D, Alkaline Phosphatase 91, Total Protein 5.7 L D, Albumin 2.6 L D, Globulin 3.1, Albumin/Globulin Ratio 0.8 L 08/07/21 05:37: WBC 5.4, RBC 3.35 L, Hgb 10.0 L, Hct 33.5 L, MCV 100.0 H, MCH 30.0, MCHC 30.0 L, RDW 15.4, Plt Count 220, MPV 9.9, Neut % (Auto) 76.5, Lymph % (Auto) 17.6, [place] % (Auto) 3.7, Eos % (Auto) 2.0, Baso % (Auto) 0.4, Neut # (Auto) 4.1, Lymph # (Auto) 0.9, [place] # (Auto) 0.2, Eos # (Auto) 0.1, Baso # (Auto) 0.0, Total Counted 100, Neutrophils % (Manual) 73, Band Neutrophils % 2.0, Lymphocytes % (Manual) 18, Monocytes % (Manual) 5, Eosinophils % (Manual) 1, Basophils % (Manual) 1.0, Platelet Estimate Normal, Hypochromasia 2+ 08/07/21 12:03: POC Glucose 224 H 08/07/21 17:01: POC Glucose 134 H 08/07/21 22:56: Vancomycin Trough 20.9 H 08/08/21 03:10: Vancomycin Peak 45.1 H* 08/08/21 03:10: Sodium 151 H*, Potassium 3.0 L, Chloride 118 H, Carbon Dioxide 30, Anion Gap 6.0, BUN 13 D, Creatinine 0.40 L, Estimated Creat Clear 69, Estimated GFR 217, Est GFR ( Amer) 262 D, Glucose 142 H, Calcium 8.0 L 08/08/21 03:10: WBC 6.2, RBC 3.28 L, Hgb 10.1 L, Hct 32.3 L, MCV 98.5 H, MCH 30.7, MCHC 31.1 L, RDW 15.3, Plt Count 226, MPV 8.9, Neut % (Auto) 72.9, Lymph % (Auto) 20.8, [place] % (Auto) 4.3, Eos % (Auto) 1.8, Baso % (Auto) 0.2, Neut # (Auto) 4.5, Lymph # (Auto) 1.3, [place] # (Auto) 0.3, Eos # (Auto) 0.1, Baso # (Auto) 0.0, Total Counted 100, Neutrophils % (Manual) 76, Lymphocytes % (Manual) 20, Eosinophils % (Manual) 4 H, Platelet Estimate Normal, Macrocytosis 1+ I & O for Last 24 hours: Intake & Output 08/05/21 08/06/21 08/07/21 08/08/21 11:59 11:59 11:59 11:59 Intake Total 1594 / 1594 2400 / 2400 Balance 1594 / 1594 2400 / 2400 Weight 180 lb 144 lb 3 oz 146 lb 11.2 oz - Constitutional no acute distress, chronically ill appearing - *Routine HEENT Exam Head: Present: hematoma Eye: Present: EOMI, PERRL ENT: Present: mucous membranes dry - *Routine Neck Exam Absent: JVD - *Routine Respiratory Exam Present: decreased breath sounds - *Routine Cardiovascular Exam Present: RRR - *Routine Abdominal Exam Present: soft - *Routine Extremities Exam Absent: calf tenderness - *Routine Skin Exam Absent: petechiae - *Routine Neurological Exam chronic changes
--- NOTE | 2021-08-08 09:00 | HMH.PHACONS ---
- Pharmacy Consult Date: 08/08/21 Time: 09:00 Referring provider: DIANA Reason for Consult:: VANCOMYCIN MANAGEMENT Allergies and ADEs:: Allergies Allergy/AdvReac Type Severity Reaction Status Date / Time No Known Allergies Allergy Verified 05/23/21 21:28 Home Medications:: Home Medications Medication Instructions Recorded Confirmed Type risperiDONE [Risperidone] 1 mg PO HS 08/12/20 08/06/21 History Benztropine Mesylate [Cogentin 1mg 1 mg PO HS 04/12/21 08/06/21 History tablet] Linagliptin [Tradjenta 5mg tablet] 5 mg PO DAILYDM 04/12/21 08/06/21 History Metformin HCl [Glucophage 500mg 500 mg PO BIDWMEAL 04/12/21 08/06/21 History Tablet] glipiZIDE [Glucotrol 5mg tablet] 5 mg PO BIDWMEAL 04/12/21 08/06/21 History lisinopriL [Zestril 10mg Tab] 10 mg PO DAILY 04/12/21 08/06/21 History Omeprazole [Omeprazole 20mg 20 mg PO DAILY 07/02/21 08/06/21 History Capsule] Sertraline HCl [Zoloft 100mg 100 mg PO DAILY 07/02/21 08/06/21 History tablet] Divalproex Sodium [Depakote] 750 mg PO BID 07/03/21 08/06/21 History Docusate Sodium [Docusate Sod 100 mg PO BID 08/06/21 08/06/21 History Liquid 100mg/10mL udc] Ipratropium/Albuterol Sulfate 3 ml IH Q4HP PRN 08/06/21 08/06/21 History [Iprat-Albut 0.5-3(2.5) mg/3 ml] predniSONE [Prednisone 20mg 20 mg PO DAILY 08/06/21 08/06/21 History Tab] Height: 1.83 m Weight: 66.542 kg Laboratory Results:: Laboratory Results - last 24 hr 08/06/21 13:09: WBC 5.0 D, Corrected WBC [employer], RBC 2.40 L D, Hgb 7.3 L D, Hct 24.3 L, MCV 101.2 H, MCH 30.3, MCHC 29.9 L, RDW 15.5, Plt Count 190 D, MPV 9.3, Neut % (Auto) 76.3, Lymph % (Auto) 17.8, [place] % (Auto) 5.0, Eos % (Auto) 0.6, Baso % (Auto) 0.3, Neut # (Auto) 3.8, Lymph # (Auto) 0.9, [place] # (Auto) 0.3, Eos # (Auto) 0.0, Baso # (Auto) 0.0 08/06/21 13:09: Sodium 133 L, Potassium 1.9 L* D, Chloride 97 L, Carbon Dioxide 21 L, Anion Gap 16.9 H, BUN 13 D, Creatinine 0.30 L D, Estimated Creat Clear 64, Estimated GFR 302, Est GFR ( Amer) 365 D, Glucose 95 D, Calcium 5.3 L* D, Total Bilirubin 0.8, AST 14 L D, ALT < 4 L D, Alkaline Phosphatase 37 L, Total Protein 3.7 L D, Albumin 1.7 L D, Globulin 2.0, Albumin/Globulin Ratio 0.9 L 08/06/21 15:50: WBC 7.1 D, RBC 3.41 L D, Hgb 10.4 L D, Hct 33.4 L, MCV 98.0 H, MCH 30.6, MCHC 31.2 L, RDW 15.5, Plt Count 269 D, MPV 9.4, Neut % (Auto) 76.5, Lymph % (Auto) 17.1, [place] % (Auto) 5.1, Eos % (Auto) 1.1, Baso % (Auto) 0.3, Neut # (Auto) 5.4, Lymph # (Auto) 1.2, [place] # (Auto) 0.4, Eos # (Auto) 0.1, Baso # (Auto) 0.0 08/06/21 15:50: Sodium 157 H*, Potassium 3.1 L D, Chloride 116 H, Carbon Dioxide 35 H, Anion Gap 9.1, BUN 22 H D, Creatinine 0.40 L D, Estimated Creat Clear 64, Estimated GFR 217, Est GFR ( Amer) 262 D, Glucose 149 H D, Calcium 8.4, Total Bilirubin 0.6, AST 23 D, ALT 8 L D, Alkaline Phosphatase 91, Total Protein 5.7 L D, Albumin 2.6 L D, Globulin 3.1, Albumin/Globulin Ratio 0.8 L 08/07/21 05:37: WBC 5.4, RBC 3.35 L, Hgb 10.0 L, Hct 33.5 L, MCV 100.0 H, MCH 30.0, MCHC 30.0 L, RDW 15.4, Plt Count 220, MPV 9.9, Neut % (Auto) 76.5, Lymph % (Auto) 17.6, [place] % (Auto) 3.7, Eos % (Auto) 2.0, Baso % (Auto) 0.4, Neut # (Auto) 4.1, Lymph # (Auto) 0.9, [place] # (Auto) 0.2, Eos # (Auto) 0.1, Baso # (Auto) 0.0, Total Counted 100, Neutrophils % (Manual) 73, Band Neutrophils % 2.0, Lymphocytes % (Manual) 18, Monocytes % (Manual) 5, Eosinophils % (Manual) 1, Basophils % (Manual) 1.0, Platelet Estimate Normal, Hypochromasia 2+ 08/07/21 12:03: POC Glucose 224 H 08/07/21 17:01: POC Glucose 134 H 08/07/21 22:56: Vancomycin Trough 20.9 H 08/08/21 03:10: Vancomycin Peak 45.1 H* 08/08/21 03:10: Sodium 151 H*, Potassium 3.0 L, Chloride 118 H, Carbon Dioxide 30, Anion Gap 6.0, BUN 13 D, Creatinine 0.40 L, Estimated Creat Clear 69, Estimated GFR 217, Est GFR ( Amer) 262 D, Glucose 142 H, Calcium 8.0 L 08/08/21 03:10: WBC 6.2, RBC 3.28 L, Hgb 10.1 L, Hct 32.3 L, MCV 98.5 H, MCH 30.7, MCHC 31.1 L,
[2021-08-08 11:38] LABS: POC Glucose,Bedside 121 (70-110)
[2021-08-08 17:05] LABS: POC Glucose,Bedside 119 (70-110)
--- NOTE | 2021-08-08 17:36 | PC.NURSE ---
No acute changes. Remains on 6 L O2 per nasal cannula. Lungs coarse throughout. Oral care provided. Pt is total care, turned Q2H. Dressing to sacrum changed per MD orders. Pt incontinent of bowel and bladder this shift. No concerns voiced. Currently resting.
[2021-08-08 18:28] LABS: POC Glucose,Bedside 65 (70-110)
[2021-08-09] VITALS (9 sets, daily range): BP systolic 113–134; BP diastolic 69–84; PULSE 50–90; RESP 16–20; TEMP 36.5–37.2; O2SAT 91–100
[2021-08-09 00:59] LABS: POC Glucose,Bedside 90 (70-110)
--- NOTE | 2021-08-09 03:32 | PC.NURSE ---
PT IS ALERT THIS SHIFT, ABLE TO ANSWER QUESTIONS AND FOLLOW COMMANDS. TOLERATING 6LNC WELL. PT REMAINS DEPENDENT OF CARE. X2 ASSIST. TURNED Q2H THIS SHIFT. INCONTINENT TO BOWEL AND BLADDER, KEPT CLEAN AND DRY. DRESSING TO BOTTOM CDI. TOLERATES SWALLOWING NIGHT TIMES MEDS WELL. NO C/O THUS FAR. VSS WILL CONTINUE TO MONITOR.
--- NOTE | 2021-08-09 06:44 | PC.NURSE ---
CHANGED PT DRESSING. DRESSED WET TO DRY. SLIGHT SEROSANG DRAINAGE UPON REMOVAL. PT TOLERATING DRESSING CHANGE WELL. CONTINUING TO BE TURNED Q2H.
[2021-08-09 08:29] LABS: Chloride 117 mmol/L (98-107)
[2021-08-09 08:32] LABS: Anion Gap 7.7 mEq/L (5-15); Blood Urea Nitrogen 10 mg/dl (9-20); Carbon Dioxide 28 mmol/L (22.0-30.0); Creatinine Clearance Estimated 70 mL/min (50-200); Estimated Glomerular Filt Rate 217 ml/min (>60); GFR (African American) 262 ML/MIN (>60)
[2021-08-09 08:33] LABS: Glucose 105 mg/dl (74-100)
[2021-08-09 08:47] LABS: Sodium 150 mmol/L (136-145)
[2021-08-09 08:48] LABS: Potassium 2.7 mmoL/L (3.5-5.1)
--- NOTE | 2021-08-09 08:53 | XR_ITS ---
PROCEDURE: XR CHEST PORTABLE CLINICAL HISTORY: has pneumonia COMPARISON: CR XR CHEST PORTABLE from 04/16/2021 CR XR CHEST PORTABLE from 07/02/[address] ANGIO CHEST PE PROTOCOL from 07/03/2021 CR XR CHEST PORTABLE from 08/06/2021 FINDINGS: The cardiomediastinal silhouette and pulmonary vascularity are within normal limits. Airspace disease once again noted in the right lower lobes which appears somewhat worse from the previous exam. The left lung is clear. No acute bony abnormalities. IMPRESSION: Right lower lobe pneumonia which appears worse Dictated by: Josias Thacker MD 08/09/2021 12:25 Josias Thacker MD in [facility] 08/09/2021 12:25
[2021-08-09 08:57] LABS: MANUAL DIFFERENTIAL MANUAL DIFFERENTIAL (MANUAL DIFF)
--- NOTE | 2021-08-09 08:57 | HMH.ACPN2 ---
Internal Medicine - PN: Subj *Date: 08/09/21 *Time: 08:57 Interval history: pt with cough and looks ok - no specific c/o -labs abn - Exam Vital signs and Labs for Last 24 Hours: Temp Pulse Resp BP Pulse Ox 98.0 F 69 20 125/73 98 08/09/21 07:52 08/09/21 07:52 08/09/21 07:52 08/09/21 07:52 08/09/21 07:52 Laboratory Results - last 24 hr 08/08/21 05:17: POC Glucose 119 H 08/08/21 11:21: POC Glucose 121 H 08/08/21 18:08: POC Glucose 65 L 08/09/21 00:09: POC Glucose 90 08/09/21 08:15: Sodium 150 H, Potassium 2.7 L*, Chloride 117 H, Carbon Dioxide 28, Anion Gap 7.7, BUN 10, Creatinine 0.40 L, Estimated Creat Clear 70, Estimated GFR 217, Est GFR ( Amer) 262, Glucose 105 H, Calcium 8.0 L I & O for Last 24 hours: Intake & Output 08/06/21 08/07/21 08/08/21 08/09/21 11:59 11:59 11:59 11:59 Intake Total 1594 / 1594 2400 / 2400 1250 / 1250 Balance 1594 / 1594 2400 / 2400 1250 / 1250 Weight 180 lb 144 lb 3 oz 146 lb 11.2 oz Microbiology Reports for the Last 24 Hours: Microbiology 08/06/21 09:15 Blood Blood Culture - Preliminary NO GROWTH AFTER 48 HOURS 08/06/21 09:15 Blood Blood Culture - Preliminary NO GROWTH AFTER 48 HOURS - Constitutional no acute distress, chronically ill appearing - *Routine HEENT Exam Head: Present: normocephalic Eye: Present: EOMI, PERRL ENT: Present: mucous membranes dry - *Routine Neck Exam Absent: JVD - *Routine Respiratory Exam Present: decreased breath sounds, rhonchi - *Routine Cardiovascular Exam Present: RRR - *Routine Abdominal Exam Present: soft - *Routine Extremities Exam Absent: calf tenderness - *Routine Skin Exam Absent: rash - *Routine Neurological Exam Present: alert, CN II-XII intact - Routine Psychiatric Exam Present: unable to assess Assessment and Plan (1) Decubitus ulcer of sacral region, stage 4 Status: Acute Category: Medical Code(s): L89.154 - Pressure ulcer of sacral region, stage 4 (2) PNA (pneumonia) Status: Acute Qualifiers: Pneumonia type: due to unspecified organism Laterality: right Lung location: lower lobe of lung Qualified Code(s): J18.9 - Pneumonia, unspecified organism Category: Medical Code(s): J18.9 - Pneumonia, unspecified organism (3) Acute respiratory failure with hypoxia Status: Acute Category: Medical Code(s): J96.01 - Acute respiratory failure with hypoxia (4) Severe sepsis with acute organ dysfunction Status: Acute Category: Medical Code(s): A41.9 - Sepsis, unspecified organism; R65.20 - Severe sepsis without septic shock (5) Hypernatremia Status: Acute Category: Medical Code(s): E87.0 - Hyperosmolality and hypernatremia (6) Hypokalemia Status: Acute Category: Medical Code(s): E87.6 - Hypokalemia (7) Malnutrition Status: Acute Category: Medical Code(s): E46 - Unspecified protein-calorie malnutrition (8) Sacral decubitus ulcer, stage II Status: Acute Category: Medical Code(s): L89.152 - Pressure ulcer of sacral region, stage 2 (9) Dysphagia Status: Acute Qualifiers: Dysphagia type: unspecified Qualified Code(s): R13.10 - Dysphagia, unspecified Category: Medical Code(s): R13.10 - Dysphagia, unspecified - Assessment and plan all Dx Assessment and Plan for all problems:: will adjust ivf and obtain cxr - still working on hospice care at this time
[2021-08-09 09:01] LABS: Basophils % 0.2 % (0.1-2.0); Eosinophils % 0.7 % (0.1-12.0); Hematocrit 29.7 % (42.0-52.0); Hemoglobin 9.3 g/dL (14.1-18.0); Lymphocytes % 15.3 % (10-50); Mean Corpuscular HGB Conc 31.5 g/dL (31.8-35.4); Mean Corpuscular Hemoglobin 29.9 pg (27.0-31.2); Mean Corpuscular Volume 94.8 fl (80-94); Mean Platelet Volume 8.8 fl (7.4-10.4); Monocytes # 0.2 K/mm3 (0.1-1.0); Monocytes % 3.7 % (1.7-9.3); Neutrophils # 5.1 K/mm3 (1.8-7.8); Neutrophils % 80.1 % (37.0-80.0); Platelet Count 242 K/mm3 (142-424); Red Blood Count 3.13 M/mm3 (4.60-6.20); Red Cell Distribution Width 15.2 % (11.5-17.5); White Blood Count 6.4 K/mm3 (4.8-10.8)
--- NOTE | 2021-08-09 09:39 | HMH.ACPN2 ---
Internal Medicine - PN: Subj *Date: 08/09/21 *Time: 10:31 Interval history: I was asked to see Mr. Sahu today given his chronic debility, history of CVA, recurring pneumonias, CODE STATUS, and desire for patient to continue to eat. On interview patient is very clear that he does not want a feeding tube. In reviewing his chart he has significant electrolyte abnormalities including hyponatremia, hypokalemia, presented in what appears to be sepsis secondary to pneumonia. Pneumonia most likely from aspiration. Discussed with Mr. Sahu that he will likely continue to aspirate or inhale food as long as he eats. He states he understands but enjoys eating. Reviewed labs and imaging. -Febrile and hypotensive on admission; hypoxemic. Hypernatremia, hypo-kalemia, hyperchloremia indicative of dehydration with significant free water deficit. Overall met sepsis criteria on admission. -Chronic conditions including CVA with residual left-sided deficits, seizure disorder, diabetes, hypertension; pressure ulcers from immobility and bedbound status; protein calorie malnutrition -This is his third admission in 5 months for pneumonia/respiratory failure Exam Vital signs and Labs for Last 24 Hours: Temp Pulse Resp BP Pulse Ox 98.0 F 69 20 125/73 98 08/09/21 07:52 08/09/21 07:52 08/09/21 07:52 08/09/21 07:52 08/09/21 07:52 Laboratory Results - last 24 hr 08/08/21 05:17: POC Glucose 119 H 08/08/21 11:21: POC Glucose 121 H 08/08/21 18:08: POC Glucose 65 L 08/09/21 00:09: POC Glucose 90 08/09/21 08:15: Sodium 150 H, Potassium 2.7 L*, Chloride 117 H, Carbon Dioxide 28, Anion Gap 7.7, BUN 10, Creatinine 0.40 L, Estimated Creat Clear 70, Estimated GFR 217, Est GFR ( Amer) 262, Glucose 105 H, Calcium 8.0 L 08/09/21 08:15: WBC 6.4, RBC 3.13 L, Hgb 9.3 L, Hct 29.7 L, MCV 94.8 H, MCH 29.9, MCHC 31.5 L, RDW 15.2, Plt Count 242, MPV 8.8, Neut % (Auto) 80.1 H, Lymph % (Auto) 15.3, [place] % (Auto) 3.7, Eos % (Auto) 0.7, Baso % (Auto) 0.2, Neut # (Auto) 5.1, Lymph # (Auto) 1.0, [place] # (Auto) 0.2, Eos # (Auto) 0.0, Baso # (Auto) 0.0 I & O for Last 24 hours: Intake & Output 08/06/21 08/07/21 08/08/21 08/09/21 23:59 23:59 23:59 23:59 Intake Total 1004 / 1004 2039 60 / 60 Balance 1004 / 1004 2039 60 / 60 Weight 60.98 kg 65 kg 66.542 kg Microbiology Reports for the Last 24 Hours: Microbiology 08/06/21 09:15 Blood Blood Culture - Preliminary NO GROWTH AFTER 48 HOURS 08/06/21 09:15 Blood Blood Culture - Preliminary NO GROWTH AFTER 48 HOURS - Constitutional mild distress, thin, cachectic, cooperative - *Routine HEENT Exam Head: Present: normocephalic Eye: Present: EOMI, PERRL ENT: Present: mucous membranes moist - *Routine Neck Exam Present: supple. Absent: lymphadenopathy - Routine Chest/Breast/Axilla Exam Comments: Prominent ribs - *Routine Respiratory Exam Present: crackles. Absent: wheezes Comments: Good air movement bilaterally, crackles right posterior lung field - *Routine Cardiovascular Exam Present: RRR - *Routine Abdominal Exam Present: soft, normoactive bowel sounds. Absent: tenderness Comments: Scaphoid - *Routine Extremities Exam Absent: cyanosis, clubbing, edema Comments: Sarcopenia with loss of skeletal muscle, thin legs - *Routine Skin Exam Present: warm. Absent: rash Comments: Sacral decubitus ulcer - *Routine Neurological Exam Present: alert Oriented to person and place, unable to move left upper extremity, mild dysarthria, lower extremities bilaterally weak left more than right. Strength 4/5 in right lower extremity, 3/5 left lower extremity. - Routine Psychiatric Exam Comments: Flat affect Assessment and Plan (1) Decubitus ulcer of sacral region, stage 4 Status: Acute Category: Medical Code(s): L89.154 - Pressure ulcer of sacral region, stage 4
--- NOTE | 2021-08-09 09:52 | HMH.ACPN ---
Internal Medicine - PN: Subj *Date: 08/09/21 *Time: 09:52 Exam Vital signs and Labs for Last 24 Hours: Temp Pulse Resp BP Pulse Ox 98.0 F 69 20 125/73 98 08/09/21 07:52 08/09/21 07:52 08/09/21 07:52 08/09/21 07:52 08/09/21 07:52 Laboratory Results - last 24 hr 08/08/21 05:17: POC Glucose 119 H 08/08/21 11:21: POC Glucose 121 H 08/08/21 18:08: POC Glucose 65 L 08/09/21 00:09: POC Glucose 90 08/09/21 08:15: Sodium 150 H, Potassium 2.7 L*, Chloride 117 H, Carbon Dioxide 28, Anion Gap 7.7, BUN 10, Creatinine 0.40 L, Estimated Creat Clear 70, Estimated GFR 217, Est GFR ( Amer) 262, Glucose 105 H, Calcium 8.0 L 08/09/21 08:15: WBC 6.4, RBC 3.13 L, Hgb 9.3 L, Hct 29.7 L, MCV 94.8 H, MCH 29.9, MCHC 31.5 L, RDW 15.2, Plt Count 242, MPV 8.8, Neut % (Auto) 80.1 H, Lymph % (Auto) 15.3, [place] % (Auto) 3.7, Eos % (Auto) 0.7, Baso % (Auto) 0.2, Neut # (Auto) 5.1, Lymph # (Auto) 1.0, [place] # (Auto) 0.2, Eos # (Auto) 0.0, Baso # (Auto) 0.0 I & O for Last 24 hours: Intake & Output 08/06/21 08/07/21 08/08/21 08/09/21 23:59 23:59 23:59 23:59 Intake Total 1004 / 1004 2039 60 / 60 Balance 1004 / 1004 2039 60 / 60 Weight 60.98 kg 65 kg 66.542 kg Microbiology Reports for the Last 24 Hours: Microbiology 08/06/21 09:15 Blood Blood Culture - Preliminary NO GROWTH AFTER 48 HOURS 08/06/21 09:15 Blood Blood Culture - Preliminary NO GROWTH AFTER 48 HOURS Assessment and Plan (1) Decubitus ulcer of sacral region, stage 4 Status: Acute Category: Medical Code(s): L89.154 - Pressure ulcer of sacral region, stage 4 (2) PNA (pneumonia) Status: Acute Qualifiers: Pneumonia type: due to unspecified organism Laterality: right Lung location: lower lobe of lung Qualified Code(s): J18.9 - Pneumonia, unspecified organism Category: Medical Code(s): J18.9 - Pneumonia, unspecified organism (3) Acute respiratory failure with hypoxia Status: Acute Category: Medical Code(s): J96.01 - Acute respiratory failure with hypoxia (4) Severe sepsis with acute organ dysfunction Status: Acute Category: Medical Code(s): A41.9 - Sepsis, unspecified organism; R65.20 - Severe sepsis without septic shock (5) Hypernatremia Status: Acute Category: Medical Code(s): E87.0 - Hyperosmolality and hypernatremia (6) Hypokalemia Status: Acute Category: Medical Code(s): E87.6 - Hypokalemia (7) Malnutrition Status: Acute Category: Medical Code(s): E46 - Unspecified protein-calorie malnutrition (8) Sacral decubitus ulcer, stage II Status: Acute Category: Medical Code(s): L89.152 - Pressure ulcer of sacral region, stage 2 (9) Dysphagia Status: Acute Qualifiers: Dysphagia type: unspecified Qualified Code(s): R13.10 - Dysphagia, unspecified Category: Medical Code(s): R13.10 - Dysphagia, unspecified The patient's infection will respond to the chosen ABx?: Yes Is the patient receiving the right drug, dose, and route?: Yes Could a more targeted ABx be ordered?: No (NO GROWTH IN CX, WBC WNL, AFEBRILE)
[2021-08-09 10:27] LABS: Lymphocytes % 16 % (10-50); Monocytes % 3 % (2-9); Neutrophils % 81 % (42-76); Platelet Estimate Normal; RBC Morphology Normal; Total Cells Counted 100
[2021-08-09 16:38] LABS: POC Glucose,Bedside 107 (70-110)
[2021-08-09 16:38] LABS: POC Glucose,Bedside 96 (70-110)
--- NOTE | 2021-08-09 18:40 | PC.NURSE ---
NO ACUTE CHANGES THIS SHIFT. PT REMAINS AOX4 ABLE TO MAKE NEEDS KNOWN TO STAFF. HAS BEEN TURNED Q2HRS. STILL INCONTINENT OF BOWEL AND BLADDER. DECREASED APPETITE THIS AM BUT IMPROVED THIS AFTERNOON. TOLERATED PO MEDS WELL CRUSHED IN APPLESAUCE. 6LNC FOR O2 SUPPORT. DSG TO BOTTOM C/D/I.
[2021-08-10] VITALS (10 sets, daily range): BP systolic 109–141; BP diastolic 60–77; PULSE 60–90; RESP 16–20; TEMP 36.7–37.6; O2SAT 94–100; BMI 20.3
[2021-08-10 00:42] LABS: POC Glucose,Bedside 100 (70-110)
[2021-08-10 00:42] LABS: POC Glucose,Bedside 127 (70-110)
--- NOTE | 2021-08-10 04:22 | PC.NURSE ---
No acute events thus far in this RN's shift. Patient's dressing on coccyx was changed at approximately 2200. Wet to dry dressing applied. Patient tolerated well.
--- NOTE | 2021-08-10 07:02 | PC.NURSE ---
Patient has refused morning labs
--- NOTE | 2021-08-10 09:22 | HMH.ACPN2 ---
Internal Medicine - PN: Subj *Date: 08/11/21 *Time: 07:33 Interval history: no specific c/o this am - labs pending and reviewed dr lane note Exam Vital signs and Labs for Last 24 Hours: Temp Pulse Resp BP Pulse Ox 98.7 F 70 18 120/60 94 L 08/10/21 07:45 08/10/21 07:45 08/10/21 07:45 08/10/21 07:45 08/10/21 07:45 Laboratory Results - last 24 hr 08/09/21 05:25: POC Glucose 107 08/09/21 08:08: POC Glucose 96 08/09/21 08:15: Total Counted 100, Neutrophils % (Manual) 81 H, Lymphocytes % (Manual) 16, Monocytes % (Manual) 3, Platelet Estimate Normal, RBC Morphology Normal 08/09/21 17:04: POC Glucose 127 H 08/10/21 00:33: POC Glucose 100 I & O for Last 24 hours: Intake & Output 08/07/21 08/08/21 08/09/21 08/10/21 11:59 11:59 11:59 11:59 Intake Total 1594 / 1594 2400 / 2400 1250 / 1250 840 / 840 Balance 1594 / 1594 2400 / 2400 1250 / 1250 840 / 840 Weight 144 lb 3 oz 146 lb 11.2 oz 150 lb 8 oz - Constitutional no acute distress - *Routine HEENT Exam Head: Present: normocephalic Eye: Present: EOMI, PERRL ENT: Present: mucous membranes dry - *Routine Neck Exam Absent: JVD - *Routine Respiratory Exam Present: decreased breath sounds - *Routine Cardiovascular Exam Present: RRR - *Routine Abdominal Exam Present: soft - *Routine Extremities Exam Absent: calf tenderness - *Routine Skin Exam Absent: erythema - *Routine Neurological Exam Present: alert, CN II-XII intact - Routine Psychiatric Exam Present: normal affect Assessment and Plan (1) Decubitus ulcer of sacral region, stage 4 Status: Acute Category: Medical Code(s): L89.154 - Pressure ulcer of sacral region, stage 4 (2) PNA (pneumonia) Status: Acute Qualifiers: Pneumonia type: due to unspecified organism Laterality: right Lung location: lower lobe of lung Qualified Code(s): J18.9 - Pneumonia, unspecified organism Category: Medical Code(s): J18.9 - Pneumonia, unspecified organism (3) Acute respiratory failure with hypoxia Status: Acute Category: Medical Code(s): J96.01 - Acute respiratory failure with hypoxia (4) Severe sepsis with acute organ dysfunction Status: Acute Category: Medical Code(s): A41.9 - Sepsis, unspecified organism; R65.20 - Severe sepsis without septic shock (5) Hypernatremia Status: Acute Category: Medical Code(s): E87.0 - Hyperosmolality and hypernatremia (6) Hypokalemia Status: Acute Category: Medical Code(s): E87.6 - Hypokalemia (7) Malnutrition Status: Acute Category: Medical Code(s): E46 - Unspecified protein-calorie malnutrition (8) Sacral decubitus ulcer, stage II Status: Acute Category: Medical Code(s): L89.152 - Pressure ulcer of sacral region, stage 2 (9) Dysphagia Status: Acute Qualifiers: Dysphagia type: unspecified Qualified Code(s): R13.10 - Dysphagia, unspecified Category: Medical Code(s): R13.10 - Dysphagia, unspecified (10) Protein calorie malnutrition Status: Chronic Category: Medical Code(s): E46 - Unspecified protein-calorie malnutrition (11) Cachexia Status: Chronic Category: Medical Code(s): R64 - Cachexia
[2021-08-10 16:24] LABS: POC Glucose,Bedside 100 (70-110)
[2021-08-10 16:46] LABS: POC Glucose,Bedside 150 (70-110)
[2021-08-10 16:46] LABS: POC Glucose,Bedside 124 (70-110)
[2021-08-10 17:18] LABS: POC Glucose,Bedside 123 (70-110)
[2021-08-10 18:46] LABS: MANUAL DIFFERENTIAL MANUAL DIFFERENTIAL (MANUAL DIFF)
[2021-08-10 18:50] LABS: Basophils % 0.2 % (0.1-2.0); Eosinophils % 0.5 % (0.1-12.0); Hematocrit 29.2 % (42.0-52.0); Hemoglobin 9.7 g/dL (14.1-18.0); Lymphocytes # 1.1 K/mm3 (0.7-4.5); Lymphocytes % 12.7 % (10-50); Mean Corpuscular HGB Conc 33.3 g/dL (31.8-35.4); Mean Corpuscular Hemoglobin 31.2 pg (27.0-31.2); Mean Corpuscular Volume 93.8 fl (80-94); Mean Platelet Volume 9.6 fl (7.4-10.4); Monocytes # 0.5 K/mm3 (0.1-1.0); Monocytes % 5.5 % (1.7-9.3); Neutrophils # 6.9 K/mm3 (1.8-7.8); Neutrophils % 81.2 % (37.0-80.0); Platelet Count 232 K/mm3 (142-424); Red Blood Count 3.12 M/mm3 (4.60-6.20); Red Cell Distribution Width 15.3 % (11.5-17.5); White Blood Count 8.5 K/mm3 (4.8-10.8)
[2021-08-10 18:58] LABS: Lymphocytes % 16 % (10-50); Neutrophils % 78 % (42-76); Platelet Estimate Normal; RBC Morphology Normal; Rouleaux 3+; Total Cells Counted 100
[2021-08-10 18:59] LABS: Chloride 115 mmol/L (98-107)
[2021-08-10 19:00] LABS: Potassium 3.1 mmoL/L (3.5-5.1); Sodium 145 mmol/L (136-145)
[2021-08-10 19:03] LABS: Anion Gap 6.1 mEq/L (5-15); Blood Urea Nitrogen 9 mg/dl (9-20); Carbon Dioxide 27 mmol/L (22.0-30.0); Creatinine Clearance Estimated 72 mL/min (50-200); Estimated Glomerular Filt Rate 302 ml/min (>60); GFR (African American) 365 ML/MIN (>60); Glucose 166 mg/dl (74-100)
[2021-08-11] VITALS (8 sets, daily range): BP systolic 122–144; BP diastolic 70–79; PULSE 55–84; RESP 16–20; TEMP 36.6–37.6; O2SAT 97–100; BMI 20.5
--- NOTE | 2021-08-11 05:32 | PC.NURSE ---
pt has been cooperative with care this shift, pt has been turned Q2, dressing on coccyx changed this shift, remains on 4L NC with O2 sats 97%
--- NOTE | 2021-08-11 09:06 | HMH.ACPN2 ---
Internal Medicine - PN: Subj *Date: 08/11/21 *Time: 09:08 Interval history: pt reports feeling better today - labs pending Exam Vital signs and Labs for Last 24 Hours: Temp Pulse Resp BP Pulse Ox 99.6 F 84 18 126/72 97 08/11/21 08:00 08/11/21 08:00 08/11/21 08:00 08/11/21 08:00 08/11/21 08:41 Laboratory Results - last 24 hr 08/09/21 14:34: POC Glucose 150 H 08/10/21 06:04: POC Glucose 100 08/10/21 11:14: POC Glucose 124 H 08/10/21 17:10: POC Glucose 123 H 08/10/21 18:35: Sodium 145, Potassium 3.1 L, Chloride 115 H, Carbon Dioxide 27, Anion Gap 6.1, BUN 9, Creatinine 0.30 L D, Estimated Creat Clear 72, Estimated GFR 302, Est GFR ( Amer) 365 D, Glucose 166 H, Calcium 8.0 L 08/10/21 18:35: WBC 8.5 D, RBC 3.12 L, Hgb 9.7 L, Hct 29.2 L, MCV 93.8, MCH 31.2, MCHC 33.3, RDW 15.3, Plt Count 232, MPV 9.6, Neut % (Auto) 81.2 H, Lymph % (Auto) 12.7, [place] % (Auto) 5.5, Eos % (Auto) 0.5, Baso % (Auto) 0.2, Neut # (Auto) 6.9, Lymph # (Auto) 1.1, [place] # (Auto) 0.5, Eos # (Auto) 0.0, Baso # (Auto) 0.0, Total Counted 100, Neutrophils % (Manual) 78 H, Band Neutrophils % 6.0, Lymphocytes % (Manual) 16, Platelet Estimate Normal, RBC Morphology Normal, Roule[place] 3+ I & O for Last 24 hours: Intake & Output 08/08/21 08/09/21 08/10/21 08/11/21 11:59 11:59 11:59 11:59 Intake Total 2400 / 2400 1250 / 1250 840 / 840 180 / 180 Output Total 0 / 0 Balance 2400 / 2400 1250 / 1250 840 / 840 180 / 180 Weight 146 lb 11.2 oz 150 lb 8 oz 151 lb 9.6 oz - Constitutional no acute distress, chronically ill appearing - *Routine HEENT Exam Head: Present: normocephalic Eye: Present: EOMI, PERRL ENT: Present: mucous membranes dry - *Routine Neck Exam Present: supple. Absent: JVD - *Routine Respiratory Exam Present: decreased breath sounds - *Routine Cardiovascular Exam Present: RRR, murmur, S4 - *Routine Abdominal Exam Present: soft - *Routine Extremities Exam Present: edema. Absent: calf tenderness - *Routine Skin Exam Comments: sacral healing wd - *Routine Neurological Exam Present: alert, CN II-XII intact - Routine Psychiatric Exam Present: unable to assess Assessment and Plan (1) Decubitus ulcer of sacral region, stage 4 Status: Acute Category: Medical Code(s): L89.154 - Pressure ulcer of sacral region, stage 4 (2) PNA (pneumonia) Status: Acute Qualifiers: Pneumonia type: due to unspecified organism Laterality: right Lung location: lower lobe of lung Qualified Code(s): J18.9 - Pneumonia, unspecified organism Category: Medical Code(s): J18.9 - Pneumonia, unspecified organism (3) Acute respiratory failure with hypoxia Status: Acute Category: Medical Code(s): J96.01 - Acute respiratory failure with hypoxia (4) Severe sepsis with acute organ dysfunction Status: Acute Category: Medical Code(s): A41.9 - Sepsis, unspecified organism; R65.20 - Severe sepsis without septic shock (5) Hypernatremia Status: Acute Category: Medical Code(s): E87.0 - Hyperosmolality and hypernatremia (6) Hypokalemia Status: Acute Category: Medical Code(s): E87.6 - Hypokalemia (7) Malnutrition Status: Acute Category: Medical Code(s): E46 - Unspecified protein-calorie malnutrition (8) Sacral decubitus ulcer, stage II Status: Acute Category: Medical Code(s): L89.152 - Pressure ulcer of sacral region, stage 2 (9) Dysphagia Status: Acute Qualifiers: Dysphagia type: unspecified Qualified Code(s): R13.10 - Dysphagia, unspecified Category: Medical Code(s): R13.10 - Dysphagia, unspecified (10) Protein calorie malnutrition Status: Chronic Category: Medical Code(s): E46 - Unspecified protein-calorie malnutrition (11) Cachexia Status: Chronic Category: Medical Code(s): R64 - Cachexia
--- NOTE | 2021-08-11 09:58 | HMH.ACPN ---
Internal Medicine - PN: Subj *Date: 08/11/21 *Time: 09:58 Exam Vital signs and Labs for Last 24 Hours: Temp Pulse Resp BP Pulse Ox 99.6 F 84 18 126/72 97 08/11/21 08:00 08/11/21 08:00 08/11/21 08:00 08/11/21 08:00 08/11/21 08:41 Laboratory Results - last 24 hr 08/09/21 14:34: POC Glucose 150 H 08/10/21 06:04: POC Glucose 100 08/10/21 11:14: POC Glucose 124 H 08/10/21 17:10: POC Glucose 123 H 08/10/21 18:35: Sodium 145, Potassium 3.1 L, Chloride 115 H, Carbon Dioxide 27, Anion Gap 6.1, BUN 9, Creatinine 0.30 L D, Estimated Creat Clear 72, Estimated GFR 302, Est GFR ( Amer) 365 D, Glucose 166 H, Calcium 8.0 L 08/10/21 18:35: WBC 8.5 D, RBC 3.12 L, Hgb 9.7 L, Hct 29.2 L, MCV 93.8, MCH 31.2, MCHC 33.3, RDW 15.3, Plt Count 232, MPV 9.6, Neut % (Auto) 81.2 H, Lymph % (Auto) 12.7, [place] % (Auto) 5.5, Eos % (Auto) 0.5, Baso % (Auto) 0.2, Neut # (Auto) 6.9, Lymph # (Auto) 1.1, [place] # (Auto) 0.5, Eos # (Auto) 0.0, Baso # (Auto) 0.0, Total Counted 100, Neutrophils % (Manual) 78 H, Band Neutrophils % 6.0, Lymphocytes % (Manual) 16, Platelet Estimate Normal, RBC Morphology Normal, Rouleaux 3+ I & O for Last 24 hours: Intake & Output 08/08/21 08/09/21 08/10/21 08/11/21 23:59 23:59 23:59 23:59 Intake Total 2140 / 2140 900 / 900 180 / 180 Output Total 0 / 0 Balance 2140 / 2140 900 / 900 180 / 180 0 / 0 Weight 66.542 kg 68.266 kg 68.765 kg Microbiology Reports for the Last 24 Hours: Microbiology 08/06/21 09:15 Blood Blood Culture - Final NO GROWTH AFTER 5 DAYS 08/06/21 09:15 Blood Blood Culture - Final NO GROWTH AFTER 5 DAYS Assessment and Plan (1) Decubitus ulcer of sacral region, stage 4 Status: Acute Category: Medical Code(s): L89.154 - Pressure ulcer of sacral region, stage 4 (2) PNA (pneumonia) Status: Acute Qualifiers: Pneumonia type: due to unspecified organism Laterality: right Lung location: lower lobe of lung Qualified Code(s): J18.9 - Pneumonia, unspecified organism Category: Medical Code(s): J18.9 - Pneumonia, unspecified organism (3) Acute respiratory failure with hypoxia Status: Acute Category: Medical Code(s): J96.01 - Acute respiratory failure with hypoxia (4) Severe sepsis with acute organ dysfunction Status: Acute Category: Medical Code(s): A41.9 - Sepsis, unspecified organism; R65.20 - Severe sepsis without septic shock (5) Hypernatremia Status: Acute Category: Medical Code(s): E87.0 - Hyperosmolality and hypernatremia (6) Hypokalemia Status: Acute Category: Medical Code(s): E87.6 - Hypokalemia (7) Malnutrition Status: Acute Category: Medical Code(s): E46 - Unspecified protein-calorie malnutrition (8) Sacral decubitus ulcer, stage II Status: Acute Category: Medical Code(s): L89.152 - Pressure ulcer of sacral region, stage 2 (9) Dysphagia Status: Acute Qualifiers: Dysphagia type: unspecified Qualified Code(s): R13.10 - Dysphagia, unspecified Category: Medical Code(s): R13.10 - Dysphagia, unspecified (10) Protein calorie malnutrition Status: Chronic Category: Medical Code(s): E46 - Unspecified protein-calorie malnutrition (11) Cachexia Status: Chronic Category: Medical Code(s): R64 - Cachexia The patient's infection will respond to the chosen ABx?: Yes Is the patient receiving the right drug, dose, and route?: Yes Could a more targeted ABx be ordered?: No
[2021-08-11 10:34] LABS: POC Glucose,Bedside 136 (70-110)
[2021-08-11 10:34] LABS: POC Glucose,Bedside 189 (70-110)
[2021-08-11 13:47] LABS: MANUAL DIFFERENTIAL MANUAL DIFFERENTIAL (MANUAL DIFF)
[2021-08-11 13:54] LABS: Basophils % 0.2 % (0.1-2.0); Eosinophils % 0.3 % (0.1-12.0); Lymphocytes # 0.9 K/mm3 (0.7-4.5); Lymphocytes % 12.2 % (10-50); Mean Corpuscular HGB Conc 33.2 g/dL (31.8-35.4); Mean Corpuscular Hemoglobin 30.7 pg (27.0-31.2); Mean Corpuscular Volume 92.7 fl (80-94); Mean Platelet Volume 8.5 fl (7.4-10.4); Monocytes # 0.3 K/mm3 (0.1-1.0); Monocytes % 3.9 % (1.7-9.3); Neutrophils # 5.9 K/mm3 (1.8-7.8); Neutrophils % 83.4 % (37.0-80.0); Platelet Count 182 K/mm3 (142-424); Red Blood Count 2.81 M/mm3 (4.60-6.20); Red Cell Distribution Width 15.5 % (11.5-17.5); White Blood Count 7.1 K/mm3 (4.8-10.8)
[2021-08-11 14:13] LABS: Hemoglobin 8.7 g/dL (14.1-18.0); Vancomycin,Trough 7.5 ug/mL (5.0-10.0)
[2021-08-11 14:15] LABS: Chloride 116 mmol/L (98-107)
[2021-08-11 14:16] LABS: Sodium 146 mmol/L (136-145)
[2021-08-11 14:19] LABS: Anion Gap 6.5 mEq/L (5-15); Blood Urea Nitrogen 8 mg/dl (9-20); Calcium 8.1 mg/dl (8.4-10.2); Carbon Dioxide 26 mmol/L (22.0-30.0); Creatinine Clearance Estimated 73 mL/min (50-200); Estimated Glomerular Filt Rate 217 ml/min (>60); GFR (African American) 262 ML/MIN (>60); Glucose 136 mg/dl (74-100)
[2021-08-11 14:26] LABS: Potassium 2.5 mmoL/L (3.5-5.1)
--- NOTE | 2021-08-11 14:34 | HMH.PHACONS ---
- Pharmacy Consult Date: 08/11/21 Time: 14:34 Referring provider: DR. WITT Reason for Consult:: VANCOMYCIN TROUGH LEVEL Allergies and ADEs:: Allergies Allergy/AdvReac Type Severity Reaction Status Date / Time No Known Allergies Allergy Verified 08/11/21 13:26 Home Medications:: Home Medications Medication Instructions Recorded Confirmed Type risperiDONE [Risperidone] 1 mg PO HS 08/12/20 08/11/21 History Benztropine Mesylate [Cogentin 1mg 1 mg PO HS 04/12/21 08/11/21 History tablet] Linagliptin [Tradjenta 5mg tablet] 5 mg PO DAILYDM 04/12/21 08/11/21 History Metformin HCl [Glucophage 500mg 500 mg PO BIDWMEAL 04/12/21 08/11/21 History Tablet] glipiZIDE [Glucotrol 5mg tablet] 5 mg PO BIDWMEAL 04/12/21 08/11/21 History lisinopriL [Zestril 10mg Tab] 10 mg PO DAILY 04/12/21 08/11/21 History Omeprazole [Omeprazole 20mg 20 mg PO DAILY 07/02/21 08/11/21 History Capsule] Sertraline HCl [Zoloft 100mg 100 mg PO DAILY 07/02/21 08/11/21 History tablet] Divalproex Sodium [Depakote] 750 mg PO BID 07/03/21 08/11/21 History Docusate Sodium [Docusate Sod 100 mg PO BID 08/06/21 08/11/21 History Liquid 100mg/10mL udc] Ipratropium/Albuterol Sulfate 3 ml IH Q4HP PRN 08/06/21 08/11/21 History [Iprat-Albut 0.5-3(2.5) mg/3 ml] predniSONE [Prednisone 20mg 20 mg PO DAILY 08/06/21 08/11/21 History Tab] Height: 1.83 m Weight: 68.765 kg Laboratory Results:: Laboratory Results - last 24 hr 08/09/21 14:34: POC Glucose 150 H 08/10/21 06:04: POC Glucose 100 08/10/21 11:14: POC Glucose 124 H 08/10/21 17:10: POC Glucose 123 H 08/10/21 18:35: Sodium 145, Potassium 3.1 L, Chloride 115 H, Carbon Dioxide 27, Anion Gap 6.1, BUN 9, Creatinine 0.30 L D, Estimated Creat Clear 72, Estimated GFR 302, Est GFR ( Amer) 365 D, Glucose 166 H, Calcium 8.0 L 08/10/21 18:35: WBC 8.5 D, RBC 3.12 L, Hgb 9.7 L, Hct 29.2 L, MCV 93.8, MCH 31.2, MCHC 33.3, RDW 15.3, Plt Count 232, MPV 9.6, Neut % (Auto) 81.2 H, Lymph % (Auto) 12.7, [place] % (Auto) 5.5, Eos % (Auto) 0.5, Baso % (Auto) 0.2, Neut # (Auto) 6.9, Lymph # (Auto) 1.1, [place] # (Auto) 0.5, Eos # (Auto) 0.0, Baso # (Auto) 0.0, Total Counted 100, Neutrophils % (Manual) 78 H, Band Neutrophils % 6.0, Lymphocytes % (Manual) 16, Platelet Estimate Normal, RBC Morphology Normal, Rouleaux 3+ 08/10/21 21:25: POC Glucose 189 H 08/11/21 06:29: POC Glucose 136 H 08/11/21 13:37: Sodium 146 H, Potassium 2.5 L*, Chloride 116 H, Carbon Dioxide 26, Anion Gap 6.5, BUN 8 L, Creatinine 0.40 L D, Estimated Creat Clear 73, Estimated GFR 217, Est GFR ( Amer) 262 D, Glucose 136 H, Calcium 8.1 L 08/11/21 13:37: WBC 7.1, RBC 2.81 L, Hgb 8.7 L D, Hct 26.0 L, MCV 92.7, MCH 30.7, MCHC 33.2, RDW 15.5, Plt Count 182, MPV 8.5, Neut % (Auto) 83.4 H, Lymph % (Auto) 12.2, [place] % (Auto) 3.9, Eos % (Auto) 0.3, Baso % (Auto) 0.2, Neut # (Auto) 5.9, Lymph # (Auto) 0.9, [place] # (Auto) 0.3, Eos # (Auto) 0.0, Baso # (Auto) 0.0 08/11/21 13:37: Vancomycin Trough 7.5 Medical History: Reports:: BPH, Cerebrovascular Accident, Diabetes Mellitus Type 2, Gastroesophageal Reflux Disease(GERD), Hyperlipidemia, Hypertension, Seizures Assessment and Plan (1) Decubitus ulcer of sacral region, stage 4 Status: Acute Category: Medical Code(s): L89.154 - Pressure ulcer of sacral region, stage 4 (2) PNA (pneumonia) Status: Acute Qualifiers: Pneumonia type: due to unspecified organism Laterality: right Lung location: lower lobe of lung Qualified Code(s): J18.9 - Pneumonia, unspecified organism Category: Medical Code(s): J18.9 - Pneumonia, unspecified organism (3) Acute respiratory failure with hypoxia Status: Acute Category: Medical Code(s): J96.01 - Acute respiratory failure with hypoxia (4) Severe sepsis with acute organ dysfunction Status: Acute Category: Medical Code(s): A41.9 - Sepsis, unspecified organism; R65.20 - Severe sepsis without septic shock (5) Hypernatremia Status: Acut
[2021-08-11 14:57] LABS: Eosinophils % 1 % (0-3); Lymphocytes % 13 % (10-50); Monocytes % 1 % (2-9); Neutrophils % 84 % (42-76); Total Cells Counted 100
[2021-08-11 14:58] LABS: Platelet Estimate Normal; RBC Morphology Normal
[2021-08-11 15:55] LABS: POC Glucose,Bedside 152 (70-110)
--- NOTE | 2021-08-11 16:45 | PC.NURSE ---
contacted regarding potassium. new orders received
[2021-08-11 19:06] LABS: Vancomycin,Peak 27.6 ug/ml (11-39)
[2021-08-12] VITALS (9 sets, daily range): BP systolic 118–157; BP diastolic 71–94; PULSE 55–84; RESP 16–20; TEMP 36.4–37.5; O2SAT 94–100; BMI 19.9
--- NOTE | 2021-08-12 05:27 | PC.NURSE ---
Pt. able to state name, , and place at beginning of shift; unable to state year. Pt. follows commands. Dsg change at 0500 with yellow drainage on dsg, wound to coccyx 3in x 2in with 1.5 in tunneling. Packed with saline soaked gauze. Pt. tolerated dsg change well. Currently on 3l nc with o2 sat 95-96%. No episodes of n/v/d, dizziness or pain reported.
[2021-08-12 09:25] LABS: Basophils % 0.3 % (0.1-2.0); Eosinophils # 0.1 K/mm3 (0.0-0.4); Eosinophils % 0.6 % (0.1-12.0); Hematocrit 27.4 % (42.0-52.0); Lymphocytes # 1.1 K/mm3 (0.7-4.5); Lymphocytes % 13.6 % (10-50); Mean Corpuscular HGB Conc 32.7 g/dL (31.8-35.4); Mean Corpuscular Hemoglobin 29.6 pg (27.0-31.2); Mean Corpuscular Volume 90.6 fl (80-94); Mean Platelet Volume 9.1 fl (7.4-10.4); Monocytes # 0.3 K/mm3 (0.1-1.0); Neutrophils # 6.6 K/mm3 (1.8-7.8); Neutrophils % 81.4 % (37.0-80.0); Platelet Count 235 K/mm3 (142-424); Red Blood Count 3.02 M/mm3 (4.60-6.20); Red Cell Distribution Width 15.4 % (11.5-17.5); White Blood Count 8.2 K/mm3 (4.8-10.8)
[2021-08-12 09:32] LABS: Chloride 115 mmol/L (98-107); Sodium 146 mmol/L (136-145)
--- NOTE | 2021-08-12 09:34 | HMH.ACPN2 ---
Internal Medicine - PN: Subj *Date: 08/12/21 *Time: 08:40 Interval history: pt alert, laying in bed Exam Vital signs and Labs for Last 24 Hours: Temp Pulse Resp BP Pulse Ox 98.0 F 74 16 122/78 94 L 08/12/21 08:00 08/12/21 08:00 08/12/21 08:00 08/12/21 08:00 08/12/21 08:00 Laboratory Results - last 24 hr 08/10/21 21:25: POC Glucose 189 H 08/11/21 06:29: POC Glucose 136 H 08/11/21 12:15: POC Glucose 152 H 08/11/21 13:37: Sodium 146 H, Potassium 2.5 L*, Chloride 116 H, Carbon Dioxide 26, Anion Gap 6.5, BUN 8 L, Creatinine 0.40 L D, Estimated Creat Clear 73, Estimated GFR 217, Est GFR ( Amer) 262 D, Glucose 136 H, Calcium 8.1 L 08/11/21 13:37: WBC 7.1, RBC 2.81 L, Hgb 8.7 L D, Hct 26.0 L, MCV 92.7, MCH 30.7, MCHC 33.2, RDW 15.5, Plt Count 182, MPV 8.5, Neut % (Auto) 83.4 H, Lymph % (Auto) 12.2, [place] % (Auto) 3.9, Eos % (Auto) 0.3, Baso % (Auto) 0.2, Neut # (Auto) 5.9, Lymph # (Auto) 0.9, [place] # (Auto) 0.3, Eos # (Auto) 0.0, Baso # (Auto) 0.0, Total Counted 100, Neutrophils % (Manual) 84 H, Band Neutrophils % 1.0, Lymphocytes % (Manual) 13, Monocytes % (Manual) 1 L, Eosinophils % (Manual) 1, Platelet Estimate Normal, RBC Morphology Normal 08/11/21 13:37: Vancomycin Trough 7.5 08/11/21 18:00: Vancomycin Peak 27.6 08/12/21 08:55: WBC 8.2, RBC 3.02 L, Hgb 9.0 L, Hct 27.4 L, MCV 90.6, MCH 29.6, MCHC 32.7, RDW 15.4, Plt Count 235 D, MPV 9.1, Neut % (Auto) 81.4 H, Lymph % (Auto) 13.6, [place] % (Auto) 4.0, Eos % (Auto) 0.6, Baso % (Auto) 0.3, Neut # (Auto) 6.6, Lymph # (Auto) 1.1, [place] # (Auto) 0.3, Eos # (Auto) 0.1, Baso # (Auto) 0.0 I & O for Last 24 hours: Intake & Output 08/09/21 08/10/21 08/11/21 08/12/21 11:59 11:59 11:59 11:59 Intake Total 1250 / 1250 840 / 840 180 / 180 90 / 90 Output Total 0 / 0 0 / 0 Balance 1250 / 1250 840 / 840 180 / 180 90 / 90 Weight 150 lb 8 oz 151 lb 9.6 oz 147 lb 1 oz Microbiology Reports for the Last 24 Hours: Microbiology 08/06/21 09:15 Blood Blood Culture - Final NO GROWTH AFTER 5 DAYS 08/06/21 09:15 Blood Blood Culture - Final NO GROWTH AFTER 5 DAYS - Constitutional no acute distress, chronically ill appearing - *Routine HEENT Exam Head: Present: normocephalic Eye: Present: PERRL ENT: Present: mucous membranes moist - *Routine Neck Exam Present: supple. Absent: lymphadenopathy - *Routine Respiratory Exam Present: rhonchi - *Routine Cardiovascular Exam Present: RRR - *Routine Abdominal Exam Present: soft, normoactive bowel sounds. Absent: tenderness - *Routine Extremities Exam Absent: cyanosis, clubbing, edema - *Routine Skin Exam Present: wounds Comments: stage 4 to coccyx yasmani heels stage 2 - *Routine Neurological Exam Present: alert Assessment and Plan (1) Decubitus ulcer of sacral region, stage 4 Status: Acute Category: Medical Code(s): L89.154 - Pressure ulcer of sacral region, stage 4 (2) PNA (pneumonia) Status: Acute Qualifiers: Pneumonia type: due to unspecified organism Laterality: right Lung location: lower lobe of lung Qualified Code(s): J18.9 - Pneumonia, unspecified organism Category: Medical Code(s): J18.9 - Pneumonia, unspecified organism (3) Acute respiratory failure with hypoxia Status: Acute Category: Medical Code(s): J96.01 - Acute respiratory failure with hypoxia (4) Severe sepsis with acute organ dysfunction Status: Acute Category: Medical Code(s): A41.9 - Sepsis, unspecified organism; R65.20 - Severe sepsis without septic shock (5) Hypernatremia Status: Acute Category: Medical Code(s): E87.0 - Hyperosmolality and hypernatremia (6) Hypokalemia Status: Acute Category: Medical Code(s): E87.6 - Hypokalemia (7) Malnutrition Status: Acute Qualifiers: Malnutrition type: protein-calorie malnutrition Protein-calorie malnutrition severity: severe Qualified Code(s): E43 - Unspeci
[2021-08-12 09:35] LABS: Anion Gap 8.8 mEq/L (5-15); Blood Urea Nitrogen 7 mg/dl (9-20); Calcium 8.6 mg/dl (8.4-10.2); Carbon Dioxide 25 mmol/L (22.0-30.0); Creatinine Clearance Estimated 70 mL/min (50-200); Estimated Glomerular Filt Rate 217 ml/min (>60); GFR (African American) 262 ML/MIN (>60); Glucose 115 mg/dl (74-100)
--- NOTE | 2021-08-12 10:12 | PC.NURSE ---
Called critical to [facility]- left message. Potassium 2.8
[2021-08-12 10:13] LABS: Potassium 2.8 mmoL/L (3.5-5.1)
--- NOTE | 2021-08-12 11:05 | DIET.NUTRFU ---
Pt PO intake poor. Pt eating for pleasure currently. Waiting on paperwork for DNR/Hospice per MD progress note.
[2021-08-12 17:33] LABS: POC Glucose,Bedside 89 (70-110)
[2021-08-12 17:33] LABS: POC Glucose,Bedside 75 (70-110)
[2021-08-12 21:37] LABS: POC Glucose,Bedside 84 (70-110)
[2021-08-13] VITALS: BP 162/82; PULSE 80; PULSE 84; RESP 16; TEMP 37.4; O2SAT 98
[2021-08-13 03:48] LABS: POC Glucose,Bedside 56 (70-110)
[2021-08-13 04:00] VITALS: BP 160/70; PULSE 60; PULSE 88; RESP 16; TEMP 36.8; O2SAT 100
[2021-08-13 08:00] VITALS: BP 143/71; PULSE 60; PULSE 67; RESP 16; TEMP 36.6; O2SAT 98
[2021-08-13 08:13] LABS: POC Glucose,Bedside 69 (70-110)
[2021-08-13 09:51] LABS: MANUAL DIFFERENTIAL MANUAL DIFFERENTIAL (MANUAL DIFF)
[2021-08-13 09:53] LABS: Basophils % 0.3 % (0.1-2.0); Eosinophils % 0.5 % (0.1-12.0); Hematocrit 26.8 % (42.0-52.0); Hemoglobin 8.7 g/dL (14.1-18.0); Lymphocytes % 13.4 % (10-50); Mean Corpuscular HGB Conc 32.4 g/dL (31.8-35.4); Mean Corpuscular Hemoglobin 30.1 pg (27.0-31.2); Mean Corpuscular Volume 92.8 fl (80-94); Mean Platelet Volume 9.6 fl (7.4-10.4); Monocytes # 0.3 K/mm3 (0.1-1.0); Monocytes % 3.5 % (1.7-9.3); Neutrophils % 82.3 % (37.0-80.0); Platelet Count 194 K/mm3 (142-424); Red Blood Count 2.89 M/mm3 (4.60-6.20); Red Cell Distribution Width 15.7 % (11.5-17.5); White Blood Count 7.3 K/mm3 (4.8-10.8)
[2021-08-13 10:16] LABS: Lymphocytes % 14 % (10-50); Monocytes % 7 % (2-9); Neutrophils % 79 % (42-76); Nucleated Red Blood Cells 1; Total Cells Counted 100
[2021-08-13 10:17] LABS: Platelet Estimate Normal
[2021-08-13 10:18] LABS: Hypochromasia 2+; Macrocytosis 1+
[2021-08-13 10:22] LABS: Coronavirus 19, PCR Not Detected (NotDetected); Influenza A, PCR Not Detected (NotDetected); Influenza B, PCR Not Detected (NotDetected)
[2021-08-13 10:39] LABS: Chloride 117 mmol/L (98-107); Sodium 146 mmol/L (136-145)
[2021-08-13 10:40] LABS: Potassium 3.1 mmoL/L (3.5-5.1)
[2021-08-13 10:42] LABS: Blood Urea Nitrogen 7 mg/dl (9-20); Creatinine Clearance Estimated 71 mL/min (50-200); Estimated Glomerular Filt Rate 302 ml/min (>60); GFR (African American) 365 ML/MIN (>60)
[2021-08-13 10:43] LABS: Anion Gap 6.1 mEq/L (5-15); Calcium 8.8 mg/dl (8.4-10.2); Carbon Dioxide 26 mmol/L (22.0-30.0); Glucose 79 mg/dl (74-100)
[2021-08-13 11:31] LABS: POC Glucose,Bedside 78 (70-110)
[2021-08-13 12:00] VITALS: BP 137/77; PULSE 60; PULSE 66; RESP 16; TEMP 36.9; O2SAT 96
--- NOTE | 2021-08-13 12:26 | PC.NURSE ---
Pt refused morning meds and dressing change at this time.
--- NOTE | 2021-08-13 14:10 | HMH.DCSUM ---
General - General Admission date:: 08/06/21 Discharge date: 08/13/21 HPI HPI: 66 YOM presented to [facility] ED with fever and increasing SOA. He has had pneumonia recently and oxygenation 91% on 4l per NC. He has a Stage 4 Ulcer with packing intact. Hospital Course Hospital Course: this patient has had slow but progressive decline and improved some on the floor- seen by dr lane to determine hospice status I was asked to see Mr. Sahu today given his chronic debility, history of CVA, recurring pneumonias, CODE STATUS, and desire for patient to continue to eat. On interview patient is very clear that he does not want a feeding tube. In reviewing his chart he has significant electrolyte abnormalities including hyponatremia, hypokalemia, presented in what appears to be sepsis secondary to pneumonia. Pneumonia most likely from aspiration. Discussed with Mr. Sahu that he will likely continue to aspirate or inhale food as long as he eats. He states he understands but enjoys eating. Reviewed labs and imaging. -Febrile and hypotensive on admission; hypoxemic. Hypernatremia, hypo-kalemia, hyperchloremia indicative of dehydration with significant free water deficit. Overall met sepsis criteria on admission. -Chronic conditions including CVA with residual left-sided deficits, seizure disorder, diabetes, hypertension; pressure ulcers from immobility and bedbound status; protein calorie malnutrition -This is his third admission in 5 months for pneumonia/respiratory failure gia Sahu is a 66-year-old gentleman with history of CVA and multiple complex comorbidities (see patient history and subjective portion of this note) who presented for the third time in 5 months with sepsis, pneumonia, hypoxemic respiratory failure, and significant electrolyte abnormalities. Patient's pneumonia is related to his dysphagia and risk for aspiration. In my opinion patient will continue to aspirate and have recurring pneumonias as long as he continues to eat. At this time it is one of the few pleasurable activities he has left and in my opinion a feeding tube would be more torturous/counterproductive than beneficial and not in line with patient's personal goals of care as he desires to continue to eat. In this setting I would recommend continuing with feeding knowing the risk for pneumonia. I would also recommend transitioning to DNR status given that his goals align more with palliative therapies (pleasure feeds) then not. pt has sig chronic illness which are not curable and has been seen by speech therapy x 2 and determined to be definite aspiration risk and needs feeding tube but pt wishes to not have that and i feel he understands and will be hospice and comfort care for end of life care that allows pt to eat as he can and be given comfort measures - he has been stable at this time and will be d/c to [facility] for hospice and end of life care Objective Vital signs: Temp Pulse Resp BP Pulse Ox 98.4 F 66 16 137/77 96 08/13/21 12:00 08/13/21 12:00 08/13/21 12:00 08/13/21 12:00 08/13/21 12:00 no acute distress, chronically ill appearing - *Routine HEENT Exam Head: Present: normocephalic Eye: Present: EOMI, PERRL ENT: Present: mucous membranes dry - *Routine Neck Exam Absent: JVD - *Routine Respiratory Exam Present: decreased breath sounds, rhonchi - *Routine Cardiovascular Exam Present: RRR, murmur, S4 - *Routine Abdominal Exam Present: soft - *Routine Extremities Exam Present: edema. Absent: calf tenderness - *Routine Skin Exam Comments: resolving sacral decubitus - no new skin lesions - *Routine Neurological Exam Present: altered mental status chronic changes - awake and answers to name - Routine Psychiatric Exam Present: unable to assess Results Labs on day of discharge: Labs from last 24 hours 08/13/21 08/13/21 08/13/21 11:22 09:52 09:40 WBC RBC Hgb Hct MCV MCH MCHC R
[2021-08-13 14:20] LABS: Chloride 116 mmol/L (98-107); Potassium 3.3 mmoL/L (3.5-5.1); Sodium 147 mmol/L (136-145)
[2021-08-13 14:23] LABS: Anion Gap 8.3 mEq/L (5-15); Blood Urea Nitrogen 8 mg/dl (9-20); Carbon Dioxide 26 mmol/L (22.0-30.0); Creatinine Clearance Estimated 71 mL/min (50-200); Estimated Glomerular Filt Rate 217 ml/min (>60); GFR (African American) 262 ML/MIN (>60)
[2021-08-13 14:24] LABS: Calcium 8.2 mg/dl (8.4-10.2); Glucose 78 mg/dl (74-100)
[2021-08-13 16:08] LABS: Vancomycin,Trough 22.9 ug/mL (5.0-10.0)
== END 2021-08-13 15:40 | DRG 871 ==
LOC: ER 09:23 → 2ND 10:33
PROVIDERS: Nurse Practitioner Family; Admitting Provider Emergency Medicine; Emergency Provider Student in an Organized Health Care Education/Training Program; PCP Emergency Medicine; Visit Provider Emergency Medicine
DX: A41.9 Sepsis, unspecified organism (principal); L89.154 Pressure ulcer of sacral region, stage 4; J96.01 Acute respiratory failure with hypoxia; J69.0 Pneumonitis due to inhalation of food and vomit; E87.0 Hyperosmolality and hypernatremia; E46 Unspecified protein-calorie malnutrition; Z68.1 Body mass index [BMI] 19.9 or less, adult; Z20.822 Contact with and (suspected) exposure to COVID-19; E11.9 Type 2 diabetes mellitus without complications; I10 Essential (primary) hypertension; E87.6 Hypokalemia; R65.20 Severe sepsis without septic shock; E78.5 Hyperlipidemia, unspecified; G20 Parkinson's disease; Z79.84 Long term (current) use of oral hypoglycemic drugs; N40.0 Benign prostatic hyperplasia without lower urinary tract symptoms; Z86.73 Personal history of transient ischemic attack (TIA), and cerebral infarction without residual deficits; Z68.20 Body mass index [BMI] 20.0-20.9, adult
CPT/HCPCS: 36415; 71045; 72192; 80048; 80053; 80202; 82803; 82962; 83605; 84484; 85007; 85014; 85018; 85025; 85048; 85049; 87040; 92610; 93005; 94760; 94761; 96365; 96367; 99284; C9803; J2543; U0003; U0005